=== PATIENT | female | born 1930 | race American Indian/Alaskan Native ===

== ENCOUNTER 2017-02-11 19:23 | Inpatient (IN) | payer MEDICARE, BC ==
[2017-02-11 19:23] VITALS: BMI 32.8
[2017-02-11] MEDS ORDERED: Sodium Chloride 0.9% 1,000 ML IV STA (20:05)
--- NOTE | 2017-02-11 20:42 | ED PDOC ---
HPI: Altered Mental Status Time Seen by Provider: 02/11/17 19:48 Chief Complaint (Nursing): Altered Mental Status Chief Complaint (Provider): Dementia History Per: Patient, Family Current Symptoms Are (Timing): Still Present Additional Complaint(s): Anne Marie Sears is a 86 y/o female, with a past medical history of Diabetes Mellitus and Dementia, presenting to the ER on 02/11/2017 for evaluation of her worsening dementia and confusion. Patient was brought in today by her family, who states she has been progressively showing symptoms such as forgetting things , spacing out during the middle of her conversations with her eyes rolling back. Specifically, she has not been eating as much as she routinely has over the past three weeks. The family today are worried about her health since she is a diabetic, prompting them to seek medical evaluation. The patient has no complaints at this time. However, the HPI is limited due to the patient's state of dementia. Past Medical History Reviewed: Historical Data, Nursing Documentation, Vital Signs Vital Signs: Last Vital Signs Temp 98 F 02/11/17 19:28 Pulse 69 02/11/17 19:28 Resp 16 02/11/17 19:28 BP 96/48 L 02/11/17 19:28 Pulse Ox 98 02/11/17 19:28 - Medical History PMH: Dementia, Diabetes, HTN - Surgical History Surgical History: No Surg Hx - Family History Family History: States: Unknown Family Hx - Social History Current smoker - smoking cessation education provided: No Alcohol: None Drugs: Denies - Home Medications Home Medications: Ambulatory Orders Medication Instructions Recorded Amlodipine/Atorvastatin [Caduet 10 1 tab PO DAILY 02/11/17 mg-10 mg] Aspirin [Aspirin Chewable] 81 mg PO DAILY 02/11/17 Insulin Glargine, Recombina 30 unit SC HS 02/11/17 [Lantus] Lisinopril/Hydrochlorothiazide 1 tab PO DAILY 02/11/17 [Lisinopril-Hydrochlorothiazide 25 mg-20 mg] Repaglinide [Prandin] 2 mg PO ACTID 02/11/17 Sitagliptin Phos/Metformin HCl 1 each PO BID 02/11/17 [Janumet 50-1,000 mg Tablet] Sitagliptin Phos/Metformin HCl 1 tab PO BID 02/12/17 [Janumet 50-1,000 mg Tablet] - Allergies Allergies/Adverse Reactions: Allergies Allergy/AdvReac Type Severity Reaction Status Date / Time No Known Allergies Allergy Verified 02/12/17 00:27 Review of Systems Review Of Systems: ROS cannot be obtained secondary to pt's inabilty to answer questions. Neurological: Positive for: Confusion Physical Exam - Reviewed Nursing Documentation Reviewed: Yes Vital Signs Reviewed: Yes - Physical Exam Appears: Positive for: Non-toxic, No Acute Distress (pt has soiled underpants ) Head Exam: Positive for: ATRAUMATIC, NORMOCEPHALIC Skin: Positive for: Normal Color, Warm, Dry Eye Exam: Positive for: Normal appearance, EOMI, PERRL Neck: Positive for: Normal, Painless ROM, Supple Cardiovascular/Chest: Positive for: Regular Rate, Rhythm. Negative for: Murmur Respiratory: Positive for: Normal Breath Sounds. Negative for: Wheezing, Respiratory Distress Gastrointestinal/Abdominal: Positive for: Normal Exam, Soft. Negative for: Tenderness Extremity: Positive for: Normal ROM, Other (pt has 5/5 strength in all four extremities ). Negative for: Deformity, Swelling Neurologic/Psych: Positive for: Alert, Oriented (x2), Other (pt shows global weakness ). Negative for: Motor/Sensory Deficits - Laboratory Results Result Diagrams: 02/11/17 20:25 02/11/17 20:25 - ECG O2 Sat by Pulse Oximetry: 98 Medical Decision Making Medical Decision Makin:48 Initial Impression- Worsening Dementia. Differential diagnosis includes but not limited to UTI vs. ACS vs. Psych Initial Plan- * EKG * Alcohol Serum * CMP * Lipase * Drug Screen * Troponin * CBC w/ differential * PT * PTT * CXR * Blood Cx * Urine Cx * Re-evaluated 22:24 Pt will be admitted to family practice. Currently waiting for call back from Dr. Louise. Will insert Robin to assess for post obstructive cause for acute renal failure. Likely pt is suffering from pre-renal insufficiency with potential for intrinsic kidney disease. 22:55 Case was consulted with Dr. Louise, who has agreed to dialyze the pt in the morning. Pt will be placed for telemetry for now unless condition deteriorates. Documented by Addison Forrester, acting as a scribe for Gavino Lares MD. All medical record entries made by the Scribe were at my direction and personally dictated by me. I have reviewed the chart and agree that the record accurately reflects my personal performance of the history, physical exam, medical decision making, and the department course for this patient. I have also personally directed, reviewed, and agree with the discharge instructions and disposition. Disposition - Clinical Impression Clinical Impression: Acute renal failure, Hyperkalemia - Disposition Disposition Time: 22:24 Condition: STABLE
[2017-02-11 21:09] LABS: BASO % 0.5 % (0.0-2.0); HEMATOCRIT 36.5 % (34.0-47.0); LYMPH # 0.9 K/uL (1.0-4.3); MEAN CELL VOLUME 86.3 fl (81.0-99.0); MEAN CORPUSCULAR HEMOGLOBIN 27.8 pg (27.0-31.0); MEAN CORPUSCULAR HGB CONC 32.2 g/dL (33.0-37.0); MEAN PLATELET VOLUME 10.3 fl (7.2-11.7); MONO # 0.6 K/uL (0.0-0.8); MONO % 7.7 % (0.0-10.0); NEUT # 5.8 K/uL (1.8-7.0); NEUT % 79.8 % (50.0-75.0); RED CELL DISTRIBUTION WIDTH 15.2 % (11.5-14.5); WHITE BLOOD COUNT 7.3 K/uL (4.8-10.8)
[2017-02-11 21:15] LABS: PARTIAL THROMBOPLASTIN TIME 27.7 Seconds (25.6-37.1)
[2017-02-11 21:22] LABS: ALB/GLOB RATIO 1.3 (1.0-2.1); ALCOHOL SERUM < 10 mg/dl (0-10); ALKALINE PHOSPHATASE 61 U/L (38-126); ALT/SGPT 24 U/L (9-52); AST/SGOT 28 U/L (14-36); BILIRUBIN,TOTAL 0.6 mg/dl (0.2-1.3); BLOOD UREA NITROGEN 69 mg/dl (7-17); CALCIUM 10.6 mg/dL (8.4-10.2); CHLORIDE 110 mmol/L (98-107); GFR AFRICAN-AMERICAN 4; GLUCOSE,RANDOM 138 mg/dL (65-105); LIPASE 716 U/L (23-300); SODIUM 140 mmol/l (132-148); TOTAL PROTEIN 7.4 G/DL (6.3-8.2)
[2017-02-11 21:32] LABS: CARBON DIOXIDE 8 mmol/L (22-30); POTASSIUM 6.7 MMOL/L (3.6-5.0)
[2017-02-11] MEDS ORDERED: Sod Polystyrene Sulf 15 gm/60 ml Oral Susp PO ONE (21:58)
[2017-02-11] MEDS ORDERED: Insulin Regular 100 units/ml IV STA (21:58)
[2017-02-11] MEDS ORDERED: Dextrose 50% SYRINGE Inj (50 ml) IVP ONE (21:58)
[2017-02-11] MEDS ORDERED: Albuterol 0.083% Inhal Sol (2.5 mg/3 mL) UD INH STA (21:58)
[2017-02-11] MEDS ORDERED: Albuterol 0.083% Inhal Sol (2.5 mg/3 mL) UD ONE (22:08)
[2017-02-11] MEDS ORDERED: Dextrose 50% SYRINGE Inj (50 ml) ONE (22:09)
[2017-02-11] MEDS ORDERED: Insulin Regular 100 units/ml ONE (22:09)
[2017-02-11] MEDS ORDERED: Sod Polystyrene Sulf 15 gm/60 ml Oral Susp ONE (22:11)
--- NOTE | 2017-02-11 22:58 | CP.PCM.HP ---
History of Present Illness - History of Present Illness History of Present Illness: CC: Decrease appetite, increased lethargy as per family History as per family at bedside 86F with baseline dementia brought in by ambulance for concernc of increased lethargy/sleepiness. Family reports decrease appetite for 2 weeks, increased sleepiness/lethargy x2 days, and low blood glucose x3 days at times requiring juice, and reports of urinary frequency x2 days. Nausea/vomiting x2 today with episode of incontinence in the ambulance. They deny any evidence of fevers, chills, diarrhea, falls, but one family member did say that she was complaining of "back pain" yesterday. PMD: Dr Barron (last visit 01/01/2017) PMH: Diabetes, Dementia, HTN; no [place]/TIA/CVA PSH: Denies Smoke: Never ALL: NKDA MARISABEL: See Med [facility] ED COURSE VSS: 36.6- 87- 98/57- 20- 100% CBC: 7.3>11.8/36.5<197, MCV- 86.3, Neut- 79.8%, but absolute neutrophils WNL CMP: 140/6.7H- 110/8L- 69/10.1, Gluc- 138H, ALP/AST/ALT- 61/28/24, TBili- 0.6, TProt/Alb- 7.4/4.1 Lipase:716H Troponin: 0.0730 Alcohol: < 10 AB.14/17/101/8.3/98.6/-21.2 Utox: Negative UA/UCx: PENDING BCx: PENDING CXR: no acute pathology ABD US: IMPRESSION: Small hepatic hemangioma; no gallstones or ductal dilatation EKG: SR, HR-74, no ST-T abnormalities, no T-wave abnormality noted Calcium Gluconate Insulin IVF Zofran Kayexalate Nephrology Consult (Dr Louise): Will dialyze in AM Present on Admission - Present on Admission Any Indicators Present on Admission: No Review of Systems - Review of Systems Systems not reviewed;Unavailable: Altered Mental Status Past Patient History - Past Social History Alcohol: None Drugs: Denies - CARDIAC Hx Hypertension: Yes - NEUROLOGICAL Hx Dementia: Yes - ENDOCRINE/METABOLIC Hx Endocrine Disorders: Yes Hx Diabetes Mellitus Type 1: Yes - HEMATOLOGICAL/ONCOLOGICAL Hx Blood Disorders: No - INTEGUMENTARY Hx Dermatological Problems: No - MUSCULOSKELETAL/RHEUMATOLOGICAL Hx Musculoskeletal Disorders: No - GASTROINTESTINAL Hx Gastrointestinal Disorders: No - GENITOURINARY/GYNECOLOGICAL Hx Genitourinary Disorders: No - PSYCHIATRIC Hx Psychophysiologic Disorder: No Hx Substance Use: No - SURGICAL HISTORY Hx Surgeries: No - ANESTHESIA Hx Anesthesia: No Meds Allergies/Adverse Reactions: Allergies Allergy/AdvReac Type Severity Reaction Status Date / Time No Known Allergies Allergy Verified 02/12/17 00:27 Physical Exam - Constitutional Appears: Non-toxic, No Acute Distress - Head Exam Head Exam: ATRAUMATIC, NORMAL INSPECTION - Eye Exam Eye Exam: EOMI, PERRL - Neck Exam Neck exam: Positive for: Full Rom, Normal Inspection. Negative for: Lymphadenopathy - Respiratory Exam Respiratory Exam: Clear to Auscultation Bilateral, NORMAL BREATHING PATTERN. absent: Rales, Wheezes - Cardiovascular Exam Cardiovascular Exam: Diastolic murmur, REGULAR RHYTHM. absent: JVD - GI/Abdominal Exam GI & Abdominal Exam: Hypoactive Bowel Sounds, Soft, Tenderness (epigastrum). absent: Guarding, Rebound - Extremities Exam Extremities exam: Positive for: full ROM, normal capillary refill, pedal pulses present. Negative for: calf tenderness, pedal edema, tenderness - Back Exam Back exam: CVA tenderness (L) - Neurological Exam Neurological exam: Alert (Awakens easily, but is only oriented to name at BASELINE) - Psychiatric Exam Psychiatric exam: Normal Affect - Skin Skin Exam: Dry, Intact, Warm Results - Vital Signs Recent Vital Signs: Last Vital Signs Temp 36.6 C 02/11/17 19:28 Pulse 69 02/11/17 19:28 Resp 16 02/11/17 19:28 BP 96/48 L 02/11/17 19:28 Pulse Ox 98 02/11/17 22:27 - Labs Result Diagrams: 02/11/17 20:25 02/11/17 23:35 Assessment & Plan (1) DIPAK (acute kidney injury) Assessment and Plan: Unclear etiology, but given reports of back pain and urinary frequency suspect nephrolithiasis vs. drug-induced vs. infectious (though less likely with absence of fevers or leukocytosis). BUN/Cr: 6.83 suggestive of intrinsic vs post-renal obstruction. ABG significant for pH of 7.14. - Nephrology Consult (Dr Louise): Will dialyze in AM - HOLD and minimize nephrotoxic drugs - monitor BUN/Cr, Potassium - f/u UA, UCx, rpt BMP - KUB - Urine lytes - EKG in AM - D5W + 2amps bicarb (100mEQ) @ 75cc/hr - d/w Dr Richardson Status: Acute (2) DVT prophylaxis Assessment and Plan: Heparin 5,000U, SC, Q8H Status: Acute (3) Diabetes Assessment and Plan: Chronic with last A1C- 8.1 (01/22/2017). There was a recent change from Humalog to Prandin ACTID. - HOLD renally excreted medications at this time - Accu-checks ACHS - Hypoglycemic Bundle Status: Chronic (4) Hypertension Assessment and Plan: Currently hypotensive, will hold medications. Status: Chronic (5) Dementia Assessment and Plan: Baseline dementia, oriented to person, lives by herself, ambulates without assistance at baseline, family assists with IADLs. Status: Chronic
--- NOTE | 2017-02-11 23:19 | US ---
EXAM: US Abdomen Complete CLINICAL HISTORY: 86 years old, female; Signs and symptoms; Vomiting; Additional info: Vomiting, confused, R/O cholecystitis TECHNIQUE: Real-time ultrasound of the abdomen (complete) with image documentation. EXAM DATE/TIME: 02/11/2017 9:09 PM COMPARISON: There are no prior studies for comparison. FINDINGS: Liver: There is a 1.7 x 1.2 x 2 cm hyperechoic nodule in the right lobe of the liver. There is mild increased echogenicity of the liver.There is hepatopedal flow in the main portal vein. Gallbladder: Gallbladder is only partially distended with no stones, sludge or wall thickening. Common bile duct: Common bile duct measures 3.8 mm in diameter Pancreas: Pancreas is partially obscured by bowel gas. Visualized portion of the pancreas is unremarkable. Kidneys: Kidneys are unremarkable. Spleen: Spleen is unremarkable. Aorta: Visualized portions of the aorta and inferior vena cava are unremarkable. Inferior vena cava: See above. IMPRESSION: Small hepatic hemangioma; no gallstones or ductal dilatation Patient was not tender over the gallbladder
[2017-02-11 23:50] LABS: ABG ALLEN TEST YES; ARTERIAL BLOOD GAS HCO3 8.3 mmol/L (21-28); ARTERIAL BLOOD GAS O2 CONTENT 15.8 ML/dL (15-23); ARTERIAL BLOOD GAS PH 7.14 (7.35-7.45); ARTERIAL BLOOD GAS PO2 101 mm/Hg (80-100); ARTERIAL BLOOD HGB O2 SAT 94.5 % (95.0-98.0); CARBOXYHEMOGLOBIN 0.8 % (0.5-1.5); HHB 1.3 % (0.0-5.0); METHEMOGLOBIN 3.4 % (0.0-3.0)
[2017-02-12] MEDS ORDERED: Glucagon Recombinant 1 mg Inj IM PRN (00:03)
[2017-02-12] MEDS ORDERED: Dextrose 50% SYRINGE Inj (50 ml) IV PRN (00:03)
[2017-02-12 00:44] LABS: ALB/GLOB RATIO 1.2 (1.0-2.1); BILIRUBIN,TOTAL 0.5 mg/dl (0.2-1.3); CALCIUM 10.6 mg/dL (8.4-10.2); POTASSIUM 6.1 MMOL/L (3.6-5.0); TOTAL PROTEIN 7.4 G/DL (6.3-8.2)
[2017-02-12] MEDS: NS IV SCH ×2 (01:06→02:03)
[2017-02-12] MEDS: DEXTROSE IV SCH ×2 (01:06→02:03)
[2017-02-12] MEDS: SODIUM BICARBONATE IV SCH ×2 (01:06→02:03)
[2017-02-12] MEDS ORDERED: Insulin Regular 100 units/ml SC ONE (01:29)
[2017-02-12] MEDS ORDERED: Albuterol 0.083% Inhal Sol (2.5 mg/3 mL) UD INH STA (01:30)
[2017-02-12] MEDS ORDERED: SODIUM BICARBONATE IV SCH (01:40)
[2017-02-12] MEDS ORDERED: NS IV SCH (01:40)
[2017-02-12] MEDS ORDERED: DEXTROSE IV SCH (01:40)
[2017-02-12] MEDS ORDERED: Sodium Chloride 0.9% 1,000 ML IV SCH (01:45)
[2017-02-12 05:27] LABS: CALCIUM 10.8 mg/dL (8.4-10.2)
[2017-02-12 05:45] LABS: POTASSIUM 6.2 MMOL/L (3.6-5.0)
[2017-02-12 06:43] LABS: BASO % 0.2 % (0.0-2.0); HEMATOCRIT 39.4 % (34.0-47.0); LYMPH # 0.6 K/uL (1.0-4.3); LYMPH % 5.1 % (20.0-40.0); MEAN CELL VOLUME 90.1 fl (81.0-99.0); MEAN CORPUSCULAR HEMOGLOBIN 27.6 pg (27.0-31.0); MEAN CORPUSCULAR HGB CONC 30.6 g/dL (33.0-37.0); MEAN PLATELET VOLUME 11.2 fl (7.2-11.7); MONO # 0.6 K/uL (0.0-0.8); MONO % 5.1 % (0.0-10.0); NEUT # 10.3 K/uL (1.8-7.0); NEUT % 89.6 % (50.0-75.0); NRBC % 0.1 % (0.0-0.0); PLATELET COUNT 168 K/uL (130-400); RED CELL DISTRIBUTION WIDTH 16.9 % (11.5-14.5); WHITE BLOOD COUNT 11.5 K/uL (4.8-10.8)
[2017-02-12 06:45] LABS: ALB/GLOB RATIO 1.3 (1.0-2.1); ALKALINE PHOSPHATASE 48 U/L (38-126); ALT/SGPT 12 U/L (9-52); AST/SGOT 32 U/L (14-36); BILIRUBIN,TOTAL 0.6 mg/dl (0.2-1.3); BLOOD UREA NITROGEN 66 mg/dl (7-17); CALCIUM 10.8 mg/dL (8.4-10.2); CHLORIDE 112 mmol/L (98-107); GFR AFRICAN-AMERICAN 4; GLUCOSE,RANDOM 160 mg/dL (65-105); LIPASE 764 U/L (23-300); SODIUM 150 mmol/l (132-148); TOTAL PROTEIN 7.6 G/DL (6.3-8.2)
[2017-02-12 06:50] LABS: CARBON DIOXIDE < 5 mmol/L (22-30); POTASSIUM 6.3 MMOL/L (3.6-5.0)
[2017-02-12] MEDS ORDERED: Insulin Lispro (humaLOG) 100 Units/ml Inj SC SCH (07:30)
[2017-02-12] MEDS ORDERED: Sod Polystyrene Sulf 15 gm/60 ml Oral Susp PO ONE (07:34)
[2017-02-12] MEDS: Insulin Regular 100 units/ml SC SCH ×4 (09:11→22:34)
[2017-02-12 10:01] LABS: NEUTROPHIL 90 % (42-75); TOTAL CELLS COUNTED 100
--- NOTE | 2017-02-12 10:05 | RAD ---
PROCEDURE: CHEST RADIOGRAPH, 1 VIEW HISTORY: worsening dementia, weakness COMPARISON: Comparison is made to the previous study dated 08/16/2013 FINDINGS: LUNGS: No evidence of new infiltrate or consolidation in the lungs. PLEURA: No pneumothorax or pleural fluid seen. CARDIOVASCULAR: Normal. OSSEOUS STRUCTURES: No significant abnormalities. VISUALIZED UPPER ABDOMEN: Normal. OTHER FINDINGS: None. IMPRESSION: No radiographic evidence of acute pulmonary disease.
--- NOTE | 2017-02-12 10:32 | CP.PCM.PN ---
Subjective - Date & Time of Evaluation Date of Evaluation: 02/12/17 Time of Evaluation: 07:15 - Subjective Subjective: Patient seen and examined at bedside, laying in bed, appears confused, follows few commands (squeeze my fingers/push my hands), did not verbally answer questions, via head gestures denies abd pain, chest pain, SOB. IVF running, patient spontaneously moving bilateral upper extremities. Sister is at bedside and reports patients older daughter and son are on their way to the hospital. Objective - Vital Signs/Intake and Output Vital Signs (last 24 hours): Temp Pulse Resp BP Pulse Ox 97.4 F L 70 16 109/58 L 95 02/12/17 09:00 02/12/17 09:00 02/12/17 09:00 02/12/17 09:00 02/12/17 09:00 - Medications Medications: Current Medications Dextrose (Dextrose 50% Inj) 0 ml IV STAT PRN; Protocol PRN Reason: Hyglycemia Protocol Dextrose (Glutose 15) 0 gm PO ONCE PRN; Protocol PRN Reason: Hypoglycemia Protocol Glucagon (Glucagen Diagnostic Kit) 0 mg IM STAT PRN; Protocol PRN Reason: Hypoglycemia Protocol Heparin Sodium (Porcine) (Heparin) 5,000 units SC Q8 FÉLIX PRN Reason: Protocol Last Admin: 02/12/17 09:13 Dose: Not Given Sodium Chloride (Sodium Chloride 0.9%) 1,000 mls @ 100 mls/hr IV .Q10H FÉLIX Stop: 02/13/17 01:40 Last Admin: 02/12/17 02:01 Dose: 100 mls/hr Sodium Bicarbonate 100 meq/ (Dextrose) 1,112.107 mls @ 101.101 mls/hr IV .Q11H FÉLIX Stop: 02/13/17 04:54 Last Admin: 02/12/17 05:15 Dose: 101.101 mls/hr Dextrose/Sodium Chloride (Dextrose 5%/0.45% Ns 1000 Ml) 1,000 mls @ 100 mls/hr IV .Q10H FÉLIX Stop: 02/13/17 10:17 Insulin Human Regular (Humulin R) 0 units SC ACHS FÉLIX PRN Reason: Protocol Last Admin: 02/12/17 09:11 Dose: Not Given - Labs Labs: 02/12/17 05:30 02/12/17 05:30 PT 11.2 Seconds (9.8-13.1) 02/11/17 20:25 INR 1.0 (0.9-1.2) 02/11/17 20:25 APTT 27.7 Seconds (25.6-37.1) 02/11/17 20:25 - Constitutional Appears: Confused - Head Exam Head Exam: ATRAUMATIC, NORMOCEPHALIC - Eye Exam Eye Exam: EOMI, PERRL - ENT Exam ENT Exam: Mucous Membranes Moist - Neck Exam Neck Exam: Full ROM. absent: Lymphadenopathy - Respiratory Exam Respiratory Exam: absent: Rhonchi, Wheezes - Cardiovascular Exam Cardiovascular Exam: REGULAR RHYTHM. absent: Gallop - GI/Abdominal Exam GI & Abdominal Exam: Soft, Diminished Bowel Sounds. absent: Tenderness - Exam Exam: absent: Bladder Distension (quiñones catheter in place) - Extremities Exam Extremities Exam: Full ROM. absent: Calf Tenderness, Pedal Edema - Back Exam Back Exam: absent: CVA tenderness (L), CVA tenderness (R) - Neurological Exam Neurological Exam: Alert, Awake (confused, follows few commands, not responding to questions verbally) - Psychiatric Exam Psychiatric exam: Flat Affect - Skin Skin Exam: Dry, Intact, Normal Color, Warm Assessment and Plan - Assessment and Plan (Free Text) Assessment: 86 yr old F admitted for change in mental status, lethargy, urinary frequency, decreased PO intake and vomiting x 2 episodes, found to have acute on chronic kidney disease, metabolic acidosis, hypotension, hyperkalemia. EKG sinus rhythm with premature supraventricular complexes, otherwise wnl. CXR:no radiographic evidence of acute pulmonary disease. Patient was treated with calcium gluconate , IVF, Nephrology was consulted and HD was scheduled, IR consult was called and HD catheter was placed, patient was transferred to ICU for further management. Patient has PMHx of baseline dementia, CKD stage III-A, NIDDM, HTN and HLD. Plan: 1. Acute on Chronic Kidney Injury -likely secondary to dehydration and infection (UTI) -leukocytosis 11.5 this AM, UA large leukocytes, afebrile -Abd xray: no nephrolithiasis -Abd US: Small hepatic hemangioma, no gallstones or ductal dilatation. - Nephrology Consult appreciated (Dr Louise): HD scheduled for now, IVF D5 1/2 NS and Bicarb at 100 mls/hr, will follow recommendations - HOLD and minimize nephrotoxic drugs - monitor BUN/Cr, Potassium - f/u UCx, BCx, CBC, CMP, procalcitonin 2. Delirium -acute, likely secondary to renal failure -baseline dementia -f/u Ucx, Bcx, procalcitonin 2. Diabetes -uncontrolled, chronic -HbA1c 8.1 (01/22/2017) -HOLD renally excreted medications at this time -Humulin R SC ACHS -Hypoglycemia protocol 3. Hypertension -chronic, patient currently hypotensive, -hold medications for now (home medications: Caudet 10-10= Amlodipine 10mg/ Atorvastatin 10mg PO QD and Lisinopril/HCTZ 20-25 mg PO QD) -monitor BP 4. Dementia -chronic, stable -Baseline dementia, lives by herself, ambulates without assistance at baseline, family assists with ADLs. 5. DVT prophylaxis -Heparin 5,000U, SC, Q8H -SCD's
--- NOTE | 2017-02-12 10:46 | CP.PCM.CON ---
History of Present Illness - History of Present Illness History of Present Illness: This patient who is 86 years old brought to the emergency room because of increasing mental changes and drowsiness and she was fond to have high potassium in the emergency room with a high BUN/creatinine and creatinine for which I was called to see this patient for further evaluation. Patient was given treatment for hyperkalemia as discussed with the ER physician. Her past medical history related to diabetes mellitus apparently also related to history of mental changes as well. Patient has been follow-up in the clinic and to have a serum creatinine has been normal or near-normal about that a few months ago. Medications reviewed and noted including lisinopril and hydrochlorothiazide. Social history I spoke to the son who is at the bedside and also the sister who is at the bedside. Review of Systems - Review of Systems Systems not reviewed;Unavailable: Respiratory Distress - Constitutional Constitutional: Anorexia, Fatigue, Malaise, Weakness - EENT Eyes: As Per HPI Nose/Mouth/Throat: As Per HPI - Cardiovascular Cardiovascular: absent: Chest Pain, Dyspnea, Leg Edema - Gastrointestinal Gastrointestinal: Nausea, Vomiting. absent: Abdominal Pain, Coffee Ground Emesis - Genitourinary Genitourinary: As Per HPI - Musculoskeletal Musculoskeletal: Abnormal Gait, Muscle Weakness - Neurological Neurological: Disequilibrium, Weakness - Hematologic/Lymphatic Hematologic: As Per HPI Past Patient History - Past Medical History & Family History Past Medical History?: Yes - Past Social History Alcohol: None Drugs: Denies - CARDIAC Hx Hypertension: Yes - PULMONARY Hx Respiratory Disorders: No - NEUROLOGICAL Hx Dementia: Yes - HEENT Hx HEENT Problems: No - RENAL Hx Chronic Kidney Disease: No - ENDOCRINE/METABOLIC Hx Endocrine Disorders: Yes Hx Diabetes Mellitus Type 1: Yes - HEMATOLOGICAL/ONCOLOGICAL Hx Blood Disorders: No - INTEGUMENTARY Hx Dermatological Problems: No - MUSCULOSKELETAL/RHEUMATOLOGICAL Hx Musculoskeletal Disorders: No - GASTROINTESTINAL Hx Gastrointestinal Disorders: No - GENITOURINARY/GYNECOLOGICAL Hx Genitourinary Disorders: No - PSYCHIATRIC Hx Psychophysiologic Disorder: No Hx Substance Use: No - SURGICAL HISTORY Hx Surgeries: No - ANESTHESIA Hx Anesthesia: No Meds Allergies/Adverse Reactions: Allergies Allergy/AdvReac Type Severity Reaction Status Date / Time No Known Allergies Allergy Verified 02/12/17 00:27 - Medications Medications: Current Medications Dextrose (Dextrose 50% Inj) 0 ml IV STAT PRN; Protocol PRN Reason: Hyglycemia Protocol Dextrose (Glutose 15) 0 gm PO ONCE PRN; Protocol PRN Reason: Hypoglycemia Protocol Glucagon (Glucagen Diagnostic Kit) 0 mg IM STAT PRN; Protocol PRN Reason: Hypoglycemia Protocol Heparin Sodium (Porcine) (Heparin) 5,000 units SC Q8 FÉLIX PRN Reason: Protocol Last Admin: 02/12/17 09:13 Dose: Not Given Sodium Chloride (Sodium Chloride 0.9%) 1,000 mls @ 100 mls/hr IV .Q10H FÉLIX Stop: 02/13/17 01:40 Last Admin: 02/12/17 02:01 Dose: 100 mls/hr Sodium Bicarbonate 100 meq/ (Dextrose) 1,112.107 mls @ 101.101 mls/hr IV .Q11H FÉLIX Stop: 02/13/17 04:54 Last Admin: 02/12/17 05:15 Dose: 101.101 mls/hr Dextrose/Sodium Chloride (Dextrose 5%/0.45% Ns 1000 Ml) 1,000 mls @ 100 mls/hr IV .Q10H FÉLIX Stop: 02/13/17 10:17 Insulin Human Regular (Humulin R) 0 units SC ACHS FÉLIX PRN Reason: Protocol Last Admin: 02/12/17 09:11 Dose: Not Given Physical Exam - Constitutional Appears: No Acute Distress - ENT Exam ENT Exam: Mucous Membranes Dry - Respiratory Exam Respiratory Exam: NORMAL BREATHING PATTERN. absent: Chest Wall Tenderness, Rales - Cardiovascular Exam Cardiovascular Exam: REGULAR RHYTHM. absent: JVD, Rubs - GI/Abdominal Exam GI & Abdominal Exam: Normal Bowel Sounds - Extremities Exam Extremities exam: Negative for: calf tenderness - Back Exam Back exam: absent: CVA tenderness (L), CVA tenderness (R) - Neurological Exam Neurological exam: Altered Results - Vital Signs Recent Vital Signs: Last Vital Signs Temp 97.4 F L 02/12/17 09:00 Pulse 95 H 02/12/17 09:00 Resp 16 02/12/17 09:00 BP 109/58 L 02/12/17 09:00 Pulse Ox 95 02/12/17 09:00 - Labs Result Diagrams: 02/12/17 05:30 02/12/17 05:30 Labs: Laboratory Results - last 24 hr 02/11/17 02/11/17 02/11/17 23:15 23:35 23:35 WBC RBC Hgb Hct MCV MCH MCHC RDW Plt Count MPV Neut % (Auto) Lymph % (Auto) [place] % (Auto) Eos % (Auto) Baso % (Auto) Neut # Lymph # [place] # Eos # Baso # Neutrophils % (Manual) Lymphocytes % (Manual) Monocytes % (Manual) Platelet Estimate Anisocytosis (manual) pCO2 17 L* pO2 101 H HCO3 8.3 L* ABG pH 7.14 L* ABG Total CO2 6.3 L ABG O2 Saturation 98.6 H ABG O2 Content 15.8 ABG Base Excess -21.2 L ABG Hemoglobin 11.8 ABG Carboxyhemoglobin 0.8 POC ABG HHb (Measured) 1.3 ABG Methemoglobin 3.4 H ABG O2 Capacity 16.0 Pawan Test Yes A-a O2 Difference 27.0 Hgb O2 Saturation 94.5 L FiO2 21.0 Blood Gas Comments Ra Crit Value Called To Dr narda mohan Crit Value Called By 333 Crit Value Read Back Y Blood Gas Notified Time 2350 Sodium 142 Potassium 6.1 H Chloride 109 H Carbon Dioxide 5 L* D Anion Gap 34 H BUN 67 H Creatinine 10.6 H* Est GFR ( Amer) 4 Est GFR (Non-Af Amer) 3 POC Glucose (mg/dL) Random Glucose 230 H Calcium 10.6 H Total Bilirubin 0.5 AST 26 ALT 19 Alkaline Phosphatase 58 Total Creatine Kinase Troponin I Total Protein 7.4 Albumin 4.1 Globulin 3.4 Albumin/Globulin Ratio 1.2 Lipase Urine Opiates Screen Negative Urine Methadone Screen Negative Ur Barbiturates Screen Negative Ur Phencyclidine Scrn Negative Ur Amphetamines Screen Negative U Benzodiazepines Scrn Negative U Oth Cocaine Metabols Negative U Cannabinoids Screen Negative 02/12/17 02/12/17 02/12/17 04:00 04:53 05:14 WBC RBC Hgb Hct MCV MCH MCHC RDW Plt Count MPV Neut % (Auto) Lymph % (Auto) [place] % (Auto) Eos % (Auto) Baso % (Auto) Neut # Lymph # [place] # Eos # Baso # Neutrophils % (Manual) Lymphocytes % (Manual) Monocytes % (Manual) Platelet Estimate Anisocytosis (manual) pCO2 pO2 HCO3 ABG pH ABG Total CO2 ABG O2 Saturation ABG O2 Content ABG Base Excess ABG Hemoglobin ABG Carboxyhemoglobin POC ABG HHb (Measured) ABG Methemoglobin ABG O2 Capacity [place] Test A-a O2 Difference Hgb O2 Saturation FiO2 Blood Gas Comments Crit Value Called To Crit Value Called By Crit Value Read Back Blood Gas Notified Time Sodium 143 Potassium 6.2 H* Chloride 110 H Carbon Dioxide 5 L* Anion Gap 34 H BUN 68 H Creatinine 11.1 H* Est GFR ( Amer) 4 Est GFR (Non-Af Amer) 3 POC Glucose (mg/dL) 174 H Random Glucose 177 H Calcium 10.8 H Total Bilirubin AST ALT Alkaline Phosphatase Total Creatine Kinase 88 Troponin I Total Protein Albumin Globulin Albumin/Globulin Ratio Lipase Urine Opiates Screen Urine Methadone Screen Ur Barbiturates Screen Ur Phencyclidine Scrn Ur Amphetamines Screen U Benzodiazepines Scrn U Oth Cocaine Metabols U Cannabinoids Screen 02/12/17 02/12/17 05:30 05:30 WBC 11.5 H D RBC 4.37 Hgb 12.0 Hct 39.4 MCV 90.1 D MCH 27.6 MCHC 30.6 L RDW 16.9 H Plt Count 168 MPV 11.2 Neut % (Auto) 89.6 H Lymph % (Auto) 5.1 L [place] % (Auto) 5.1 Eos % (Auto) 0.0 Baso % (Auto) 0.2 Neut # 10.3 H Lymph # 0.6 L [place] # 0.6 Eos # 0.0 Baso # 0.0 Neutrophils % (Manual) 90 H Lymphocytes % (Manual) 7 L Monocytes % (Manual) 3 Platelet Estimate Normal Anisocytosis (manual) Slight pCO2 pO2 HCO3 ABG pH ABG Total CO2 ABG O2 Saturation ABG O2 Content ABG Base Excess ABG Hemoglobin ABG Carboxyhemoglobin POC ABG HHb (Measured) ABG Methemoglobin ABG O2 Capacity [place] Test A-a O2 Difference Hgb O2 Saturation FiO2 Blood Gas Comments Crit Value Called To Crit Value Called By Crit Value Read Back Blood Gas Notified Time Sodium 150 H Potassium 6.3 H* Chloride 112 H Carbon Dioxide < 5 L* Anion Gap 39 H BUN 66 H Creatinine 11.1 H* Est GFR ( Amer) 4 Est GFR (Non-Af Amer) 3 POC Glucose (mg/dL) Random Glucose 160 H Calcium 10.8 H Total Bilirubin 0.6 AST 32 ALT 12 Alkaline Phosphatase 48 Total Creatine Kinase Troponin I 0.0730 Total Protein 7.6 Albumin 4.3 Globulin 3.3 Albumin/Globulin Ratio 1.3 Lipase 764 H Urine Opiates Screen Urine Methadone Screen Ur Barbiturates Screen Ur Phencyclidine Scrn Ur Amphetamines Screen U Benzodiazepines Scrn U Oth Cocaine Metabols U Cannabinoids Screen Assessment & Plan - Assessment and Plan (Free Text) Assessment: Patient appears to have acute kidney failure superimposed on chronic kidney disease? Patient has normal kidney function in October 2016 suggesting go for acute renal failure Hyperkalemia with metabolic acidosis Patient was treated for hyperkalemia and emergency room also on the floor including Kayexalate most recent dose Spoke to the son and the sister at the bedside and consent was taken for hemodialysis Spoke to the interventional radiologist to put temporary dialysis catheter Coordination of care was done including the resident and interventional radiologist and the nurse.
--- NOTE | 2017-02-12 10:48 | RAD ---
HISTORY: r/o nephrolithiasis COMPARISON: No prior. FINDINGS: BOWEL: Normal. No obstruction. No free air. BONES: Normal. OTHER FINDINGS: No radiographic evidence of nephrolithiasis. IMPRESSION: No active disease. No radiographic evidence of nephrolithiasis.
[2017-02-12 11:09] LABS: BLOOD UREA NITROGEN 64 mg/dl (7-17); CALCIUM 10.5 mg/dL (8.4-10.2); CHLORIDE 107 mmol/L (98-107); GFR AFRICAN-AMERICAN 4; GLUCOSE,RANDOM 248 mg/dL (65-105); SODIUM 147 mmol/l (132-148)
[2017-02-12] MEDS: Dextrose 5%/0.45% NS 1,000 ML IV SCH (11:11)
[2017-02-12 11:14] LABS: CARBON DIOXIDE < 5 mmol/L (22-30); POTASSIUM 5.9 MMOL/L (3.6-5.0)
[2017-02-12 11:52] LABS: RBC URINE 6 /hpf (0-3); URINE BACTERIA FEW (<OCC); URINE BILIRUBIN NEGATIVE (NEGATIVE); URINE BLOOD LARGE (NEGATIVE); URINE COLOR AMBER (YELLOW); URINE GLUCOSE (UA) 50 mg/dL (Normal); URINE KETONE NEGATIVE (NEGATIVE); URINE LEUKOCYTE ESTERASE LARGE Leu/uL (Negative); URINE PROTEIN >=500 mg/dL (NEGATIVE); URINE UROBILINOGEN 0.2-1.0 mg/dL (0.2-1.0); WBC URINE 17 /hpf (0-5)
[2017-02-12 11:57] LABS: ABG ALLEN TEST YES; ARTERIAL BLOOD GAS HCO3 5.6 mmol/L (21-28); ARTERIAL BLOOD GAS O2 CAPACITY 15.6 mL/dL (16-24); ARTERIAL BLOOD GAS O2 CONTENT 15.6 ML/dL (15-23); ARTERIAL BLOOD GAS PH 7.07 (7.35-7.45); ARTERIAL BLOOD GAS PO2 148 mm/Hg (80-100); ARTERIAL BLOOD HGB O2 SAT 96.9 % (95.0-98.0); CARBOXYHEMOGLOBIN 1.2 % (0.5-1.5); HHB 0.1 % (0.0-5.0); METHEMOGLOBIN 1.8 % (0.0-3.0)
[2017-02-12] MEDS ORDERED: Lidocaine 1% Inj (20ml) ONE (12:30)
--- NOTE | 2017-02-12 13:11 | PCM.SURG1 ---
Surgeon's Initial Post Op Note - Surgeon's Notes Surgeon: Telly Alcantara MD Business Line Controller: None Type of Anesthesia: Local Pre-Operative Diagnosis: Renal failure Operative Findings: Patent right IJV Post-Operative Diagnosis: Renal failure Operation Performed: Non tunneled HD catheter placement Specimen/Specimens Removed: None Estimated Blood Loss: EBL {In ML}: 4 Blood Products Given: N/A Drains Used: No Drains Post-Op Condition: Poor Date of Surgery/Procedure: 02/12/17 Time of Surgery/Procedure: 13:05
[2017-02-12] MEDS ORDERED: HYDROmorphone 0.5 mg/0.5 ml ISec IVP STA (13:38)
--- NOTE | 2017-02-12 13:50 | CARD ---
APPROVED REPORT EKG Measurement Heart [id number] <Conclusion> Sinus rhythm with premature supraventricular complexes Otherwise normal ECG
[2017-02-12] MEDS ORDERED: Sodium Bicarbonate 7.5% (0.9 MEQ/ML) 50ML INJ IV ONE (14:17)
[2017-02-12] MEDS ORDERED: Sodium Chloride 0.9% 250 ML IV ONE (14:24)
--- NOTE | 2017-02-12 14:35 | CP.CCUPN ---
CCU Subjective - Physician Review Events Since Last Encounter (Free Text): 02/12/17 19:48 The Patient was seen and examined at the bedside with the ICU team. Management issues were discussed and formulated. 86 Y/O F with PMHx of HTN, Diabetes and Dementia, was brought to the emergency room last night for increasing mental changes and drowsiness and she was found to be in Acute Kidney Injury with high potassium and severe metabolic acidosis, ICU consulted today for worsening renal function, persistent hyperkalemia and AMS/ Delirium Patient on IV fluids and Bicarb drip Patient underwent Right IJ non tunneled HD catheter placement, and currently started on HD. She is slightly confused, pulling lines and oplaced on soft restrains. Patient comfortable, NAD Saturating 100% on RA AFebrile CCU Objective - Vital Signs / Intake & Output Vital Signs (Last 4 hours): Vital Signs Temp Pulse Resp BP Pulse Ox 02/12/17 14:00 89 29 H 85/70 L 100 02/12/17 13:02 93 H 36 H 104/48 L 100 02/12/17 11:55 96 F L 90 30 H 119/55 L 100 - Physical Exam Physical Exam Limitations: Positive for: Altered Mental Status, Clinical Condition, Uncooperative Head: Positive for: Atraumatic, Normocephalic. Negative for: Tenderness, Contusion, Swelling, Ecchymosis Pupils: Positive for: PERRL. Negative for: Sluggish, Non-Reactive, Pinpoint Extroacular Muscles: Positive for: EOMI. Negative for: Gaze Palsy, Entrapment Conjunctiva: Positive for: Normal. Negative for: Injected, Icteric Mouth: Positive for: Dry Pharnyx: Positive for: Normal Nose (Internal): Positive for: Normal Inspection Neck: Positive for: Normal Range of Motion, Trachea Midline. Negative for: Meningeal Signs, MIDLINE TENDERNESS, Paraspinal Tenderness, JVD, Lymphadenopathy , Bruit, Other Respiratory/Chest: Positive for: Good Air Exchange, Tachypneic. Negative for: Respiratory Distress, Accessory Muscle Use, Wheezes, Decreased Breath Sounds, Rales, Retracting, Rhonchi Cardiovascular: Positive for: Regular Rate and Rhythm, Normal S1, S2, Peripheal Pulses Present. Negative for: Murmurs, Irregular Rhythm, Tachycardic, Bradycardic Abdomen: Negative for: Tenderness, Distention Upper Extremity: Positive for: Normal Inspection, NORMAL PULSES. Negative for: Edema Lower Extremity: Positive for: Normal Inspection, NORMAL PULSES. Negative for: Edema, CALF TENDERNESS Neurological: Positive for: Motor Func Grossly Intact, Normal Sensory Function Psychiatric: Positive for: Anxious, Agitated - Medications Active Medications: Active Medications Generic Name Dose Route Start Last Admin Trade Name Freq PRN Reason Stop Dose Admin Dextrose 0 ml 02/12/17 00:03 Dextrose 50% Inj IV STAT PRN Hyglycemia Protocol Protocol Dextrose 0 gm 02/12/17 00:03 Glutose 15 PO ONCE PRN Hypoglycemia Protocol Protocol Glucagon 0 mg 02/12/17 00:03 Glucagen Diagnostic Kit IM STAT PRN Hypoglycemia Protocol Protocol Heparin Sodium (Porcine) 5,000 units 02/12/17 01:00 02/12/17 09:13 Heparin SC Not Given Q8 FÉLIX Protocol Sodium Bicarbonate 100 meq/ 1,112.107 mls @ 101.101 mls/hr 02/12/17 04:54 05:15 Dextrose IV 02/13/17 04:54 101.101 mls/hr .Q11H FÉLIX Administration Dextrose/Sodium Chloride 1,000 mls @ 100 mls/hr 02/12/17 10:30 02/12/17 11:11 Dextrose 5%/0.45% Ns 1000 Ml IV 02/13/17 10:17 100 mls/hr .Q10H FÉLIX Administration Sodium Chloride 250 mls @ 500 mls/hr 02/12/17 14:24 Sodium Chloride 0.9% IV 02/12/17 14:53 .Q30M ONE Insulin Human Regular 0 units 02/12/17 07:30 02/12/17 09:11 Humulin R SC Not Given ACHS FÉLIX Protocol Sodium Bicarbonate 89.2 meq 02/12/17 14:17 Sodium Bicarbonate 7.5% (0.9 Meq/Ml) 50 Ml IV 02/12/17 14:18 ONCE ONE - Patient Studies Lab Studies: Lab Studies 02/12/17 02/12/17 02/12/17 Range/Units 13:42 11:50 11:45 WBC (4.8-10.8) K/uL RBC (3.80-5.20) Mil/uL Hgb (12.0-16.0) g/dL Hct (34.0-47.0) % MCV (81.0-99.0) fl MCH (27.0-31.0) pg MCHC (33.0-37.0) g/dL RDW (11.5-14.5) % Plt Count (130-400) K/uL MPV (7.2-11.7) fl Neut % (Auto) (50.0-75.0) % Lymph % (Auto) (20.0-40.0) % [place] % (Auto) (0.0-10.0) % Eos % (Auto) (0.0-4.0) % Baso % (Auto) (0.0-2.0) % Neut # (1.8-7.0) K/uL Lymph # (1.0-4.3) K/uL [place] # (0.0-0.8) K/uL Eos # (0.0-0.7) K/uL Baso # (0.0-0.2) K/uL Neutrophils % (Manual) (42-75) % Lymphocytes % (Manual) (20-50) % Monocytes % (Manual) (0-10) % Platelet Estimate (NORMAL) Anisocytosis (manual) pCO2 11 L* (35-45) mm/Hg pO2 148 H (80-100) mm/Hg HCO3 5.6 L* (21-28) mmol/L ABG pH 7.07 L* (7.35-7.45) ABG Total CO2 3.5 L (22-28) mmol/L ABG O2 Saturation 99.9 H (95-98) % ABG O2 Content 15.6 (15-23) ML/dL ABG Base Excess -24.8 L (-2.0-3.0) mmol/L ABG Hemoglobin 11.2 L (11.7-17.4) g/dL ABG Carboxyhemoglobin 1.2 (0.5-1.5) % POC ABG HHb (Measured) 0.1 (0.0-5.0) % ABG Methemoglobin 1.8 (0.0-3.0) % ABG O2 Capacity 15.6 L (16-24) mL/dL Pawan Test Yes A-a O2 Difference 38.0 mm/Hg Hgb O2 Saturation 96.9 (95.0-98.0) % FiO2 28.0 % Blood Gas Comments Crit Value Called To Dr sam calixto Crit Value Called By Ms Crit Value Read Back Y Blood Gas Notified Time 1155 Sodium (132-148) mmol/l Potassium (3.6-5.0) MMOL/L Chloride (98-107) mmol/L Carbon Dioxide (22-30) mmol/L Anion Gap (10-20) BUN (7-17) mg/dl Creatinine (0.7-1.2) mg/dL Est GFR ( Amer) Est GFR (Non-Af Amer) POC Glucose (mg/dL) 334 H 274 H (65-110) mg/dL Random Glucose (65-105) mg/dL Calcium (8.4-10.2) mg/dL Total Bilirubin (0.2-1.3) mg/dl AST (14-36) U/L ALT (9-52) U/L Alkaline Phosphatase (38-126) U/L Total Creatine Kinase (30-135) U/L Troponin I (0.00-0.120) ng/mL Total Protein (6.3-8.2) G/DL Albumin (3.5-5.0) g/dL Globulin (2.2-3.9) gm/dL Albumin/Globulin Ratio (1.0-2.1) Lipase (23-300) U/L Urine Color (YELLOW) Urine Clarity (Clear) Urine pH (5.0-8.0) Ur Specific [place] (1.003-1.030) Urine Protein (NEGATIVE) mg/dL Urine Glucose (UA) (Normal) mg/dL Urine Ketones (NEGATIVE) mg/dL Urine Blood (NEGATIVE) Urine Nitrate (NEGATIVE) Urine Bilirubin (NEGATIVE) Urine Urobilinogen (0.2-1.0) mg/dL Ur Leukocyte Esterase (Negative) [place]/uL Urine RBC (Auto) (0-3) /hpf Urine Microscopic WBC (0-5) /hpf Ur Squamous Epith Cells (0-5) /hpf Amorphous Sediment (<OCC) /ul Urine Bacteria (<OCC) Hyaline Casts (0-2) /hpf Ur Random Sodium meq/L Ur Random Potassium mmol/L Urine Opiates Screen (NEGATIVE) Urine Methadone Screen (NEGATIVE) Ur Barbiturates Screen (NEGATIVE) Ur Phencyclidine Scrn (NEGATIVE) Ur Amphetamines Screen (NEGATIVE) U Benzodiazepines Scrn (NEGATIVE) U Oth Cocaine Metabols (NEGATIVE) U Cannabinoids Screen (NEGATIVE) 02/12/17 02/12/17 02/12/17 Range/Units 11:16 11:15 10:46 WBC (4.8-10.8) K/uL RBC (3.80-5.20) Mil/uL Hgb (12.0-16.0) g/dL Hct (34.0-47.0) % MCV (81.0-99.0) fl MCH (27.0-31.0) pg MCHC (33.0-37.0) g/dL RDW (11.5-14.5) % Plt Count (130-400) K/uL MPV (7.2-11.7) fl Neut % (Auto) (50.0-75.0) % Lymph % (Auto) (20.0-40.0) % [place] % (Auto) (0.0-10.0) % Eos % (Auto) (0.0-4.0) % Baso % (Auto) (0.0-2.0) % Neut # (1.8-7.0) K/uL Lymph # (1.0-4.3) K/uL [place] # (0.0-0.8) K/uL Eos # (0.0-0.7) K/uL Baso # (0.0-0.2) K/uL Neutrophils % (Manual) (42-75) % Lymphocytes % (Manual) (20-50) % Monocytes % (Manual) (0-10) % Platelet Estimate (NORMAL) Anisocytosis (manual) pCO2 (35-45) mm/Hg pO2 (80-100) mm/Hg HCO3 (21-28) mmol/L ABG pH (7.35-7.45) ABG Total CO2 (22-28) mmol/L ABG O2 Saturation (95-98) % ABG O2 Content (15-23) ML/dL ABG Base Excess (-2.0-3.0) mmol/L ABG Hemoglobin (11.7-17.4) g/dL ABG Carboxyhemoglobin (0.5-1.5) % POC ABG HHb (Measured) (0.0-5.0) % ABG Methemoglobin (0.0-3.0) % ABG O2 Capacity (16-24) mL/dL Pawan Test A-a O2 Difference mm/Hg Hgb O2 Saturation (95.0-98.0) % FiO2 % Blood Gas Comments Crit Value Called To Crit Value Called By Crit Value Read Back Blood Gas Notified Time Sodium 147 (132-148) mmol/l Potassium 5.9 H (3.6-5.0) MMOL/L Chloride 107 (98-107) mmol/L Carbon Dioxide < 5 L* (22-30) mmol/L Anion Gap 41 H (10-20) BUN 64 H (7-17) mg/dl Creatinine 11.3 H* (0.7-1.2) mg/dL Est GFR ( Amer) 4 Est GFR (Non-Af Amer) 3 POC Glucose (mg/dL) (65-110) mg/dL Random Glucose 248 H (65-105) mg/dL Calcium 10.5 H (8.4-10.2) mg/dL Total Bilirubin (0.2-1.3) mg/dl AST (14-36) U/L ALT (9-52) U/L Alkaline Phosphatase (38-126) U/L Total Creatine Kinase (30-135) U/L Troponin I (0.00-0.120) ng/mL Total Protein (6.3-8.2) G/DL Albumin (3.5-5.0) g/dL Globulin (2.2-3.9) gm/dL Albumin/Globulin Ratio (1.0-2.1) Lipase (23-300) U/L Urine Color Lulu (YELLOW) Urine Clarity Cloudy (Clear) Urine pH 5.0 (5.0-8.0) Ur Specific [place] 1.019 (1.003-1.030) Urine Protein >=500 (NEGATIVE) mg/dL Urine Glucose (UA) 50 (Normal) mg/dL Urine Ketones Negative (NEGATIVE) mg/dL Urine Blood Large (NEGATIVE) Urine Nitrate Negative (NEGATIVE) Urine Bilirubin Negative (NEGATIVE) Urine Urobilinogen 0.2-1.0 (0.2-1.0) mg/dL Ur Leukocyte Esterase Large (Negative) [place]/uL Urine RBC (Auto) 6 H (0-3) /hpf Urine Microscopic WBC 17 H (0-5) /hpf Ur Squamous Epith Cells < 1 (0-5) /hpf Amorphous Sediment Occ H (<OCC) /ul Urine Bacteria Few H (<OCC) Hyaline Casts 6-10 H (0-2) /hpf Ur Random Sodium 42 meq/L Ur Random Potassium 20.0 mmol/L Urine Opiates Screen (NEGATIVE) Urine Methadone Screen (NEGATIVE) Ur Barbiturates Screen (NEGATIVE) Ur Phencyclidine Scrn (NEGATIVE) Ur Amphetamines Screen (NEGATIVE) U Benzodiazepines Scrn (NEGATIVE) U Oth Cocaine Metabols (NEGATIVE) U Cannabinoids Screen (NEGATIVE) 02/12/17 02/12/17 02/12/17 Range/Units 05:30 05:30 05:14 WBC 11.5 H D (4.8-10.8) K/uL RBC 4.37 (3.80-5.20) Mil/uL Hgb 12.0 (12.0-16.0) g/dL Hct 39.4 (34.0-47.0) % MCV 90.1 D (81.0-99.0) fl MCH 27.6 (27.0-31.0) pg MCHC 30.6 L (33.0-37.0) g/dL RDW 16.9 H (11.5-14.5) % Plt Count 168 (130-400) K/uL MPV 11.2 (7.2-11.7) fl Neut % (Auto) 89.6 H (50.0-75.0) % Lymph % (Auto) 5.1 L (20.0-40.0) % [place] % (Auto) 5.1 (0.0-10.0) % Eos % (Auto) 0.0 (0.0-4.0) % Baso % (Auto) 0.2 (0.0-2.0) % Neut # 10.3 H (1.8-7.0) K/uL Lymph # 0.6 L (1.0-4.3) K/uL [place] # 0.6 (0.0-0.8) K/uL Eos # 0.0 (0.0-0.7) K/uL Baso # 0.0 (0.0-0.2) K/uL Neutrophils % (Manual) 90 H (42-75) % Lymphocytes % (Manual) 7 L (20-50) % Monocytes % (Manual) 3 (0-10) % Platelet Estimate Normal (NORMAL) Anisocytosis (manual) Slight pCO2 (35-45) mm/Hg pO2 (80-100) mm/Hg HCO3 (21-28) mmol/L ABG pH (7.35-7.45) ABG Total CO2 (22-28) mmol/L ABG O2 Saturation (95-98) % ABG O2 Content (15-23) ML/dL ABG Base Excess (-2.0-3.0) mmol/L ABG Hemoglobin (11.7-17.4) g/dL ABG Carboxyhemoglobin (0.5-1.5) % POC ABG HHb (Measured) (0.0-5.0) % ABG Methemoglobin (0.0-3.0) % ABG O2 Capacity (16-24) mL/dL Pawan Test A-a O2 Difference mm/Hg Hgb O2 Saturation (95.0-98.0) % FiO2 % Blood Gas Comments Crit Value Called To Crit Value Called By Crit Value Read Back Blood Gas Notified Time Sodium 150 H (132-148) mmol/l Potassium 6.3 H* (3.6-5.0) MMOL/L Chloride 112 H (98-107) mmol/L Carbon Dioxide < 5 L* (22-30) mmol/L Anion Gap 39 H (10-20) BUN 66 H (7-17) mg/dl Creatinine 11.1 H* (0.7-1.2) mg/dL Est GFR ( Amer) 4 Est GFR (Non-Af Amer) 3 POC Glucose (mg/dL) 174 H (65-110) mg/dL Random Glucose 160 H (65-105) mg/dL Calcium 10.8 H (8.4-10.2) mg/dL Total Bilirubin 0.6 (0.2-1.3) mg/dl AST 32 (14-36) U/L ALT 12 (9-52) U/L Alkaline Phosphatase 48 (38-126) U/L Total Creatine Kinase (30-135) U/L Troponin I 0.0730 (0.00-0.120) ng/mL Total Protein 7.6 (6.3-8.2) G/DL Albumin 4.3 (3.5-5.0) g/dL Globulin 3.3 (2.2-3.9) gm/dL Albumin/Globulin Ratio 1.3 (1.0-2.1) Lipase 764 H (23-300) U/L Urine Color (YELLOW) Urine Clarity (Clear) Urine pH (5.0-8.0) Ur Specific [place] (1.003-1.030) Urine Protein (NEGATIVE) mg/dL Urine Glucose (UA) (Normal) mg/dL Urine Ketones (NEGATIVE) mg/dL Urine Blood (NEGATIVE) Urine Nitrate (NEGATIVE) Urine Bilirubin (NEGATIVE) Urine Urobilinogen (0.2-1.0) mg/dL Ur Leukocyte Esterase (Negative) [place]/uL Urine RBC (Auto) (0-3) /hpf Urine Microscopic WBC (0-5) /hpf Ur Squamous Epith Cells (0-5) /hpf Amorphous Sediment (<OCC) /ul Urine Bacteria (<OCC) Hyaline Casts (0-2) /hpf Ur Random Sodium meq/L Ur Random Potassium mmol/L Urine Opiates Screen (NEGATIVE) Urine Methadone Screen (NEGATIVE) Ur Barbiturates Screen (NEGATIVE) Ur Phencyclidine Scrn (NEGATIVE) Ur Amphetamines Screen (NEGATIVE) U Benzodiazepines Scrn (NEGATIVE) U Oth Cocaine Metabols (NEGATIVE) U Cannabinoids Screen (NEGATIVE) 02/12/17 02/12/17 02/11/17 Range/Units 04:53 04:00 23:35 WBC (4.8-10.8) K/uL RBC (3.80-5.20) Mil/uL Hgb (12.0-16.0) g/dL Hct (34.0-47.0) % MCV (81.0-99.0) fl MCH (27.0-31.0) pg MCHC (33.0-37.0) g/dL RDW (11.5-14.5) % Plt Count (130-400) K/uL MPV (7.2-11.7) fl Neut % (Auto) (50.0-75.0) % Lymph % (Auto) (20.0-40.0) % [place] % (Auto) (0.0-10.0) % Eos % (Auto) (0.0-4.0) % Baso % (Auto) (0.0-2.0) % Neut # (1.8-7.0) K/uL Lymph # (1.0-4.3) K/uL [place] # (0.0-0.8) K/uL Eos # (0.0-0.7) K/uL Baso # (0.0-0.2) K/uL Neutrophils % (Manual) (42-75) % Lymphocytes % (Manual) (20-50) % Monocytes % (Manual) (0-10) % Platelet Estimate (NORMAL) Anisocytosis (manual) pCO2 17 L* (35-45) mm/Hg pO2 101 H (80-100) mm/Hg HCO3 8.3 L* (21-28) mmol/L ABG pH 7.14 L* (7.35-7.45) ABG Total CO2 6.3 L (22-28) mmol/L ABG O2 Saturation 98.6 H (95-98) % ABG O2 Content 15.8 (15-23) ML/dL ABG Base Excess -21.2 L (-2.0-3.0) mmol/L ABG Hemoglobin 11.8 (11.7-17.4) g/dL ABG Carboxyhemoglobin 0.8 (0.5-1.5) % POC ABG HHb (Measured) 1.3 (0.0-5.0) % ABG Methemoglobin 3.4 H (0.0-3.0) % ABG O2 Capacity 16.0 (16-24) mL/dL Pawan Test Yes A-a O2 Difference 27.0 mm/Hg Hgb O2 Saturation 94.5 L (95.0-98.0) % FiO2 21.0 % Blood Gas Comments Ra Crit Value Called To Dr narda mohan Crit Value Called By 333 Crit Value Read Back Y Blood Gas Notified Time 2350 Sodium 143 (132-148) mmol/l Potassium 6.2 H* (3.6-5.0) MMOL/L Chloride 110 H (98-107) mmol/L Carbon Dioxide 5 L* (22-30) mmol/L Anion Gap 34 H (10-20) BUN 68 H (7-17) mg/dl Creatinine 11.1 H* (0.7-1.2) mg/dL Est GFR ( Amer) 4 Est GFR (Non-Af Amer) 3 POC Glucose (mg/dL) (65-110) mg/dL Random Glucose 177 H (65-105) mg/dL Calcium 10.8 H (8.4-10.2) mg/dL Total Bilirubin (0.2-1.3) mg/dl AST (14-36) U/L ALT (9-52) U/L Alkaline Phosphatase (38-126) U/L Total Creatine Kinase 88 (30-135) U/L Troponin I (0.00-0.120) ng/mL Total Protein (6.3-8.2) G/DL Albumin (3.5-5.0) g/dL Globulin (2.2-3.9) gm/dL Albumin/Globulin Ratio (1.0-2.1) Lipase (23-300) U/L Urine Color (YELLOW) Urine Clarity (Clear) Urine pH (5.0-8.0) Ur Specific [place] (1.003-1.030) Urine Protein (NEGATIVE) mg/dL Urine Glucose (UA) (Normal) mg/dL Urine Ketones (NEGATIVE) mg/dL Urine Blood (NEGATIVE) Urine Nitrate (NEGATIVE) Urine Bilirubin (NEGATIVE) Urine Urobilinogen (0.2-1.0) mg/dL Ur Leukocyte Esterase (Negative) [place]/uL Urine RBC (Auto) (0-3) /hpf Urine Microscopic WBC (0-5) /hpf Ur Squamous Epith Cells (0-5) /hpf Amorphous Sediment (<OCC) /ul Urine Bacteria (<OCC) Hyaline Casts (0-2) /hpf Ur Random Sodium meq/L Ur Random Potassium mmol/L Urine Opiates Screen (NEGATIVE) Urine Methadone Screen (NEGATIVE) Ur Barbiturates Screen (NEGATIVE) Ur Phencyclidine Scrn (NEGATIVE) Ur Amphetamines Screen (NEGATIVE) U Benzodiazepines Scrn (NEGATIVE) U Oth Cocaine Metabols (NEGATIVE) U Cannabinoids Screen (NEGATIVE) 02/11/17 02/11/17 Range/Units 23:35 23:15 WBC (4.8-10.8) K/uL RBC (3.80-5.20) Mil/uL Hgb (12.0-16.0) g/dL Hct (34.0-47.0) % MCV (81.0-99.0) fl MCH (27.0-31.0) pg MCHC (33.0-37.0) g/dL RDW (11.5-14.5) % Plt Count (130-400) K/uL MPV (7.2-11.7) fl Neut % (Auto) (50.0-75.0) % Lymph % (Auto) (20.0-40.0) % [place] % (Auto) (0.0-10.0) % Eos % (Auto) (0.0-4.0) % Baso % (Auto) (0.0-2.0) % Neut # (1.8-7.0) K/uL Lymph # (1.0-4.3) K/uL [place] # (0.0-0.8) K/uL Eos # (0.0-0.7) K/uL Baso # (0.0-0.2) K/uL Neutrophils % (Manual) (42-75) % Lymphocytes % (Manual) (20-50) % Monocytes % (Manual) (0-10) % Platelet Estimate (NORMAL) Anisocytosis (manual) pCO2 (35-45) mm/Hg pO2 (80-100) mm/Hg HCO3 (21-28) mmol/L ABG pH (7.35-7.45) ABG Total CO2 (22-28) mmol/L ABG O2 Saturation (95-98) % ABG O2 Content (15-23) ML/dL ABG Base Excess (-2.0-3.0) mmol/L ABG Hemoglobin (11.7-17.4) g/dL ABG Carboxyhemoglobin (0.5-1.5) % POC ABG HHb (Measured) (0.0-5.0) % ABG Methemoglobin (0.0-3.0) % ABG O2 Capacity (16-24) mL/dL Pawan Test A-a O2 Difference mm/Hg Hgb O2 Saturation (95.0-98.0) % FiO2 % Blood Gas Comments Crit Value Called To Crit Value Called By Crit Value Read Back Blood Gas Notified Time Sodium 142 (132-148) mmol/l Potassium 6.1 H (3.6-5.0) MMOL/L Chloride 109 H (98-107) mmol/L Carbon Dioxide 5 L* D (22-30) mmol/L Anion Gap 34 H (10-20) BUN 67 H (7-17) mg/dl Creatinine 10.6 H* (0.7-1.2) mg/dL Est GFR ( Amer) 4 Est GFR (Non-Af Amer) 3 POC Glucose (mg/dL) (65-110) mg/dL Random Glucose 230 H (65-105) mg/dL Calcium 10.6 H (8.4-10.2) mg/dL Total Bilirubin 0.5 (0.2-1.3) mg/dl AST 26 (14-36) U/L ALT 19 (9-52) U/L Alkaline Phosphatase 58 (38-126) U/L Total Creatine Kinase (30-135) U/L Troponin I (0.00-0.120) ng/mL Total Protein 7.4 (6.3-8.2) G/DL Albumin 4.1 (3.5-5.0) g/dL Globulin 3.4 (2.2-3.9) gm/dL Albumin/Globulin Ratio 1.2 (1.0-2.1) Lipase (23-300) U/L Urine Color (YELLOW) Urine Clarity (Clear) Urine pH (5.0-8.0) Ur Specific [place] (1.003-1.030) Urine Protein (NEGATIVE) mg/dL Urine Glucose (UA) (Normal) mg/dL Urine Ketones (NEGATIVE) mg/dL Urine Blood (NEGATIVE) Urine Nitrate (NEGATIVE) Urine Bilirubin (NEGATIVE) Urine Urobilinogen (0.2-1.0) mg/dL Ur Leukocyte Esterase (Negative) [place]avia/uL Urine RBC (Auto) (0-3) /hpf Urine Microscopic WBC (0-5) /hpf Ur Squamous Epith Cells (0-5) /hpf Amorphous Sediment (<OCC) /ul Urine Bacteria (<OCC) Hyaline Casts (0-2) /hpf Ur Random Sodium meq/L Ur Random Potassium mmol/L Urine Opiates Screen Negative (NEGATIVE) Urine Methadone Screen Negative (NEGATIVE) Ur Barbiturates Screen Negative (NEGATIVE) Ur Phencyclidine Scrn Negative (NEGATIVE) Ur Amphetamines Screen Negative (NEGATIVE) U Benzodiazepines Scrn Negative (NEGATIVE) U Oth Cocaine Metabols Negative (NEGATIVE) U Cannabinoids Screen Negative (NEGATIVE) Laboratory Results - last 24 hr 02/11/17 02/11/17 02/11/17 23:15 23:35 23:35 WBC RBC Hgb Hct MCV MCH MCHC RDW Plt Count MPV Neut % (Auto) Lymph % (Auto) [place] % (Auto) Eos % (Auto) Baso % (Auto) Neut # Lymph # [place] # Eos # Baso # Neutrophils % (Manual) Lymphocytes % (Manual) Monocytes % (Manual) Platelet Estimate Anisocytosis (manual) pCO2 17 L* pO2 101 H HCO3 8.3 L* ABG pH 7.14 L* ABG Total CO2 6.3 L ABG O2 Saturation 98.6 H ABG O2 Content 15.8 ABG Base Excess -21.2 L ABG Hemoglobin 11.8 ABG Carboxyhemoglobin 0.8 POC ABG HHb (Measured) 1.3 ABG Methemoglobin 3.4 H ABG O2 Capacity 16.0 Pawan Test Yes A-a O2 Difference 27.0 Hgb O2 Saturation 94.5 L FiO2 21.0 Blood Gas Comments Ra Crit Value Called To Dr narda mohan Crit Value Called By 333 Crit Value Read Back Y Blood Gas Notified Time 2350 Sodium 142 Potassium 6.1 H Chloride 109 H Carbon Dioxide 5 L* D Anion Gap 34 H BUN 67 H Creatinine 10.6 H* Est GFR ( Amer) 4 Est GFR (Non-Af Amer) 3 POC Glucose (mg/dL) Random Glucose 230 H Calcium 10.6 H Total Bilirubin 0.5 AST 26 ALT 19 Alkaline Phosphatase 58 Total Creatine Kinase Troponin I Total Protein 7.4 Albumin 4.1 Globulin 3.4 Albumin/Globulin Ratio 1.2 Lipase Urine Color Urine Clarity Urine pH Ur Specific [place] Urine Protein Urine Glucose (UA) Urine Ketones Urine Blood Urine Nitrate Urine Bilirubin Urine Urobilinogen Ur Leukocyte Esterase Urine RBC (Auto) Urine Microscopic WBC Ur Squamous Epith Cells Amorphous Sediment Urine Bacteria Hyaline Casts Ur Random Sodium Ur Random Potassium Urine Opiates Screen Negative Urine Methadone Screen Negative Ur Barbiturates Screen Negative Ur Phencyclidine Scrn Negative Ur Amphetamines Screen Negative U Benzodiazepines Scrn Negative U Oth Cocaine Metabols Negative U Cannabinoids Screen Negative 02/12/17 02/12/17 02/12/17 04:00 04:53 05:14 WBC RBC Hgb Hct MCV MCH MCHC RDW Plt Count MPV Neut % (Auto) Lymph % (Auto) [place] % (Auto) Eos % (Auto) Baso % (Auto) Neut # Lymph # [place] # Eos # Baso # Neutrophils % (Manual) Lymphocytes % (Manual) Monocytes % (Manual) Platelet Estimate Anisocytosis (manual) pCO2 pO2 HCO3 ABG pH ABG Total CO2 ABG O2 Saturation ABG O2 Content ABG Base Excess ABG Hemoglobin ABG Carboxyhemoglobin POC ABG HHb (Measured) ABG Methemoglobin ABG O2 Capacity [place] Test A-a O2 Difference Hgb O2 Saturation FiO2 Blood Gas Comments Crit Value Called To Crit Value Called By Crit Value Read Back Blood Gas Notified Time Sodium 143 Potassium 6.2 H* Chloride 110 H Carbon Dioxide 5 L* Anion Gap 34 H BUN 68 H Creatinine 11.1 H* Est GFR ( Amer) 4 Est GFR (Non-Af Amer) 3 POC Glucose (mg/dL) 174 H Random Glucose 177 H Calcium 10.8 H Total Bilirubin AST ALT Alkaline Phosphatase Total Creatine Kinase 88 Troponin I Total Protein Albumin Globulin Albumin/Globulin Ratio Lipase Urine Color Urine Clarity Urine pH Ur Specific [place] Urine Protein Urine Glucose (UA) Urine Ketones Urine Blood Urine Nitrate Urine Bilirubin Urine Urobilinogen Ur Leukocyte Esterase Urine RBC (Auto) Urine Microscopic WBC Ur Squamous Epith Cells Amorphous Sediment Urine Bacteria Hyaline Casts Ur Random Sodium Ur Random Potassium Urine Opiates Screen Urine Methadone Screen Ur Barbiturates Screen Ur Phencyclidine Scrn Ur Amphetamines Screen U Benzodiazepines Scrn U Oth Cocaine Metabols U Cannabinoids Screen 02/12/17 02/12/17 02/12/17 05:30 05:30 10:46 WBC 11.5 H D RBC 4.37 Hgb 12.0 Hct 39.4 MCV 90.1 D MCH 27.6 MCHC 30.6 L RDW 16.9 H Plt Count 168 MPV 11.2 Neut % (Auto) 89.6 H Lymph % (Auto) 5.1 L [place] % (Auto) 5.1 Eos % (Auto) 0.0 Baso % (Auto) 0.2 Neut # 10.3 H Lymph # 0.6 L [place] # 0.6 Eos # 0.0 Baso # 0.0 Neutrophils % (Manual) 90 H Lymphocytes % (Manual) 7 L Monocytes % (Manual) 3 Platelet Estimate Normal Anisocytosis (manual) Slight pCO2 pO2 HCO3 ABG pH ABG Total CO2 ABG O2 Saturation ABG O2 Content ABG Base Excess ABG Hemoglobin ABG Carboxyhemoglobin POC ABG HHb (Measured) ABG Methemoglobin ABG O2 Capacity [place] Test A-a O2 Difference Hgb O2 Saturation FiO2 Blood Gas Comments Crit Value Called To Crit Value Called By Crit Value Read Back Blood Gas Notified Time Sodium 150 H 147 Potassium 6.3 H* 5.9 H Chloride 112 H 107 Carbon Dioxide < 5 L* < 5 L* Anion Gap 39 H 41 H BUN 66 H 64 H Creatinine 11.1 H* 11.3 H* Est GFR ( Amer) 4 4 Est GFR (Non-Af Amer) 3 3 POC Glucose (mg/dL) Random Glucose 160 H 248 H Calcium 10.8 H 10.5 H Total Bilirubin 0.6 AST 32 ALT 12 Alkaline Phosphatase 48 Total Creatine Kinase Troponin I 0.0730 Total Protein 7.6 Albumin 4.3 Globulin 3.3 Albumin/Globulin Ratio 1.3 Lipase 764 H Urine Color Urine Clarity Urine pH Ur Specific [place] Urine Protein Urine Glucose (UA) Urine Ketones Urine Blood Urine Nitrate Urine Bilirubin Urine Urobilinogen Ur Leukocyte Esterase Urine RBC (Auto) Urine Microscopic WBC Ur Squamous Epith Cells Amorphous Sediment Urine Bacteria Hyaline Casts Ur Random Sodium Ur Random Potassium Urine Opiates Screen Urine Methadone Screen Ur Barbiturates Screen Ur Phencyclidine Scrn Ur Amphetamines Screen U Benzodiazepines Scrn U Oth Cocaine Metabols U Cannabinoids Screen 02/12/17 02/12/17 02/12/17 11:15 11:16 11:45 WBC RBC Hgb Hct MCV MCH MCHC RDW Plt Count MPV Neut % (Auto) Lymph % (Auto) [place] % (Auto) Eos % (Auto) Baso % (Auto) Neut # Lymph # [place] # Eos # Baso # Neutrophils % (Manual) Lymphocytes % (Manual) Monocytes % (Manual) Platelet Estimate Anisocytosis (manual) pCO2 pO2 HCO3 ABG pH ABG Total CO2 ABG O2 Saturation ABG O2 Content ABG Base Excess ABG Hemoglobin ABG Carboxyhemoglobin POC ABG HHb (Measured) ABG Methemoglobin ABG O2 Capacity [place] Test A-a O2 Difference Hgb O2 Saturation FiO2 Blood Gas Comments Crit Value Called To Crit Value Called By Crit Value Read Back Blood Gas Notified Time Sodium Potassium Chloride Carbon Dioxide Anion Gap BUN Creatinine Est GFR ( Amer) Est GFR (Non-Af Amer) POC Glucose (mg/dL) 274 H Random Glucose Calcium Total Bilirubin AST ALT Alkaline Phosphatase Total Creatine Kinase Troponin I Total Protein Albumin Globulin Albumin/Globulin Ratio Lipase Urine Color [place] Urine Clarity Cloudy Urine pH 5.0 Ur Specific [place] 1.019 Urine Protein >=500 Urine Glucose (UA) 50 Urine Ketones Negative Urine Blood Large Urine Nitrate Negative Urine Bilirubin Negative Urine Urobilinogen 0.2-1.0 Ur Leukocyte Esterase Large Urine RBC (Auto) 6 H Urine Microscopic WBC 17 H Ur Squamous Epith Cells < 1 Amorphous Sediment Occ H Urine Bacteria Few H Hyaline Casts 6-10 H Ur Random Sodium 42 Ur Random Potassium 20.0 Urine Opiates Screen Urine Methadone Screen Ur Barbiturates Screen Ur Phencyclidine Scrn Ur Amphetamines Screen U Benzodiazepines Scrn U Oth Cocaine Metabols U Cannabinoids Screen 02/12/17 02/12/17 11:50 13:42 WBC RBC Hgb Hct MCV MCH MCHC RDW Plt Count MPV Neut % (Auto) Lymph % (Auto) [place] % (Auto) Eos % (Auto) Baso % (Auto) Neut # Lymph # [place] # Eos # Baso # Neutrophils % (Manual) Lymphocytes % (Manual) Monocytes % (Manual) Platelet Estimate Anisocytosis (manual) pCO2 11 L* pO2 148 H HCO3 5.6 L* ABG pH 7.07 L* ABG Total CO2 3.5 L ABG O2 Saturation 99.9 H ABG O2 Content 15.6 ABG Base Excess -24.8 L ABG Hemoglobin 11.2 L ABG Carboxyhemoglobin 1.2 POC ABG HHb (Measured) 0.1 ABG Methemoglobin 1.8 ABG O2 Capacity 15.6 L Pawan Test Yes A-a O2 Difference 38.0 Hgb O2 Saturation 96.9 FiO2 28.0 Blood Gas Comments Crit Value Called To Dr sam calixto Crit Value Called By Ms Crit Value Read Back Y Blood Gas Notified Time 1155 Sodium Potassium Chloride Carbon Dioxide Anion Gap BUN Creatinine Est GFR ( Amer) Est GFR (Non-Af Amer) POC Glucose (mg/dL) 334 H Random Glucose Calcium Total Bilirubin AST ALT Alkaline Phosphatase Total Creatine Kinase Troponin I Total Protein Albumin Globulin Albumin/Globulin Ratio Lipase Urine Color Urine Clarity Urine pH Ur Specific [place] Urine Protein Urine Glucose (UA) Urine Ketones Urine Blood Urine Nitrate Urine Bilirubin Urine Urobilinogen Ur Leukocyte Esterase Urine RBC (Auto) Urine Microscopic WBC Ur Squamous Epith Cells Amorphous Sediment Urine Bacteria Hyaline Casts Ur Random Sodium Ur Random Potassium Urine Opiates Screen Urine Methadone Screen Ur Barbiturates Screen Ur Phencyclidine Scrn Ur Amphetamines Screen U Benzodiazepines Scrn U Oth Cocaine Metabols U Cannabinoids Screen EKG/Cardiology Studies: Cardiology / EKG Studies 02/12/17 09:00 ELECTROCARDIOGRAM DAILY Comment: Mode Of Transportation: PORTABLE Reason For Exam: Hyperkalemia Fingerstick Blood Sugar Results: 176 Review of Systems - Review of Systems Systems not reviewed;Unavailable: Altered Mental Status Critical Care Progress Note - Extremities/Vascular Does the Patient have a Central Venous Catheter?: Yes Does the Patient need a Central Venous Catheter?: Yes Does the Patient have a Robin Catheter?: Yes Does the Patient need a Robin Catheter?: Yes - Nutrition Nutrition: Nutrition Category Date Time Status NPO Diet [DIET] Diets 02/12/17 Breakfast Active Assessment/Plan (1) DIPAK (acute kidney injury) Current Visit: Yes Status: Acute Comment: Emergency HD IV Hydrations Bicarb drip Urine lytes Nephrology Consult appretiated (2) Metabolic acidemia Current Visit: Yes Status: Acute Comment: From renal insuffiency, check serum lactate level D5W with 2amps of Na bicarb @ 75cc/hr (3) Dementia Current Visit: Yes Status: Chronic (4) Diabetes Current Visit: Yes Status: Chronic (5) Hypertension Current Visit: Yes Status: Chronic Comment: hold antihypertensive medications for now. (6) Hyperkalemia Current Visit: Yes Status: Acute (7) DVT prophylaxis Current Visit: Yes Status: Acute Comment: SCD SQ Heparin 5,000U Q8H
[2017-02-12 15:06] LABS: ABG ALLEN TEST YES; ARTERIAL BLOOD GAS HCO3 7.5 mmol/L (21-28); ARTERIAL BLOOD GAS O2 CAPACITY 14.5 mL/dL (16-24); ARTERIAL BLOOD GAS O2 CONTENT 14.5 ML/dL (15-23); ARTERIAL BLOOD GAS PH 7.14 (7.35-7.45); ARTERIAL BLOOD GAS PO2 118 mm/Hg (80-100); ARTERIAL BLOOD HGB O2 SAT 96.9 % (95.0-98.0); CARBOXYHEMOGLOBIN 1.4 % (0.5-1.5); HHB -0.2 % (0.0-5.0); METHEMOGLOBIN 1.9 % (0.0-3.0)
--- NOTE | 2017-02-12 16:22 | RAD ---
PROCEDURE: CHEST RADIOGRAPH, 1 VIEW HISTORY: R/O pulmonary edema COMPARISON: Comparison is made to the previous study dated FINDINGS: LUNGS: Right perihilar and lower lobe small opacities are seen. PLEURA: No pneumothorax or pleural fluid seen. CARDIOVASCULAR: Normal. OSSEOUS STRUCTURES: No significant abnormalities. VISUALIZED UPPER ABDOMEN: Normal. OTHER FINDINGS: Interval insertion of right jugular central line since the previous exam. IMPRESSION: New right perihilar opacities versus pulmonary congestion seen.
[2017-02-12 16:29] LABS: VENOUS BLOOD GAS BASE EXCESS -24.3 mmol/L (0.0-2.0); VENOUS BLOOD GAS PCO2 14 mmHg (40-60); VENOUS BLOOD PH 7.06 (7.32-7.43)
[2017-02-12 16:54] LABS: ALB/GLOB RATIO 1.4 (1.0-2.1); ALKALINE PHOSPHATASE 48 U/L (38-126); ALT/SGPT 18 U/L (9-52); AST/SGOT 36 U/L (14-36); BILIRUBIN,TOTAL 0.4 mg/dl (0.2-1.3); BLOOD UREA NITROGEN 61 mg/dl (7-17); CALCIUM 9.7 mg/dL (8.4-10.2); CHLORIDE 103 mmol/L (98-107); GFR AFRICAN-AMERICAN 4; POTASSIUM 5.1 MMOL/L (3.6-5.0); SODIUM 147 mmol/l (132-148); TOTAL PROTEIN 6.6 G/DL (6.3-8.2)
[2017-02-12 17:11] LABS: CARBON DIOXIDE < 5 mmol/L (22-30); GLUCOSE,RANDOM 431 mg/dL (65-105)
[2017-02-12 19:27] LABS: CALCIUM 8.8 mg/dL (8.4-10.2); POTASSIUM 3.5 MMOL/L (3.6-5.0)
[2017-02-12 20:03] LABS: ABG ALLEN TEST YES; ARTERIAL BLOOD GAS HCO3 19.3 mmol/L (21-28); ARTERIAL BLOOD GAS O2 CAPACITY 13.6 mL/dL (16-24); ARTERIAL BLOOD GAS O2 CONTENT 13.6 ML/dL (15-23); ARTERIAL BLOOD GAS PH 7.44 (7.35-7.45); ARTERIAL BLOOD GAS PO2 93 mm/Hg (80-100); ARTERIAL BLOOD HGB O2 SAT 96.8 % (95.0-98.0); CARBOXYHEMOGLOBIN 1.3 % (0.5-1.5); METHEMOGLOBIN 1.8 % (0.0-3.0)
[2017-02-12 22:14] LABS: VENOUS BLOOD GAS BASE EXCESS -5.8 mmol/L (0.0-2.0); VENOUS BLOOD GAS PCO2 32 mmHg (40-60); VENOUS BLOOD PH 7.37 (7.32-7.43)
[2017-02-12 22:29] LABS: CALCIUM 8.7 mg/dL (8.4-10.2); POTASSIUM 3.9 MMOL/L (3.6-5.0)
[2017-02-13] MEDS: Dextrose 5%/0.45% NS 1,000 ML IV SCH ×3 (00:37→21:00)
[2017-02-13 04:53] LABS: BASO % 0.1 % (0.0-2.0); HEMATOCRIT 28.6 % (34.0-47.0); LYMPH # 1.2 K/uL (1.0-4.3); LYMPH % 12.3 % (20.0-40.0); MEAN CELL VOLUME 83.5 fl (81.0-99.0); MEAN CORPUSCULAR HEMOGLOBIN 27.6 pg (27.0-31.0); MEAN PLATELET VOLUME 9.4 fl (7.2-11.7); MONO # 0.8 K/uL (0.0-0.8); MONO % 8.8 % (0.0-10.0); NEUT # 7.5 K/uL (1.8-7.0); NEUT % 78.8 % (50.0-75.0); RED CELL DISTRIBUTION WIDTH 14.7 % (11.5-14.5); WHITE BLOOD COUNT 9.5 K/uL (4.8-10.8)
[2017-02-13 05:15] LABS: ALB/GLOB RATIO 1.2 (1.0-2.1); BILIRUBIN,TOTAL 0.3 mg/dl (0.2-1.3); POTASSIUM 3.2 MMOL/L (3.6-5.0); TOTAL PROTEIN 5.5 G/DL (6.3-8.2)
[2017-02-13] MEDS: Insulin Regular 100 units/ml SC SCH ×4 (07:47→21:53)
--- NOTE | 2017-02-13 11:00 | CP.PCM.PN ---
Subjective - Date & Time of Evaluation Date of Evaluation: 02/13/17 Time of Evaluation: 10:58 - Subjective Subjective: Patient awake consciousness tolerated very well first hemodialysis Patient not in any acute distress comfortable Vital sign noted to be stable and okay Objective - Vital Signs/Intake and Output Vital Signs (last 24 hours): Temp Pulse Resp BP Pulse Ox 98.4 F 76 12 110/52 L 98 02/13/17 08:00 02/13/17 08:00 02/13/17 08:00 02/13/17 10:11 02/13/17 08:00 Intake and Output: 02/13/17 02/13/17 06:59 18:59 Intake Total 1200 Balance 1200 - Medications Medications: Current Medications Dextrose (Dextrose 50% Inj) 0 ml IV STAT PRN; Protocol PRN Reason: Hyglycemia Protocol Dextrose (Glutose 15) 0 gm PO ONCE PRN; Protocol PRN Reason: Hypoglycemia Protocol Glucagon (Glucagen Diagnostic Kit) 0 mg IM STAT PRN; Protocol PRN Reason: Hypoglycemia Protocol Heparin Sodium (Porcine) (Heparin) 5,000 units SC Q8 FÉLIX PRN Reason: Protocol Last Admin: 02/13/17 08:06 Dose: 5,000 units Insulin Human Regular (Humulin R) 0 units SC ACHS FÉLIX PRN Reason: Protocol Last Admin: 02/13/17 07:47 Dose: 3 u - Labs Labs: 02/13/17 04:30 02/13/17 04:30 PT 11.2 Seconds (9.8-13.1) 02/11/17 20:25 INR 1.0 (0.9-1.2) 02/11/17 20:25 APTT 27.7 Seconds (25.6-37.1) 02/11/17 20:25 - Constitutional Appears: No Acute Distress - ENT Exam ENT Exam: Mucous Membranes Moist - Respiratory Exam Respiratory Exam: NORMAL BREATHING PATTERN. absent: Chest Wall Tenderness - GI/Abdominal Exam GI & Abdominal Exam: Soft, Normal Bowel Sounds - Extremities Exam Extremities Exam: absent: Calf Tenderness - Back Exam Back Exam: absent: CVA tenderness (L), CVA tenderness (R) - Neurological Exam Neurological Exam: Altered Assessment and Plan (1) Hyperkalemia Status: Acute (2) Metabolic acidemia Status: Acute (3) Dementia Status: Chronic (4) Diabetes Status: Chronic (5) Acute renal failure Assessment & Plan: Acute renal failure most likely related to multifactorial patient was severely dehydrated on diuretics and ROBINSON inhibitor. She received the first dialysis yesterday and she did very good and she was about to have dialysis right now No ultrafiltration potassium bath 3 mEq Patient also has severe metabolic acidosis which has been corrected Severe hyperkalemia has been corrected Dementia as noted in the record Diabetic control Status: Acute
--- NOTE | 2017-02-13 13:16 | CP.CCUPN ---
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 CCU Objective - Vital Signs / Intake & Output Vital Signs (Last 4 hours): Vital Signs Temp Pulse Resp BP Pulse Ox 02/13/17 12:00 98.7 F 70 11 L 96/43 L 98 02/13/17 10:11 110/52 L Intake and Output (Last 8hrs): Intake & Output 02/12/17 02/13/17 02/13/17 22:59 06:59 14:59 Intake Total 2400 800 Output Total 10 Balance 2390 800 Intake: IV 2400 800 Output: Urine 10 Urethral (Robin) 10 - Physical Exam Head: Positive for: Atraumatic, Normocephalic. Negative for: Tenderness, Contusion, Swelling, Ecchymosis Pupils: Positive for: PERRL. Negative for: Sluggish, Non-Reactive, Pinpoint Extroacular Muscles: Positive for: EOMI. Negative for: Gaze Palsy, Entrapment Conjunctiva: Positive for: Normal. Negative for: Injected, Icteric Mouth: Positive for: Dry Pharnyx: Positive for: Normal Nose (Internal): Positive for: Normal Inspection Neck: Positive for: Normal Range of Motion, Trachea Midline. Negative for: Meningeal Signs, MIDLINE TENDERNESS, Paraspinal Tenderness, JVD, Lymphadenopathy , Bruit, Other Respiratory/Chest: Positive for: Good Air Exchange, Tachypneic. Negative for: Respiratory Distress, Accessory Muscle Use, Wheezes, Decreased Breath Sounds, Rales, Retracting, Rhonchi Cardiovascular: Positive for: Regular Rate and Rhythm, Normal S1, S2, Peripheal Pulses Present. Negative for: Murmurs, Irregular Rhythm, Tachycardic, Bradycardic Abdomen: Negative for: Tenderness, Distention Upper Extremity: Positive for: Normal Inspection, NORMAL PULSES. Negative for: Edema Lower Extremity: Positive for: Normal Inspection, NORMAL PULSES. Negative for: Edema, CALF TENDERNESS Neurological: Positive for: Motor Func Grossly Intact, Normal Sensory Function Psychiatric: Positive for: Anxious, Agitated - Medications Active Medications: Active Medications Generic Name Dose Route Start Last Admin Trade Name Freq PRN Reason Stop Dose Admin Dextrose 0 ml 02/12/17 00:03 Dextrose 50% Inj IV STAT PRN Hyglycemia Protocol Protocol Dextrose 0 gm 02/12/17 00:03 Glutose 15 PO ONCE PRN Hypoglycemia Protocol Protocol Glucagon 0 mg 02/12/17 00:03 Glucagen Diagnostic Kit IM STAT PRN Hypoglycemia Protocol Protocol Heparin Sodium (Porcine) 5,000 units 02/13/17 21:00 Heparin SC Q12 FÉLIX Protocol Dextrose/Sodium Chloride 1,000 mls @ 100 mls/hr 02/13/17 12:15 Dextrose 5%/0.45% Ns 1000 Ml IV 02/14/17 12:11 .Q10H FÉLIX Insulin Human Regular 0 units 02/12/17 07:30 02/13/17 07:47 Humulin R SC 3 u ACHS FÉLIX Administration Protocol - Patient Studies Lab Studies: Microbiology Studies 02/11/17 23:10 Urine Culture - Final Urine,Robin No Growth (<1,000 CFU/ML) Lab Studies 02/13/17 02/13/17 02/13/17 Range/Units 11:20 07:44 06:21 WBC (4.8-10.8) K/uL RBC (3.80-5.20) Mil/uL Hgb (12.0-16.0) g/dL Hct (34.0-47.0) % MCV (81.0-99.0) fl MCH (27.0-31.0) pg MCHC (33.0-37.0) g/dL RDW (11.5-14.5) % Plt Count (130-400) K/uL MPV (7.2-11.7) fl Neut % (Auto) (50.0-75.0) % Lymph % (Auto) (20.0-40.0) % [place] % (Auto) (0.0-10.0) % Eos % (Auto) (0.0-4.0) % Baso % (Auto) (0.0-2.0) % Neut # (1.8-7.0) K/uL Lymph # (1.0-4.3) K/uL [place] # (0.0-0.8) K/uL Eos # (0.0-0.7) K/uL Baso # (0.0-0.2) K/uL pCO2 (35-45) mm/Hg pO2 (80-100) mm/Hg HCO3 (21-28) mmol/L ABG pH (7.35-7.45) ABG Total CO2 (22-28) mmol/L ABG O2 Saturation (95-98) % ABG O2 Content (15-23) ML/dL ABG Base Excess (-2.0-3.0) mmol/L ABG Hemoglobin (11.7-17.4) g/dL ABG Carboxyhemoglobin (0.5-1.5) % POC ABG HHb (Measured) (0.0-5.0) % ABG Methemoglobin (0.0-3.0) % ABG O2 Capacity (16-24) mL/dL Pawan Test VBG pH (7.32-7.43) VBG pCO2 (40-60) mmHg VBG HCO3 mmol/L VBG Total CO2 (22-28) mmol/L VBG O2 Sat (Calc) (40-65) % VBG Base Excess (0.0-2.0) mmol/L VBG Potassium (3.6-5.2) mmol/L A-a O2 Difference mm/Hg Hgb O2 Saturation (95.0-98.0) % Glucose (65-105) mg/dL Lactate (0.7-2.1) mmol/L FiO2 % Crit Value Called To Crit Value Called By Crit Value Read Back Blood Gas Notified Time Sodium (132-148) mmol/l Potassium (3.6-5.0) MMOL/L Chloride (98-107) mmol/L Carbon Dioxide (22-30) mmol/L Anion Gap (10-20) BUN (7-17) mg/dl Creatinine (0.7-1.2) mg/dL Est GFR ( Amer) Est GFR (Non-Af Amer) POC Glucose (mg/dL) 200 H 243 H 243 H (65-110) mg/dL Random Glucose (65-105) mg/dL Calcium (8.4-10.2) mg/dL Total Bilirubin (0.2-1.3) mg/dl AST (14-36) U/L ALT (9-52) U/L Alkaline Phosphatase (38-126) U/L Troponin I (0.00-0.120) ng/mL Total Protein (6.3-8.2) G/DL Albumin (3.5-5.0) g/dL Globulin (2.2-3.9) gm/dL Albumin/Globulin Ratio (1.0-2.1) Venous Blood Potassium (3.6-5.2) mmol/L 02/13/17 02/13/17 02/12/17 Range/Units 04:30 04:30 22:15 WBC 9.5 (4.8-10.8) K/uL RBC 3.42 L (3.80-5.20) Mil/uL Hgb 9.4 L D (12.0-16.0) g/dL Hct 28.6 L (34.0-47.0) % MCV 83.5 D (81.0-99.0) fl MCH 27.6 (27.0-31.0) pg MCHC 33.0 (33.0-37.0) g/dL RDW 14.7 H (11.5-14.5) % Plt Count 127 L D (130-400) K/uL MPV 9.4 (7.2-11.7) fl Neut % (Auto) 78.8 H (50.0-75.0) % Lymph % (Auto) 12.3 L (20.0-40.0) % [place] % (Auto) 8.8 (0.0-10.0) % Eos % (Auto) 0.0 (0.0-4.0) % Baso % (Auto) 0.1 (0.0-2.0) % Neut # 7.5 H (1.8-7.0) K/uL Lymph # 1.2 (1.0-4.3) K/uL [place] # 0.8 (0.0-0.8) K/uL Eos # 0.0 (0.0-0.7) K/uL Baso # 0.0 (0.0-0.2) K/uL pCO2 (35-45) mm/Hg pO2 (80-100) mm/Hg HCO3 (21-28) mmol/L ABG pH (7.35-7.45) ABG Total CO2 (22-28) mmol/L ABG O2 Saturation (95-98) % ABG O2 Content (15-23) ML/dL ABG Base Excess (-2.0-3.0) mmol/L ABG Hemoglobin (11.7-17.4) g/dL ABG Carboxyhemoglobin (0.5-1.5) % POC ABG HHb (Measured) (0.0-5.0) % ABG Methemoglobin (0.0-3.0) % ABG O2 Capacity (16-24) mL/dL Pawan Test VBG pH (7.32-7.43) VBG pCO2 (40-60) mmHg VBG HCO3 mmol/L VBG Total CO2 (22-28) mmol/L VBG O2 Sat (Calc) (40-65) % VBG Base Excess (0.0-2.0) mmol/L VBG Potassium (3.6-5.2) mmol/L A-a O2 Difference mm/Hg Hgb O2 Saturation (95.0-98.0) % Glucose (65-105) mg/dL Lactate (0.7-2.1) mmol/L FiO2 % Crit Value Called To Crit Value Called By Crit Value Read Back Blood Gas Notified Time Sodium 136 140 (132-148) mmol/l Potassium 3.2 L 3.9 (3.6-5.0) MMOL/L Chloride 97 L 99 (98-107) mmol/L Carbon Dioxide 24 16 L (22-30) mmol/L Anion Gap 18 29 H (10-20) BUN 38 H 34 H (7-17) mg/dl Creatinine 6.4 H 6.2 H (0.7-1.2) mg/dL Est GFR ( Amer) 7 8 Est GFR (Non-Af Amer) 6 6 POC Glucose (mg/dL) (65-110) mg/dL Random Glucose 223 H 240 H (65-105) mg/dL Calcium 8.0 L 8.7 (8.4-10.2) mg/dL Total Bilirubin 0.3 (0.2-1.3) mg/dl AST 30 (14-36) U/L ALT 20 (9-52) U/L Alkaline Phosphatase 44 (38-126) U/L Troponin I (0.00-0.120) ng/mL Total Protein 5.5 L (6.3-8.2) G/DL Albumin 2.9 L D (3.5-5.0) g/dL Globulin 2.5 (2.2-3.9) gm/dL Albumin/Globulin Ratio 1.2 (1.0-2.1) Venous Blood Potassium (3.6-5.2) mmol/L 02/12/17 02/12/17 02/12/17 Range/Units 22:03 20:00 19:55 WBC (4.8-10.8) K/uL RBC (3.80-5.20) Mil/uL Hgb (12.0-16.0) g/dL Hct (34.0-47.0) % MCV (81.0-99.0) fl MCH (27.0-31.0) pg MCHC (33.0-37.0) g/dL RDW (11.5-14.5) % Plt Count (130-400) K/uL MPV (7.2-11.7) fl Neut % (Auto) (50.0-75.0) % Lymph % (Auto) (20.0-40.0) % [place] % (Auto) (0.0-10.0) % Eos % (Auto) (0.0-4.0) % Baso % (Auto) (0.0-2.0) % Neut # (1.8-7.0) K/uL Lymph # (1.0-4.3) K/uL [place] # (0.0-0.8) K/uL Eos # (0.0-0.7) K/uL Baso # (0.0-0.2) K/uL pCO2 23 L (35-45) mm/Hg pO2 24 L 93 (80-100) mm/Hg HCO3 19.3 L (21-28) mmol/L ABG pH 7.44 (7.35-7.45) ABG Total CO2 16.3 L (22-28) mmol/L ABG O2 Saturation 100.0 H (95-98) % ABG O2 Content 13.6 L (15-23) ML/dL ABG Base Excess -7.2 L (-2.0-3.0) mmol/L ABG Hemoglobin 9.9 L (11.7-17.4) g/dL ABG Carboxyhemoglobin 1.3 (0.5-1.5) % POC ABG HHb (Measured) 0.0 (0.0-5.0) % ABG Methemoglobin 1.8 (0.0-3.0) % ABG O2 Capacity 13.6 L (16-24) mL/dL Pawan Test Yes VBG pH 7.37 (7.32-7.43) VBG pCO2 32 L (40-60) mmHg VBG HCO3 18.9 mmol/L VBG Total CO2 19.5 L (22-28) mmol/L VBG O2 Sat (Calc) 54.6 (40-65) % VBG Base Excess -5.8 L (0.0-2.0) mmol/L VBG Potassium 3.8 (3.6-5.2) mmol/L A-a O2 Difference 78.0 mm/Hg Hgb O2 Saturation 96.8 (95.0-98.0) % Glucose 268 H (65-105) mg/dL Lactate 11.6 H* (0.7-2.1) mmol/L FiO2 28.0 28.0 % Crit Value Called To Greta cisneros Crit Value Called By Ms Crit Value Read Back Y Blood Gas Notified Time 221 Sodium 137.0 (132-148) mmol/l Potassium (3.6-5.0) MMOL/L Chloride 103.0 (98-107) mmol/L Carbon Dioxide (22-30) mmol/L Anion Gap (10-20) BUN (7-17) mg/dl Creatinine (0.7-1.2) mg/dL Est GFR ( Amer) Est GFR (Non-Af Amer) POC Glucose (mg/dL) 266 H (65-110) mg/dL Random Glucose (65-105) mg/dL Calcium (8.4-10.2) mg/dL Total Bilirubin (0.2-1.3) mg/dl AST (14-36) U/L ALT (9-52) U/L Alkaline Phosphatase (38-126) U/L Troponin I (0.00-0.120) ng/mL Total Protein (6.3-8.2) G/DL Albumin (3.5-5.0) g/dL Globulin (2.2-3.9) gm/dL Albumin/Globulin Ratio (1.0-2.1) Venous Blood Potassium 3.8 (3.6-5.2) mmol/L 02/12/17 02/12/17 02/12/17 Range/Units 18:44 16:35 16:22 WBC (4.8-10.8) K/uL RBC (3.80-5.20) Mil/uL Hgb (12.0-16.0) g/dL Hct (34.0-47.0) % MCV (81.0-99.0) fl MCH (27.0-31.0) pg MCHC (33.0-37.0) g/dL RDW (11.5-14.5) % Plt Count (130-400) K/uL MPV (7.2-11.7) fl Neut % (Auto) (50.0-75.0) % Lymph % (Auto) (20.0-40.0) % [place] % (Auto) (0.0-10.0) % Eos % (Auto) (0.0-4.0) % Baso % (Auto) (0.0-2.0) % Neut # (1.8-7.0) K/uL Lymph # (1.0-4.3) K/uL [place] # (0.0-0.8) K/uL Eos # (0.0-0.7) K/uL Baso # (0.0-0.2) K/uL pCO2 (35-45) mm/Hg pO2 55 (80-100) mm/Hg HCO3 (21-28) mmol/L ABG pH (7.35-7.45) ABG Total CO2 (22-28) mmol/L ABG O2 Saturation (95-98) % ABG O2 Content (15-23) ML/dL ABG Base Excess (-2.0-3.0) mmol/L ABG Hemoglobin (11.7-17.4) g/dL ABG Carboxyhemoglobin (0.5-1.5) % POC ABG HHb (Measured) (0.0-5.0) % ABG Methemoglobin (0.0-3.0) % ABG O2 Capacity (16-24) mL/dL Pawan Test VBG pH 7.06 L* (7.32-7.43) VBG pCO2 14 L* (40-60) mmHg VBG HCO3 5.3 mmol/L VBG Total CO2 (22-28) mmol/L VBG O2 Sat (Calc) 89.3 H (40-65) % VBG Base Excess -24.3 L (0.0-2.0) mmol/L VBG Potassium (3.6-5.2) mmol/L A-a O2 Difference mm/Hg Hgb O2 Saturation (95.0-98.0) % Glucose (65-105) mg/dL Lactate (0.7-2.1) mmol/L FiO2 % Crit Value Called To Md jermain phillips Crit Value Called By Crit Value Read Back Y Blood Gas Notified Time 1625 Sodium 141 147 (132-148) mmol/l Potassium 3.5 L 5.1 H (3.6-5.0) MMOL/L Chloride 100 103 (98-107) mmol/L Carbon Dioxide 18 L < 5 L* (22-30) mmol/L Anion Gap 27 H 44 H (10-20) BUN 27 H 61 H (7-17) mg/dl Creatinine 4.6 H 11.1 H* (0.7-1.2) mg/dL Est GFR ( Amer) 11 4 Est GFR (Non-Af Amer) 9 3 POC Glucose (mg/dL) (65-110) mg/dL Random Glucose 210 H 431 H* D (65-105) mg/dL Calcium 8.8 9.7 (8.4-10.2) mg/dL Total Bilirubin 0.4 (0.2-1.3) mg/dl AST 36 (14-36) U/L ALT 18 (9-52) U/L Alkaline Phosphatase 48 (38-126) U/L Troponin I 0.0780 (0.00-0.120) ng/mL Total Protein 6.6 (6.3-8.2) G/DL Albumin 3.8 (3.5-5.0) g/dL Globulin 2.8 (2.2-3.9) gm/dL Albumin/Globulin Ratio 1.4 (1.0-2.1) Venous Blood Potassium (3.6-5.2) mmol/L 02/12/17 02/12/17 02/12/17 Range/Units 16:12 14:55 13:42 WBC (4.8-10.8) K/uL RBC (3.80-5.20) Mil/uL Hgb (12.0-16.0) g/dL Hct (34.0-47.0) % MCV (81.0-99.0) fl MCH (27.0-31.0) pg MCHC (33.0-37.0) g/dL RDW (11.5-14.5) % Plt Count (130-400) K/uL MPV (7.2-11.7) fl Neut % (Auto) (50.0-75.0) % Lymph % (Auto) (20.0-40.0) % [place] % (Auto) (0.0-10.0) % Eos % (Auto) (0.0-4.0) % Baso % (Auto) (0.0-2.0) % Neut # (1.8-7.0) K/uL Lymph # (1.0-4.3) K/uL [place] # (0.0-0.8) K/uL Eos # (0.0-0.7) K/uL Baso # (0.0-0.2) K/uL pCO2 13 L* (35-45) mm/Hg pO2 118 H (80-100) mm/Hg HCO3 7.5 L* (21-28) mmol/L ABG pH 7.14 L* (7.35-7.45) ABG Total CO2 4.8 L (22-28) mmol/L ABG O2 Saturation 100.2 H (95-98) % ABG O2 Content 14.5 L (15-23) ML/dL ABG Base Excess -22.4 L (-2.0-3.0) mmol/L ABG Hemoglobin 10.5 L (11.7-17.4) g/dL ABG Carboxyhemoglobin 1.4 (0.5-1.5) % POC ABG HHb (Measured) -0.2 L (0.0-5.0) % ABG Methemoglobin 1.9 (0.0-3.0) % ABG O2 Capacity 14.5 L (16-24) mL/dL Pawan Test Yes VBG pH (7.32-7.43) VBG pCO2 (40-60) mmHg VBG HCO3 mmol/L VBG Total CO2 (22-28) mmol/L VBG O2 Sat (Calc) (40-65) % VBG Base Excess (0.0-2.0) mmol/L VBG Potassium (3.6-5.2) mmol/L A-a O2 Difference 65.0 mm/Hg Hgb O2 Saturation 96.9 (95.0-98.0) % Glucose (65-105) mg/dL Lactate (0.7-2.1) mmol/L FiO2 28.0 % Crit Value Called To Dr jermain phillips Crit Value Called By Ms Crit Value Read Back Y Blood Gas Notified Time 1500 Sodium (132-148) mmol/l Potassium (3.6-5.0) MMOL/L Chloride (98-107) mmol/L Carbon Dioxide (22-30) mmol/L Anion Gap (10-20) BUN (7-17) mg/dl Creatinine (0.7-1.2) mg/dL Est GFR ( Amer) Est GFR (Non-Af Amer) POC Glucose (mg/dL) 462 H* 334 H (65-110) mg/dL Random Glucose (65-105) mg/dL Calcium (8.4-10.2) mg/dL Total Bilirubin (0.2-1.3) mg/dl AST (14-36) U/L ALT (9-52) U/L Alkaline Phosphatase (38-126) U/L Troponin I (0.00-0.120) ng/mL Total Protein (6.3-8.2) G/DL Albumin (3.5-5.0) g/dL Globulin (2.2-3.9) gm/dL Albumin/Globulin Ratio (1.0-2.1) Venous Blood Potassium (3.6-5.2) mmol/L Laboratory Results - last 24 hr 02/12/17 02/12/17 02/12/17 13:42 14:55 16:12 WBC RBC Hgb Hct MCV MCH MCHC RDW Plt Count MPV Neut % (Auto) Lymph % (Auto) [place] % (Auto) Eos % (Auto) Baso % (Auto) Neut # Lymph # [place] # Eos # Baso # pCO2 13 L* pO2 118 H HCO3 7.5 L* ABG pH 7.14 L* ABG Total CO2 4.8 L ABG O2 Saturation 100.2 H ABG O2 Content 14.5 L ABG Base Excess -22.4 L ABG Hemoglobin 10.5 L ABG Carboxyhemoglobin 1.4 POC ABG HHb (Measured) -0.2 L ABG Methemoglobin 1.9 ABG O2 Capacity 14.5 L Pawan Test Yes VBG pH VBG pCO2 VBG HCO3 VBG Total CO2 VBG O2 Sat (Calc) VBG Base Excess VBG Potassium A-a O2 Difference 65.0 Hgb O2 Saturation 96.9 Glucose Lactate FiO2 28.0 Crit Value Called To Dr jermain phillips Crit Value Called By Ms Crit Value Read Back Y Blood Gas Notified Time 1500 Sodium Potassium Chloride Carbon Dioxide Anion Gap BUN Creatinine Est GFR ( Amer) Est GFR (Non-Af Amer) POC Glucose (mg/dL) 334 H 462 H* Random Glucose Calcium Total Bilirubin AST ALT Alkaline Phosphatase Troponin I Total Protein Albumin Globulin Albumin/Globulin Ratio Venous Blood Potassium 02/12/17 02/12/17 02/12/17 16:22 16:35 18:44 WBC RBC Hgb Hct MCV MCH MCHC RDW Plt Count MPV Neut % (Auto) Lymph % (Auto) [place] % (Auto) Eos % (Auto) Baso % (Auto) Neut # Lymph # [place] # Eos # Baso # pCO2 pO2 55 HCO3 ABG pH ABG Total CO2 ABG O2 Saturation ABG O2 Content ABG Base Excess ABG Hemoglobin ABG Carboxyhemoglobin POC ABG HHb (Measured) ABG Methemoglobin ABG O2 Capacity Pawan Test VBG pH 7.06 L* VBG pCO2 14 L* VBG HCO3 5.3 VBG Total CO2 VBG O2 Sat (Calc) 89.3 H VBG Base Excess -24.3 L VBG Potassium A-a O2 Difference Hgb O2 Saturation Glucose Lactate FiO2 Crit Value Called To Md jermain phillips Crit Value Called By Crit Value Read Back Y Blood Gas Notified Time 1625 Sodium 147 141 Potassium 5.1 H 3.5 L Chloride 103 100 Carbon Dioxide < 5 L* 18 L Anion Gap 44 H 27 H BUN 61 H 27 H Creatinine 11.1 H* 4.6 H Est GFR ( Amer) 4 11 Est GFR (Non-Af Amer) 3 9 POC Glucose (mg/dL) Random Glucose 431 H* D 210 H Calcium 9.7 8.8 Total Bilirubin 0.4 AST 36 ALT 18 Alkaline Phosphatase 48 Troponin I 0.0780 Total Protein 6.6 Albumin 3.8 Globulin 2.8 Albumin/Globulin Ratio 1.4 Venous Blood Potassium 02/12/17 02/12/17 02/12/17 19:55 20:00 22:03 WBC RBC Hgb Hct MCV MCH MCHC RDW Plt Count MPV Neut % (Auto) Lymph % (Auto) [place] % (Auto) Eos % (Auto) Baso % (Auto) Neut # Lymph # [place] # Eos # Baso # pCO2 23 L pO2 93 24 L HCO3 19.3 L ABG pH 7.44 ABG Total CO2 16.3 L ABG O2 Saturation 100.0 H ABG O2 Content 13.6 L ABG Base Excess -7.2 L ABG Hemoglobin 9.9 L ABG Carboxyhemoglobin 1.3 POC ABG HHb (Measured) 0.0 ABG Methemoglobin 1.8 ABG O2 Capacity 13.6 L Pawan Test Yes VBG pH 7.37 VBG pCO2 32 L VBG HCO3 18.9 VBG Total CO2 19.5 L VBG O2 Sat (Calc) 54.6 VBG Base Excess -5.8 L VBG Potassium 3.8 A-a O2 Difference 78.0 Hgb O2 Saturation 96.8 Glucose 268 H Lactate 11.6 H* FiO2 28.0 28.0 Crit Value Called To Greta cisneros Crit Value Called By Ms Crit Value Read Back Y Blood Gas Notified Time 221 Sodium 137.0 Potassium Chloride 103.0 Carbon Dioxide Anion Gap BUN Creatinine Est GFR ( Amer) Est GFR (Non-Af Amer) POC Glucose (mg/dL) 266 H Random Glucose Calcium Total Bilirubin AST ALT Alkaline Phosphatase Troponin I Total Protein Albumin Globulin Albumin/Globulin Ratio Venous Blood Potassium 3.8 02/12/17 02/13/17 02/13/17 22:15 04:30 04:30 WBC 9.5 RBC 3.42 L Hgb 9.4 L D Hct 28.6 L MCV 83.5 D MCH 27.6 MCHC 33.0 RDW 14.7 H Plt Count 127 L D MPV 9.4 Neut % (Auto) 78.8 H Lymph % (Auto) 12.3 L [place] % (Auto) 8.8 Eos % (Auto) 0.0 Baso % (Auto) 0.1 Neut # 7.5 H Lymph # 1.2 [place] # 0.8 Eos # 0.0 Baso # 0.0 pCO2 pO2 HCO3 ABG pH ABG Total CO2 ABG O2 Saturation ABG O2 Content ABG Base Excess ABG Hemoglobin ABG Carboxyhemoglobin POC ABG HHb (Measured) ABG Methemoglobin ABG O2 Capacity Pawan Test VBG pH VBG pCO2 VBG HCO3 VBG Total CO2 VBG O2 Sat (Calc) VBG Base Excess VBG Potassium A-a O2 Difference Hgb O2 Saturation Glucose Lactate FiO2 Crit Value Called To Crit Value Called By Crit Value Read Back Blood Gas Notified Time Sodium 140 136 Potassium 3.9 3.2 L Chloride 99 97 L Carbon Dioxide 16 L 24 Anion Gap 29 H 18 BUN 34 H 38 H Creatinine 6.2 H 6.4 H Est GFR ( Amer) 8 7 Est GFR (Non-Af Amer) 6 6 POC Glucose (mg/dL) Random Glucose 240 H 223 H Calcium 8.7 8.0 L Total Bilirubin 0.3 AST 30 ALT 20 Alkaline Phosphatase 44 Troponin I Total Protein 5.5 L Albumin 2.9 L D Globulin 2.5 Albumin/Globulin Ratio 1.2 Venous Blood Potassium 02/13/17 02/13/17 02/13/17 06:21 07:44 11:20 WBC RBC Hgb Hct MCV MCH MCHC RDW Plt Count MPV Neut % (Auto) Lymph % (Auto) [place] % (Auto) Eos % (Auto) Baso % (Auto) Neut # Lymph # [place] # Eos # Baso # pCO2 pO2 HCO3 ABG pH ABG Total CO2 ABG O2 Saturation ABG O2 Content ABG Base Excess ABG Hemoglobin ABG Carboxyhemoglobin POC ABG HHb (Measured) ABG Methemoglobin ABG O2 Capacity Pawan Test VBG pH VBG pCO2 VBG HCO3 VBG Total CO2 VBG O2 Sat (Calc) VBG Base Excess VBG Potassium A-a O2 Difference Hgb O2 Saturation Glucose Lactate FiO2 Crit Value Called To Crit Value Called By Crit Value Read Back Blood Gas Notified Time Sodium Potassium Chloride Carbon Dioxide Anion Gap BUN Creatinine Est GFR ( Amer) Est GFR (Non-Af Amer) POC Glucose (mg/dL) 243 H 243 H 200 H Random Glucose Calcium Total Bilirubin AST ALT Alkaline Phosphatase Troponin I Total Protein Albumin Globulin Albumin/Globulin Ratio Venous Blood Potassium Fingerstick Blood Sugar Results: 243 Review of Systems - Review of Systems All systems: reviewed and no additional remarkable complaints except - Neurological Neurological: As Per HPI. absent: Disequilibrium, Dizziness, Numbness, Focal Weakness, Headaches Critical Care Progress Note - Extremities/Vascular Does the Patient have a Central Venous Catheter?: Yes (HD catheter) Insertion Site: Internal Jugular Vein Does the Patient need a Central Venous Catheter?: Yes Does the Patient have a Robin Catheter?: Yes Does the Patient need a Robin Catheter?: No (Acute renal failure) - Prophylaxis GI Prophylaxis GI: Not Indicated - Prophylaxis DVT Prophylaxis DVT: Heparin SQ - Nutrition Nutrition: Nutrition Category Date Time Status NPO Diet [DIET] Diets 02/12/17 Breakfast Active Assessment/Plan - Assessment and Plan (Free Text) Assessment: Acute Renal failure with progression from CKD AMS 2 metabolic Encephalopathy Dehydration Chronic Disease Anemia Plan: - Repeat HD today scheduled as per Nephro. - Could stop alkalinized IV fluids since serum bicarb up to 24 today. Continue hydration with NSS. Hold Lasix, doubt effectiveness and may cause hypotension. - Hold on supplementing Potassium, check repeat lytes post-HD today for any need for replacement. - Maintain normoglycemia, check HGBa1c. Careful titration of oral hypoglycemics, consider Endocrinology assistance. - Limited pancreatic views on US were normal, given lipase elevation.
--- NOTE | 2017-02-13 14:12 | VASCULAR ---
PROCEDURE: Date of procedure: 02/12/2017 Procedure: Placement of a non tunneled hemodialysis catheter, CPT 04817 Medications: 6cc 1 percent lidocaine Radiation: 1.95 MGy Fluoro time: 19 seconds Images saved: 2 HISTORY: Renal failure TECHNIQUE: Following informed consent, the patient's right neck was prepped and draped in the usual sterile fashion. Ultrasound showed a patent and compressible right internal jugular vein. After the skin was anesthetized with 1% lidocaine, the internal jugular vein was accessed under direct ultrasound guidance with micropuncture technique and a guidewire was advanced under fluoroscopic guidance into the SVC. The venotomy was then dilated to accommodate a non tunneled 15 hemodialysis catheter. An image documenting ultrasound guidance for vascular access was permanently saved. The catheter was tested and has adequate blood return for hemodialysis. The catheter was flushed and loaded with heparin per specified amounts. The catheter was secured to patient's skin. A dressing was applied. Post procedure chest x-ray showed a hemodialysis catheter at the caval atrial junction. IMPRESSION: Placement of a non tunneled 15 centimeter hemodialysis catheter via the right internal jugular vein. The tip of the catheter was confirmed with a postoperative chest x-ray and is at the cavoatrial junction. The catheter is functional ready for use.
[2017-02-13 14:19] LABS: CREATININE, RANDOM URINE 24.9 mg/dL
--- NOTE | 2017-02-13 14:31 | CP.PCM.PN ---
Subjective - Date & Time of Evaluation Date of Evaluation: 02/13/17 Time of Evaluation: 07:45 - Subjective Subjective: Patient seen and examined at bedside. Awake, is more alert today, verbally responded to a few questions, following commands, oriented to self only. Quiñones catheter less than 20mL esperanza colored urine in bag. Patient denies chest pain, when prompted responds " I am not hungry", cooperative with exam, stated "I'm cold". Drank a sip of apple juice and a spoonful of apple sauce when given to her by nurse. Objective - Vital Signs/Intake and Output Vital Signs (last 24 hours): Temp Pulse Resp BP Pulse Ox 98.7 F 70 11 L 96/43 L 98 02/13/17 12:00 02/13/17 12:00 02/13/17 12:00 02/13/17 12:00 02/13/17 12:00 Intake and Output: 02/13/17 02/13/17 06:59 18:59 Intake Total 1200 Balance 1200 - Medications Medications: Current Medications Dextrose (Dextrose 50% Inj) 0 ml IV STAT PRN; Protocol PRN Reason: Hyglycemia Protocol Dextrose (Glutose 15) 0 gm PO ONCE PRN; Protocol PRN Reason: Hypoglycemia Protocol Glucagon (Glucagen Diagnostic Kit) 0 mg IM STAT PRN; Protocol PRN Reason: Hypoglycemia Protocol Heparin Sodium (Porcine) (Heparin) 5,000 units SC Q12 FÉLIX PRN Reason: Protocol Dextrose/Sodium Chloride (Dextrose 5%/0.45% Ns 1000 Ml) 1,000 mls @ 100 mls/hr IV .Q10H FÉLIX Stop: 02/14/17 12:11 Insulin Human Regular (Humulin R) 0 units SC ACHS FÉLIX PRN Reason: Protocol Last Admin: 02/13/17 07:47 Dose: 3 u - Labs Labs: 02/13/17 04:30 02/13/17 04:30 PT 11.2 Seconds (9.8-13.1) 02/11/17 20:25 INR 1.0 (0.9-1.2) 02/11/17 20:25 APTT 27.7 Seconds (25.6-37.1) 02/11/17 20:25 - Constitutional Appears: Well, No Acute Distress - Head Exam Head Exam: ATRAUMATIC, NORMOCEPHALIC - Eye Exam Eye Exam: EOMI, PERRL - ENT Exam ENT Exam: Mucous Membranes Moist - Neck Exam Neck Exam: Full ROM. absent: Lymphadenopathy - Respiratory Exam Respiratory Exam: Clear to Ausculation Bilateral, NORMAL BREATHING PATTERN - Cardiovascular Exam Cardiovascular Exam: REGULAR RHYTHM, +S1, +S2 - GI/Abdominal Exam GI & Abdominal Exam: Soft, Normal Bowel Sounds. absent: Distended, Tenderness - Exam Additional comments: quiñones in place, less than 20cc esperanza colored urine bag - Extremities Exam Extremities Exam: absent: Calf Tenderness, Pedal Edema - Back Exam Back Exam: absent: CVA tenderness (L), CVA tenderness (R) - Neurological Exam Neurological Exam: Alert, Awake (oriented to self only) - Psychiatric Exam Psychiatric exam: Flat Affect - Skin Skin Exam: Dry, Intact, Warm Assessment and Plan - Assessment and Plan (Free Text) Assessment: 86 yr old F admitted for change in mental status, lethargy, urinary frequency, decreased PO intake and vomiting x 2 episodes, found to have acute on chronic kidney disease, metabolic acidosis, hypotension, hyperkalemia. EKG sinus rhythm with premature supraventricular complexes, otherwise wnl. CXR:no radiographic evidence of acute pulmonary disease. Patient was transferred to ICU for further management. Patient was treated with calcium gluconate, IVF, Nephrology was consulted, IR consult was called and HD catheter was placed, 1 session HD yesterday. Patient has PMHx of baseline dementia, CKD stage III-A, NIDDM, HTN and HLD. Today hyperkalemia resolved, patient ARF improved, scheduled for 2nd HD session today, mentation mildly improved with orientation only to self. Plan: 1. Acute on Chronic Kidney Injury -improving -likely secondary to dehydration and infection (UTI) -leukocytosis resoved, UA large leukocytes, afebrile -Abd xray: no nephrolithiasis -Abd US: Small hepatic hemangioma, no gallstones or ductal dilatation. - Nephrology Consult appreciated (Dr Louise): 2nd session HD scheduled for today , will follow recommendations - HOLD and minimize nephrotoxic drugs - monitor BUN/Cr, Potassium -BCx no growth x 24hrs - f/u UCx, BCx, CBC, CMP, procalcitonin 2. Delirium -acute, likely secondary to renal failure -baseline dementia -f/u Ucx, Bcx, procalcitonin -PT eval, speech and swallow eval, 3. Anemia -likely secondary to poor PO intake and chronic disease (CKD) -H/H today 9.4/28.6 -type and screen -f/u H/H 4. Diabetes -uncontrolled, chronic -HbA1c 8.1 (01/22/2017) -HOLD renally excreted medications at this time -Humulin R SC ACHS -Hypoglycemia protocol 5. Hypertension -chronic, patient currently hypotensive, -hold medications for now (home medications: Caudet 10-10= Amlodipine 10mg/ Atorvastatin 10mg PO QD and Lisinopril/HCTZ 20-25 mg PO QD) -monitor BP 6. Dementia -chronic, stable -Baseline dementia, lives by herself, ambulates without assistance at baseline, family assists with ADLs. 7. DVT prophylaxis -Heparin 5,000U, SC, Q12H -SCD's
--- NOTE | 2017-02-13 15:52 | CARD ---
APPROVED REPORT EKG Measurement Heart [id number] <Conclusion> Sinus rhythm with premature atrial complexes Nonspecific T wave abnormality Prolonged QT Abnormal ECG
[2017-02-13 17:31] LABS: CALCIUM 7.7 mg/dL (8.4-10.2)
[2017-02-13] MEDS: Potassium CL 10mEq/100ml 100 ML IVPB SCH ×3 (18:07→21:32)
[2017-02-14 04:55] LABS: HEMATOCRIT 30.6 % (34.0-47.0); MEAN CELL VOLUME 83.9 fl (81.0-99.0); MEAN CORPUSCULAR HEMOGLOBIN 27.7 pg (27.0-31.0); RED CELL DISTRIBUTION WIDTH 14.8 % (11.5-14.5)
[2017-02-14 05:08] LABS: CALCIUM 7.6 mg/dL (8.4-10.2); POTASSIUM 3.2 MMOL/L (3.6-5.0)
[2017-02-14] MEDS: Insulin Regular 100 units/ml SC SCH ×4 (06:34→21:49)
--- NOTE | 2017-02-14 06:39 | CP.PCM.PN ---
Subjective - Date & Time of Evaluation Date of Evaluation: 02/14/17 Time of Evaluation: 10:20 - Subjective Subjective: Patient seen and examined at bedside, awake, alert, in no acute distress, cooperative with physical exam. Verbally answers questions and follows few commands. When prompted reports " I am not hungry", denies chest pain or body pain". Oriented to self, place and son Paulino at bedside. Objective - Vital Signs/Intake and Output Vital Signs (last 24 hours): Temp Pulse Resp BP Pulse Ox 98.6 F 66 13 118/46 L 99 02/14/17 04:00 02/14/17 06:00 02/14/17 06:00 02/14/17 06:00 02/14/17 06:00 Intake and Output: 02/13/17 02/14/17 18:59 06:59 Intake Total 1670 1100 Output Total 225 300 Balance 1445 800 - Medications Medications: Current Medications Dextrose (Dextrose 50% Inj) 0 ml IV STAT PRN; Protocol PRN Reason: Hyglycemia Protocol Dextrose (Glutose 15) 0 gm PO ONCE PRN; Protocol PRN Reason: Hypoglycemia Protocol Glucagon (Glucagen Diagnostic Kit) 0 mg IM STAT PRN; Protocol PRN Reason: Hypoglycemia Protocol Heparin Sodium (Porcine) (Heparin) 5,000 units SC Q12 FÉLIX PRN Reason: Protocol Last Admin: 02/13/17 21:29 Dose: 5,000 units Dextrose/Sodium Chloride (Dextrose 5%/0.45% Ns 1000 Ml) 1,000 mls @ 100 mls/hr IV .Q10H FÉLIX Stop: 02/14/17 12:11 Last Admin: 02/13/17 21:00 Dose: 100 mls/hr Insulin Human Regular (Humulin R) 0 units SC ACHS FÉLIX PRN Reason: Protocol Last Admin: 02/14/17 06:34 Dose: 2 units - Labs Labs: 02/14/17 04:30 02/14/17 04:30 PT 11.2 Seconds (9.8-13.1) 02/11/17 20:25 INR 1.0 (0.9-1.2) 02/11/17 20:25 APTT 27.7 Seconds (25.6-37.1) 02/11/17 20:25 - Constitutional Appears: No Acute Distress - Head Exam Head Exam: ATRAUMATIC, NORMOCEPHALIC - Eye Exam Eye Exam: EOMI, PERRL - ENT Exam ENT Exam: Mucous Membranes Dry - Neck Exam Neck Exam: Full ROM. absent: Lymphadenopathy - Respiratory Exam Respiratory Exam: Clear to Ausculation Bilateral, NORMAL BREATHING PATTERN - Cardiovascular Exam Cardiovascular Exam: REGULAR RHYTHM, +S1, +S2 - GI/Abdominal Exam GI & Abdominal Exam: Soft, Hypoactive Bowel Sounds. absent: Distended, Tenderness - Extremities Exam Extremities Exam: Full ROM. absent: Calf Tenderness, Pedal Edema - Back Exam Back Exam: absent: CVA tenderness (L), CVA tenderness (R) - Neurological Exam Neurological Exam: Alert, Awake - Psychiatric Exam Psychiatric exam: Flat Affect, Normal Mood - Skin Skin Exam: Dry, Intact, Warm Assessment and Plan - Assessment and Plan (Free Text) Assessment: 86 yr old F admitted for change in mental status, lethargy, urinary frequency, decreased PO intake and vomiting x 2 episodes, found to have acute on chronic kidney disease, metabolic acidosis, hypotension, hyperkalemia. EKG sinus rhythm with premature supraventricular complexes, otherwise wnl. CXR:no radiographic evidence of acute pulmonary disease. Was in ICU for further management. Nephrology is on board. Patient had 1 session HD on 02/13 with significant improvement in labs and urine output of 225 mL s/p HD yesterday. Patient has PMHx of baseline dementia, CKD stage III-A, NIDDM, HTN and HLD. Hyperkalemia resolved, patient ARF improved with urine output of 300mL overnight, per nephrology recommendation, will hold off on further HD for now and monitor renal function. Mentation improved with orientation to self, place and son at bedside, decreased PO intake persists. Plan: 1. Acute on Chronic Kidney Injury -improving, BUN/Cr today 18/4.4, urine output 300mL overnight -likely secondary to dehydration and infection (UTI) -leukocytosis resoved, UA large leukocytes, afebrile -Abd xray: no nephrolithiasis -Abd US: Small hepatic hemangioma, no gallstones or ductal dilatation. - Nephrology Consult appreciated (Dr Louise): renal function improving, hold HD for today, will monitor renal function, will follow recommendations - HOLD and minimize nephrotoxic drugs - monitor BUN/Cr, Potassium -UCx no growth Bcx no growth x 48hrs, procalcitonin 0.49 -Continue IV fluids NS at 100mls/hr, KCl 10MEQ in 50mL SW (d/c after 3 bags) -will consider removing quiñones catheter -transfer to [facility], f/u BMP 2. Delirium -improving, likely secondary to renal failure -baseline dementia -UCx no growth Bcx no growth x 48hrs, procalcitonin 0.49 -PT eval 3. Anemia -likely secondary to poor PO intake and chronic disease (CKD) -H/H today 10.130.6 -type and screen -f/u H/H 4. Thrombocytopenia -plts today 92, were 197 on admission -monitor plts -f/u stool for occult blood 4. Diabetes -uncontrolled, chronic -HbA1c 8.1 (01/22/2017) -HOLD renally excreted medications at this time -Humulin R SC ACHS -Hypoglycemia protocol -Diet: Dysphagia modified 5. Hypertension -chronic, patient remains hypotensive -hold medications for now (home medications: Caudet 10-10= Amlodipine 10mg/ Atorvastatin 10mg PO QD and Lisinopril/HCTZ 20-25 mg PO QD) -monitor BP 6. Dementia -chronic, stable -Baseline dementia, lives by herself, ambulates without assistance at baseline, family assists with ADLs. 7. DVT prophylaxis -Heparin 5,000U, SC, Q12H -SCD's
[2017-02-14] MEDS: Sodium Chloride 0.9% 1,000 ML IV SCH ×2 (09:00→19:00)
--- NOTE | 2017-02-14 09:58 | CP.CCUPN ---
CCU Subjective - Physician Review Subjective (Free Text): Awake and alert, no distress, denies any weakness, SOB, +anorexic, did not eat breakfast due to "no appetite," produced 300ml urine overnight and so far U/O 200ml last 2 hours on NSS at 100ml/hr. CCU Objective - Vital Signs / Intake & Output Vital Signs (Last 4 hours): Vital Signs Temp Pulse Resp BP Pulse Ox 02/14/17 08:00 97.9 F 69 17 108/65 97 02/14/17 06:00 66 13 118/46 L 99 Intake and Output (Last 8hrs): Intake & Output 02/13/17 02/14/17 02/14/17 22:59 06:59 14:59 Intake Total 1970 800 Output Total 225 300 Balance 1745 500 Intake: IV 1700 800 Intake, Piggyback 150 Oral 120 Output: Urine 225 300 Urethral (Robin) 225 300 - Physical Exam Head: Positive for: Atraumatic, Normocephalic. Negative for: Tenderness, Contusion, Swelling, Ecchymosis Pupils: Positive for: PERRL. Negative for: Sluggish, Non-Reactive, Pinpoint Extroacular Muscles: Positive for: EOMI. Negative for: Gaze Palsy, Entrapment Conjunctiva: Positive for: Normal. Negative for: Injected, Icteric Mouth: Positive for: Dry Pharnyx: Positive for: Normal Nose (Internal): Positive for: Normal Inspection Neck: Positive for: Normal Range of Motion, Trachea Midline. Negative for: Meningeal Signs, MIDLINE TENDERNESS, Paraspinal Tenderness, JVD, Lymphadenopathy , Bruit, Other Respiratory/Chest: Positive for: Good Air Exchange, Tachypneic. Negative for: Respiratory Distress, Accessory Muscle Use, Wheezes, Decreased Breath Sounds, Rales, Retracting, Rhonchi Cardiovascular: Positive for: Regular Rate and Rhythm, Normal S1, S2, Peripheal Pulses Present. Negative for: Murmurs, Irregular Rhythm, Tachycardic, Bradycardic Abdomen: Negative for: Tenderness, Distention Upper Extremity: Positive for: Normal Inspection, NORMAL PULSES. Negative for: Edema Lower Extremity: Positive for: Normal Inspection, NORMAL PULSES. Negative for: Edema, CALF TENDERNESS Neurological: Positive for: Motor Func Grossly Intact, Normal Sensory Function Psychiatric: Positive for: Anxious, Agitated - Medications Active Medications: Active Medications Generic Name Dose Route Start Last Admin Trade Name Freq PRN Reason Stop Dose Admin Dextrose 0 ml 02/12/17 00:03 Dextrose 50% Inj IV STAT PRN Hyglycemia Protocol Protocol Dextrose 0 gm 02/12/17 00:03 Glutose 15 PO ONCE PRN Hypoglycemia Protocol Protocol Glucagon 0 mg 02/12/17 00:03 Glucagen Diagnostic Kit IM STAT PRN Hypoglycemia Protocol Protocol Heparin Sodium (Porcine) 5,000 units 02/13/17 21:00 02/14/17 08:56 Heparin SC 5,000 units Q12 FÉLIX Administration Protocol Dextrose/Sodium Chloride 1,000 mls @ 100 mls/hr 02/13/17 12:15 02/13/17 21:00 Dextrose 5%/0.45% Ns 1000 Ml IV 02/14/17 12:11 100 mls/hr .Q10H FÉLIX Administration Sodium Chloride 1,000 mls @ 100 mls/hr 02/14/17 09:00 Sodium Chloride 0.9% IV 02/15/17 08:55 .Q10H FÉLIX Potassium Chloride 50 mls @ 50 mls/hr 02/14/17 10:00 Potassium Cl 10meq/50ml Sterile Water IVPB 02/14/17 12:59 Q1 FÉLIX Insulin Human Regular 0 units 02/12/17 07:30 02/14/17 06:34 Humulin R SC 2 units ACHS FÉLIX Administration Protocol - Patient Studies Lab Studies: Microbiology Studies 02/12/17 16:22 MRSA Culture (Admit) - Final Naris MRSA NOT DETECTED 02/11/17 23:10 Urine Culture - Final Urine,Robin No Growth (<1,000 CFU/ML) Lab Studies 02/14/17 02/14/17 02/14/17 Range/Units 05:51 04:30 04:30 WBC 7.0 (4.8-10.8) K/uL RBC 3.65 L (3.80-5.20) Mil/uL Hgb 10.1 L (12.0-16.0) g/dL Hct 30.6 L (34.0-47.0) % MCV 83.9 (81.0-99.0) fl MCH 27.7 (27.0-31.0) pg MCHC 33.0 (33.0-37.0) g/dL RDW 14.8 H (11.5-14.5) % Plt Count 92 L D (130-400) K/uL Sodium 132 (132-148) mmol/l Potassium 3.2 L (3.6-5.0) MMOL/L Chloride 99 (98-107) mmol/L Carbon Dioxide 27 (22-30) mmol/L Anion Gap 9 L (10-20) BUN 18 H (7-17) mg/dl Creatinine 4.4 H (0.7-1.2) mg/dL Est GFR ( Amer) 12 Est GFR (Non-Af Amer) 10 POC Glucose (mg/dL) 195 H (65-110) mg/dL Random Glucose 168 H (65-105) mg/dL Calcium 7.6 L (8.4-10.2) mg/dL Procalcitonin (0.19-0.49) NG/ML Ur Random Creatinine mg/dL U Random Total Protein (0.0-12.0) mg/dL Hep B Core IgM Ab (NEGATIVE) 02/13/17 02/13/17 02/13/17 Range/Units 21:42 17:09 17:09 WBC (4.8-10.8) K/uL RBC (3.80-5.20) Mil/uL Hgb (12.0-16.0) g/dL Hct (34.0-47.0) % MCV (81.0-99.0) fl MCH (27.0-31.0) pg MCHC (33.0-37.0) g/dL RDW (11.5-14.5) % Plt Count (130-400) K/uL Sodium 134 (132-148) mmol/l Potassium 3.0 L (3.6-5.0) MMOL/L Chloride 98 (98-107) mmol/L Carbon Dioxide 30 (22-30) mmol/L Anion Gap 9 L (10-20) BUN 14 (7-17) mg/dl Creatinine 2.7 H (0.7-1.2) mg/dL Est GFR ( Amer) 20 Est GFR (Non-Af Amer) 17 POC Glucose (mg/dL) 199 H (65-110) mg/dL Random Glucose 99 (65-105) mg/dL Calcium 7.7 L (8.4-10.2) mg/dL Procalcitonin (0.19-0.49) NG/ML Ur Random Creatinine mg/dL U Random Total Protein (0.0-12.0) mg/dL Hep B Core IgM Ab Negative (NEGATIVE) 02/13/17 02/13/17 02/13/17 Range/Units 16:21 13:00 11:20 WBC (4.8-10.8) K/uL RBC (3.80-5.20) Mil/uL Hgb (12.0-16.0) g/dL Hct (34.0-47.0) % MCV (81.0-99.0) fl MCH (27.0-31.0) pg MCHC (33.0-37.0) g/dL RDW (11.5-14.5) % Plt Count (130-400) K/uL Sodium (132-148) mmol/l Potassium (3.6-5.0) MMOL/L Chloride (98-107) mmol/L Carbon Dioxide (22-30) mmol/L Anion Gap (10-20) BUN (7-17) mg/dl Creatinine (0.7-1.2) mg/dL Est GFR ( Amer) Est GFR (Non-Af Amer) POC Glucose (mg/dL) 140 H 200 H (65-110) mg/dL Random Glucose (65-105) mg/dL Calcium (8.4-10.2) mg/dL Procalcitonin (0.19-0.49) NG/ML Ur Random Creatinine 24.9 mg/dL U Random Total Protein 87.0 H (0.0-12.0) mg/dL Hep B Core IgM Ab (NEGATIVE) 02/13/17 Range/Units 05:00 WBC (4.8-10.8) K/uL RBC (3.80-5.20) Mil/uL Hgb (12.0-16.0) g/dL Hct (34.0-47.0) % MCV (81.0-99.0) fl MCH (27.0-31.0) pg MCHC (33.0-37.0) g/dL RDW (11.5-14.5) % Plt Count (130-400) K/uL Sodium (132-148) mmol/l Potassium (3.6-5.0) MMOL/L Chloride (98-107) mmol/L Carbon Dioxide (22-30) mmol/L Anion Gap (10-20) BUN (7-17) mg/dl Creatinine (0.7-1.2) mg/dL Est GFR ( Amer) Est GFR (Non-Af Amer) POC Glucose (mg/dL) (65-110) mg/dL Random Glucose (65-105) mg/dL Calcium (8.4-10.2) mg/dL Procalcitonin 0.49 (0.19-0.49) NG/ML Ur Random Creatinine mg/dL U Random Total Protein (0.0-12.0) mg/dL Hep B Core IgM Ab (NEGATIVE) Laboratory Results - last 24 hr 02/13/17 02/13/17 02/13/17 05:00 11:20 13:00 WBC RBC Hgb Hct MCV MCH MCHC RDW Plt Count Sodium Potassium Chloride Carbon Dioxide Anion Gap BUN Creatinine Est GFR ( Amer) Est GFR (Non-Af Amer) POC Glucose (mg/dL) 200 H Random Glucose Calcium Procalcitonin 0.49 Ur Random Creatinine 24.9 U Random Total Protein 87.0 H Hep B Core IgM Ab 02/13/17 02/13/17 02/13/17 16:21 17:09 17:09 WBC RBC Hgb Hct MCV MCH MCHC RDW Plt Count Sodium 134 Potassium 3.0 L Chloride 98 Carbon Dioxide 30 Anion Gap 9 L BUN 14 Creatinine 2.7 H Est GFR ( Amer) 20 Est GFR (Non-Af Amer) 17 POC Glucose (mg/dL) 140 H Random Glucose 99 Calcium 7.7 L Procalcitonin Ur Random Creatinine U Random Total Protein Hep B Core IgM Ab Negative 02/13/17 02/14/17 02/14/17 21:42 04:30 04:30 WBC 7.0 RBC 3.65 L Hgb 10.1 L Hct 30.6 L MCV 83.9 MCH 27.7 MCHC 33.0 RDW 14.8 H Plt Count 92 L D Sodium 132 Potassium 3.2 L Chloride 99 Carbon Dioxide 27 Anion Gap 9 L BUN 18 H Creatinine 4.4 H Est GFR ( Amer) 12 Est GFR (Non-Af Amer) 10 POC Glucose (mg/dL) 199 H Random Glucose 168 H Calcium 7.6 L Procalcitonin Ur Random Creatinine U Random Total Protein Hep B Core IgM Ab 02/14/17 05:51 WBC RBC Hgb Hct MCV MCH MCHC RDW Plt Count Sodium Potassium Chloride Carbon Dioxide Anion Gap BUN Creatinine Est GFR ( Amer) Est GFR (Non-Af Amer) POC Glucose (mg/dL) 195 H Random Glucose Calcium Procalcitonin Ur Random Creatinine U Random Total Protein Hep B Core IgM Ab Fingerstick Blood Sugar Results: 195 Review of Systems - Review of Systems All systems: reviewed and no additional remarkable complaints except - Genitourinary Genitourinary: absent: Urinary Frequency, Bladder Distension - Neurological Neurological: absent: Dizziness, Numbness, Focal Weakness, Headaches Critical Care Progress Note - Nutrition Nutrition: Nutrition Category Date Time Status Dysphagia/Modified Consistency Diet [DIET] Diets 02/13/17 Dinner Active Assessment/Plan - Assessment and Plan (Free Text) Assessment: Acute Renal failure, AMS 2 Metabolic Encephalopathy Dehydration Chronic Disease Anemia Hyperlipasemia Plan: - Repeat HD as per Nephro, but hyperkalemia has resolved and she is now hypokalemic, and producing urine, and metab acidosis has resolved. - Hold Lasix, no clinical evidence of fluid overload. - Maintain normoglycemia, check HGBa1c. Careful titration of oral hypoglycemics, consider Endocrinology assistance. - Limited pancreatic views on US study show normal pancreas, but Lipase elevations noted and may be due to non-pancreatic or other GI pathology issues, ?? due to recent Sitagliptin use?? - Stable for stepdown bed.
--- NOTE | 2017-02-14 10:36 | CP.PCM.PN ---
Subjective - Date & Time of Evaluation Date of Evaluation: 02/14/17 Time of Evaluation: 10:34 - Subjective Subjective: Patient continued to improve He feels much better Urine output improving as noted in the intake and output Physical exam Chest no rales Heart no rubs Abdomen soft Extremity no edema Lab reviewed and showed improving kidney function serum creatinine coming down Patient completed second hemodialysis yesterday And the plan to discontinue hemodialysis and to remove dialysis catheter tomorrow if the creatinine continue to come down Objective - Vital Signs/Intake and Output Vital Signs (last 24 hours): Temp Pulse Resp BP Pulse Ox 97.9 F 69 17 108/65 97 02/14/17 08:00 02/14/17 08:00 02/14/17 08:00 02/14/17 08:00 02/14/17 08:00 Intake and Output: 02/14/17 02/14/17 06:59 18:59 Intake Total 1100 Output Total 300 Balance 800 - Medications Medications: Current Medications Dextrose (Dextrose 50% Inj) 0 ml IV STAT PRN; Protocol PRN Reason: Hyglycemia Protocol Dextrose (Glutose 15) 0 gm PO ONCE PRN; Protocol PRN Reason: Hypoglycemia Protocol Glucagon (Glucagen Diagnostic Kit) 0 mg IM STAT PRN; Protocol PRN Reason: Hypoglycemia Protocol Heparin Sodium (Porcine) (Heparin) 5,000 units SC Q12 FÉLIX PRN Reason: Protocol Last Admin: 02/14/17 08:56 Dose: 5,000 units Dextrose/Sodium Chloride (Dextrose 5%/0.45% Ns 1000 Ml) 1,000 mls @ 100 mls/hr IV .Q10H FÉLIX Stop: 02/14/17 12:11 Last Admin: 02/13/17 21:00 Dose: 100 mls/hr Sodium Chloride (Sodium Chloride 0.9%) 1,000 mls @ 100 mls/hr IV .Q10H FÉLIX Stop: 02/15/17 08:55 Potassium Chloride (Potassium Cl 10meq/50ml Sterile Water) 50 mls @ 50 mls/hr IVPB Q1 FÉLIX Stop: 02/14/17 12:59 Insulin Human Regular (Humulin R) 0 units SC ACHS FÉLIX PRN Reason: Protocol Last Admin: 02/14/17 06:34 Dose: 2 units - Labs Labs: 02/14/17 04:30 02/14/17 04:30 PT 11.2 Seconds (9.8-13.1) 02/11/17 20:25 INR 1.0 (0.9-1.2) 02/11/17 20:25 APTT 27.7 Seconds (25.6-37.1) 02/11/17 20:25 Assessment and Plan (1) Hyperkalemia Status: Acute (2) Metabolic acidemia Status: Acute (3) Dementia Status: Chronic (4) Diabetes Status: Chronic (5) Acute renal failure Status: Acute
--- NOTE | 2017-02-14 11:50 | PQF GENQUE ---
Dr. Tellez, Production [employer] documented the following information with no mention of this diagnosis in your documentation. Please indicate in your next progress note and /or discharge summary your agreement with financial services education consultant or provide clarification that this diagnosis is not a current condition. Diagnosis: AMS 2 metabolic Encephalopathy Documented by: Dr. Barrera Location: Critical Care Progress Note: 02/13/2017 02/13/2017:Attending progress note dxs. include: 2. Delirium -acute, likely secondary to renal failure -baseline dementia -f/u Ucx, Bcx, procalcitonin - PT eval, speech and swallow eval, This form is a permanent part of the medical record Clarification of your documentation is requested to better reflect the severity of illness and intensity of treatment of your patient. Indicators present [] Specify: [] [] Specify: [] [] Specify: [] [] Specify: [] Location in the medical record that reflects the above clinical findings: [] Treatment Provided: [] PHYSICIAN'S RESPONSE Based on your medical judgment of the clinical indicators outlined above please clarify the following: [] Practitioner response [] If unable to determine, please check the box, sign and date. Present On Admission (POA) Indicator: [] Present at the time of admission [] Not present at the time of admission [] Clinically Undetermined In responding to this query, please exercise your independent professional judgment. The fact that a question is asked does not imply that any particular answer is desired or expected. Thank you for your clarification on this documentation. If you have any questions please call. * Thank you, Nancy Miller RN BSN ext. #[phone] MTDD
[2017-02-14] MEDS: Potassium CL 10 MEQ/50 ML 50 ML IVPB SCH ×3 (14:55→16:30)
[2017-02-14] MEDS ORDERED: Potassium Chloride 20 mEq/15 ml LIQ UD PO ONE (15:30)
[2017-02-15] MEDS: Sodium Chloride 0.9% 1,000 ML IV SCH (05:00)
[2017-02-15 05:26] LABS: HEMATOCRIT 29.8 % (34.0-47.0); MEAN CELL VOLUME 84.3 fl (81.0-99.0); MEAN CORPUSCULAR HEMOGLOBIN 27.6 pg (27.0-31.0); MEAN CORPUSCULAR HGB CONC 32.8 g/dL (33.0-37.0); RED CELL DISTRIBUTION WIDTH 14.9 % (11.5-14.5); WHITE BLOOD COUNT 6.3 K/uL (4.8-10.8)
[2017-02-15 05:32] LABS: CALCIUM 7.2 mg/dL (8.4-10.2); POTASSIUM 2.8 MMOL/L (3.6-5.0)
[2017-02-15 06:05] LABS: CARCINOEMBRYONIC ANTIGEN 4.8 ng/mL (0-3.0)
[2017-02-15] MEDS: Insulin Regular 100 units/ml SC SCH ×4 (06:53→22:09)
[2017-02-15] MEDS ORDERED: Potassium Chloride 10 mEq ER Tab PO ONE (07:45)
[2017-02-15 07:46] LABS: IRON 39 ug/dL (37-170)
[2017-02-15] MEDS: Potassium Chl 20 mEq in NS 1,000 ML IV SCH ×3 (08:53→22:29)
--- NOTE | 2017-02-15 09:12 | CP.PCM.PN ---
Subjective - Date & Time of Evaluation Date of Evaluation: 02/15/17 Time of Evaluation: 09:09 - Subjective Subjective: Patient and bed she is not in any distress appeared to be comfortable Vital sign noted to be okay No urine output recorded completely Objective - Vital Signs/Intake and Output Vital Signs (last 24 hours): Temp Pulse Resp BP Pulse Ox 98.0 F 66 8 L 129/54 L 100 02/15/17 07:37 02/15/17 07:37 02/15/17 07:37 02/15/17 07:37 02/15/17 07:37 Intake and Output: 02/15/17 02/15/17 06:59 18:59 Intake Total 1200 Output Total 1000 Balance 200 - Medications Medications: Current Medications Dextrose (Dextrose 50% Inj) 0 ml IV STAT PRN; Protocol PRN Reason: Hyglycemia Protocol Dextrose (Glutose 15) 0 gm PO ONCE PRN; Protocol PRN Reason: Hypoglycemia Protocol Glucagon (Glucagen Diagnostic Kit) 0 mg IM STAT PRN; Protocol PRN Reason: Hypoglycemia Protocol Heparin Sodium (Porcine) (Heparin) 5,000 units SC Q12 [facility] PRN Reason: Protocol Last Admin: 02/15/17 08:14 Dose: 5,000 units Potassium Chloride/Sodium Chloride (Potassium Chl 20 Meq In Ns) 1,000 mls @ 100 mls/hr IV .Q10H [facility] Last Admin: 02/15/17 08:53 Dose: 100 mls/hr Insulin Human Regular (Humulin R) 0 units SC ACHS [facility] PRN Reason: Protocol Last Admin: 02/15/17 06:53 Dose: 2 units - Labs Labs: 02/15/17 05:00 02/15/17 05:00 PT 11.2 Seconds (9.8-13.1) 02/11/17 20:25 INR 1.0 (0.9-1.2) 02/11/17 20:25 APTT 27.7 Seconds (25.6-37.1) 02/11/17 20:25 - Constitutional Appears: No Acute Distress - ENT Exam ENT Exam: Mucous Membranes Moist - Respiratory Exam Respiratory Exam: NORMAL BREATHING PATTERN. absent: Chest Wall Tenderness - Cardiovascular Exam Cardiovascular Exam: REGULAR RHYTHM. absent: Rubs - GI/Abdominal Exam GI & Abdominal Exam: Normal Bowel Sounds - Extremities Exam Extremities Exam: absent: Calf Tenderness - Back Exam Back Exam: absent: CVA tenderness (L), CVA tenderness (R) - Neurological Exam Neurological Exam: Alert Assessment and Plan (1) Hyperkalemia Status: Acute (2) Metabolic acidemia Status: Acute (3) Dementia Status: Chronic (4) Diabetes Status: Chronic (5) Acute renal failure Assessment & Plan: Acute kidney failure as we mentioned previously to multifactorial including dehydration among other things as I discussed with him my consultation. However serum creatinine going up today 5.3 and the patient is hypokalemic Patient need potassium supplement stat And possibly to continue to monitor kidney function until tomorrow she may need dialysis tomorrow. Serum PTH and phosphorus and urine spot for eosinophils ordered Status: Acute
[2017-02-15 09:14] LABS: PHOSPHOROUS 1.5 mg/dl (2.5-4.5); URIC ACID 3.4 mg/Dl (2.2-7.5)
--- NOTE | 2017-02-15 10:45 | CP.PCM.PN ---
Subjective - Date & Time of Evaluation Date of Evaluation: 02/15/17 Time of Evaluation: 08:45 - Subjective Subjective: Patient seen and examined at beside, laying in bed in no acute distress, is oriented only to self today. Verbally responds to questions " I am doing well, I am not hungry", denies pain. Patient is cooperative with physical exam. Patient refuses to eat. Quiñones in place, patient had urine output of 1L overnight. Objective - Vital Signs/Intake and Output Vital Signs (last 24 hours): Temp Pulse Resp BP Pulse Ox 98 F 64 15 141/75 99 02/15/17 08:00 02/15/17 10:00 02/15/17 10:00 02/15/17 10:00 02/15/17 10:00 Intake and Output: 02/15/17 02/15/17 06:59 18:59 Intake Total 1200 760 Output Total 1000 Balance 200 760 - Medications Medications: Current Medications Dextrose (Dextrose 50% Inj) 0 ml IV STAT PRN; Protocol PRN Reason: Hyglycemia Protocol Dextrose (Glutose 15) 0 gm PO ONCE PRN; Protocol PRN Reason: Hypoglycemia Protocol Glucagon (Glucagen Diagnostic Kit) 0 mg IM STAT PRN; Protocol PRN Reason: Hypoglycemia Protocol Heparin Sodium (Porcine) (Heparin) 5,000 units SC Q12 [facility] PRN Reason: Protocol Last Admin: 02/15/17 08:14 Dose: 5,000 units Potassium Chloride/Sodium Chloride (Potassium Chl 20 Meq In Ns) 1,000 mls @ 100 mls/hr IV .Q10H [facility] Last Admin: 02/15/17 08:53 Dose: 100 mls/hr Insulin Human Regular (Humulin R) 0 units SC ACHS [facility] PRN Reason: Protocol Last Admin: 02/15/17 06:53 Dose: 2 units - Labs Labs: 02/15/17 05:00 02/15/17 05:00 PT 11.2 Seconds (9.8-13.1) 02/11/17 20:25 INR 1.0 (0.9-1.2) 02/11/17 20:25 APTT 27.7 Seconds (25.6-37.1) 02/11/17 20:25 - Constitutional Appears: Well, No Acute Distress - Head Exam Head Exam: ATRAUMATIC, NORMOCEPHALIC - Eye Exam Eye Exam: EOMI, PERRL - ENT Exam ENT Exam: Mucous Membranes Moist - Neck Exam Neck Exam: Full ROM. absent: Lymphadenopathy - Respiratory Exam Respiratory Exam: Clear to Ausculation Bilateral, NORMAL BREATHING PATTERN - Cardiovascular Exam Cardiovascular Exam: REGULAR RHYTHM, +S1, +S2 - GI/Abdominal Exam GI & Abdominal Exam: Soft, Normal Bowel Sounds. absent: Distended, Tenderness - Extremities Exam Extremities Exam: Full ROM. absent: Pedal Edema - Back Exam Back Exam: absent: CVA tenderness (L), CVA tenderness (R) - Neurological Exam Neurological Exam: Alert, Awake, CN II-XII Intact. absent: Oriented x3 - Psychiatric Exam Psychiatric exam: Flat Affect, Normal Mood - Skin Skin Exam: Dry, Intact, Normal Color, Warm Assessment and Plan - Assessment and Plan (Free Text) Assessment: 86 yr old F admitted for change in mental status, lethargy, urinary frequency, decreased PO intake and vomiting x 2 episodes, found to have acute on chronic kidney disease, metabolic acidosis, hypotension, hyperkalemia. EKG sinus rhythm with premature supraventricular complexes, otherwise wnl. CXR:no radiographic evidence of acute pulmonary disease. Was in ICU for further management. Today transferred to med surg as patient is stable and urine output is normalizing. Nephrology is on board. Patient had 1 session HD on 02/13 with significant improvement in labs and urine output of 1L overnight last night. Patient has PMHx of baseline dementia, CKD stage III-A, NIDDM, HTN and HLD. Patient received Potassium supplementation for hypokalemia, patient ARF improved , per nephrology recommendation will monitor renal function and possibly do HD tomorrow. Mentation not at baseline yet as patient is oriented only to self. Decreased PO intake persists as patient refuses to eat. Plan: 1. Acute on Chronic Kidney Injury -stable, BUN/Cr today 23/5.1, urine output 1L overnight -likely secondary to dehydration and infection (UTI) -leukocytosis resoved, UA large leukocytes, afebrile -Abd xray: no nephrolithiasis -Abd US: Small hepatic hemangioma, no gallstones or ductal dilatation. - Nephrology Consult appreciated (Dr Louise): will monitor renal function and possibly do HD tomorrow - HOLD and minimize nephrotoxic drugs - monitor BUN/Cr, Potassium -UCx no growth Bcx no growth x 72hrs, procalcitonin 0.49 -will consider removing quiñones catheter -transfer to med surg, f/u BMP 2. Altered Mental Status secondary to Metabolic Encephalopathy -stable, mentation not at baseline, likely secondary to renal failure due to dehydration and infection -baseline dementia -UCx no growth Bcx no growth x 72hrs, procalcitonin 0.49 -PT eval 3. Anemia -likely secondary to poor PO intake and chronic disease (CKD) -H/H today 9.8/29.8 -f/u H/H 4. Thrombocytopenia -plts today 94, were 197 on admission -f/u HIT labs, discontinued Heparin -monitor plts -f/u stool for occult blood 5. Oropharyngeal/Esophageal Candidiasis -start Nystatin 5mL PO QID, Fluconazole 400mg IV 6. Diabetes -uncontrolled, chronic -HbA1c 8.1 (01/22/2017) -HOLD renally excreted medications at this time -Humulin R SC ACHS -Hypoglycemia protocol -Diet: Dysphagia modified, Suplena supplements 8oz (2 per day) 7. Hypertension -chronic, uncontrolled -resume Amlodipine 10mg PO QD -hold medications for now (Lisinopril/HCTZ 20-25 mg PO QD) -monitor BP, 8. Dementia -chronic, stable -Baseline dementia, lives by herself, ambulates without assistance at baseline, family assists with ADLs. 9. DVT prophylaxis -discontinued Heparin d/t thrombocytopenia -SCD's for now
[2017-02-15] MEDS ORDERED: Fluconazole IV 100mg/50 ml NS 50 ML IVPB SCH (11:00)
--- NOTE | 2017-02-15 11:25 | CP.CCUPN ---
CCU Subjective - Physician Review Subjective (Free Text): Awake and alert, no distress, denies any weakness, SOB, +anorexic, did not eat breakfast due to "no appetite," produced 1000ml urine overnight and on NSS at 100ml/hr. K added to IVFs. After daughter's arrival to the bedside, patient encouraged top eat and was able to tolerate taking PO KCL as well. DNR/DNI re- confirmed with family members. Urine output overnight 1000ml !! CCU Objective - Vital Signs / Intake & Output Vital Signs (Last 4 hours): Vital Signs Temp Pulse Resp BP Pulse Ox 02/15/17 10:00 64 15 141/75 99 02/15/17 08:00 98 F 66 14 129/54 L 100 02/15/17 07:37 98.0 F 66 8 L 129/54 L 100 Intake and Output (Last 8hrs): Intake & Output 02/14/17 02/15/17 02/15/17 22:59 06:59 14:59 Intake Total 400 800 760 Output Total 1000 Balance 400 -200 760 Intake: IV 400 800 400 Oral 360 Output: Urine 1000 Urethral (Robin) 1000 - Physical Exam Head: Positive for: Atraumatic, Normocephalic. Negative for: Tenderness, Contusion, Swelling, Ecchymosis Pupils: Positive for: PERRL. Negative for: Sluggish, Non-Reactive, Pinpoint Extroacular Muscles: Positive for: EOMI. Negative for: Gaze Palsy, Entrapment Conjunctiva: Positive for: Normal. Negative for: Injected, Icteric Mouth: Positive for: Dry Pharnyx: Positive for: Normal Nose (Internal): Positive for: Normal Inspection Neck: Positive for: Normal Range of Motion, Trachea Midline. Negative for: Meningeal Signs, MIDLINE TENDERNESS, Paraspinal Tenderness, JVD, Lymphadenopathy , Bruit, Other Respiratory/Chest: Positive for: Good Air Exchange, Tachypneic. Negative for: Respiratory Distress, Accessory Muscle Use, Wheezes, Decreased Breath Sounds, Rales, Retracting, Rhonchi Cardiovascular: Positive for: Regular Rate and Rhythm, Normal S1, S2, Peripheal Pulses Present. Negative for: Murmurs, Irregular Rhythm, Tachycardic, Bradycardic Abdomen: Negative for: Tenderness, Distention Upper Extremity: Positive for: Normal Inspection, NORMAL PULSES. Negative for: Edema Lower Extremity: Positive for: Normal Inspection, NORMAL PULSES. Negative for: Edema, CALF TENDERNESS Neurological: Positive for: Motor Func Grossly Intact, Normal Sensory Function Psychiatric: Positive for: Anxious, Agitated - Medications Active Medications: Active Medications Generic Name Dose Route Start Last Admin Trade Name Freq PRN Reason Stop Dose Admin Dextrose 0 ml 02/12/17 00:03 Dextrose 50% Inj IV STAT PRN Hyglycemia Protocol Protocol Dextrose 0 gm 02/12/17 00:03 Glutose 15 PO ONCE PRN Hypoglycemia Protocol Protocol Glucagon 0 mg 02/12/17 00:03 Glucagen Diagnostic Kit IM STAT PRN Hypoglycemia Protocol Protocol Potassium Chloride/Sodium Chloride 1,000 mls @ 100 mls/hr 02/15/17 07:45 08:53 Potassium Chl 20 Meq In Ns IV 100 mls/hr .Q10H [facility] Administration Fluconazole 200 mls @ 100 mls/hr 02/15/17 11:00 Diflucan Iv 400mg/200ml Ns IVPB DAILY [facility] Insulin Human Regular 0 units 02/12/17 07:30 02/15/17 11:01 Humulin R SC 2 units ACHS [facility]ÉLIX Administration Protocol Nystatin 5 ml 02/15/17 13:00 Nystatin Oral Susp PO QID FÉLIX - Patient Studies Lab Studies: Lab Studies 02/15/17 02/15/17 02/15/17 Range/Units 10:37 07:00 05:34 WBC (4.8-10.8) K/uL RBC (3.80-5.20) Mil/uL Hgb (12.0-16.0) g/dL Hct (34.0-47.0) % MCV (81.0-99.0) fl MCH (27.0-31.0) pg MCHC (33.0-37.0) g/dL RDW (11.5-14.5) % Plt Count (130-400) K/uL Sodium (132-148) mmol/l Potassium (3.6-5.0) MMOL/L Chloride (98-107) mmol/L Carbon Dioxide (22-30) mmol/L Anion Gap (10-20) BUN (7-17) mg/dl Creatinine (0.7-1.2) mg/dL Est GFR ( Amer) Est GFR (Non-Af Amer) POC Glucose (mg/dL) 156 H 160 H (65-110) mg/dL Random Glucose (65-105) mg/dL Lactic Acid (0.7-2.1) MMOL/L Uric Acid (2.2-7.5) mg/Dl Calcium (8.4-10.2) mg/dL Phosphorus (2.5-4.5) mg/dl Iron 39 (37-170) ug/dL TIBC 180 L (250-450) ug/dL % Saturation 22 (20-55) % Ferritin ng/mL Lipase (23-300) U/L Carcinoembryonic Ag (0-3.0) ng/mL Vitamin B12 (239-931) pg/mL 02/15/17 02/15/17 02/15/17 Range/Units 05:00 05:00 05:00 WBC 6.3 (4.8-10.8) K/uL RBC 3.53 L (3.80-5.20) Mil/uL Hgb 9.8 L (12.0-16.0) g/dL Hct 29.8 L (34.0-47.0) % MCV 84.3 (81.0-99.0) fl MCH 27.6 (27.0-31.0) pg MCHC 32.8 L (33.0-37.0) g/dL RDW 14.9 H (11.5-14.5) % Plt Count 94 L (130-400) K/uL Sodium 136 (132-148) mmol/l Potassium 2.8 L (3.6-5.0) MMOL/L Chloride 104 (98-107) mmol/L Carbon Dioxide 28 (22-30) mmol/L Anion Gap 7 L (10-20) BUN 21 H (7-17) mg/dl Creatinine 5.3 H (0.7-1.2) mg/dL Est GFR ( Amer) 9 Est GFR (Non-Af Amer) 8 POC Glucose (mg/dL) (65-110) mg/dL Random Glucose 128 H (65-105) mg/dL Lactic Acid 1.1 (0.7-2.1) MMOL/L Uric Acid 3.4 (2.2-7.5) mg/Dl Calcium 7.2 L (8.4-10.2) mg/dL Phosphorus 1.5 L (2.5-4.5) mg/dl Iron (37-170) ug/dL TIBC (250-450) ug/dL % Saturation (20-55) % Ferritin 168.0 ng/mL Lipase 875 H (23-300) U/L Carcinoembryonic Ag 4.8 H (0-3.0) ng/mL Vitamin B12 240 (239-931) pg/mL 02/14/17 02/14/17 Range/Units 21:28 15:38 WBC (4.8-10.8) K/uL RBC (3.80-5.20) Mil/uL Hgb (12.0-16.0) g/dL Hct (34.0-47.0) % MCV (81.0-99.0) fl MCH (27.0-31.0) pg MCHC (33.0-37.0) g/dL RDW (11.5-14.5) % Plt Count (130-400) K/uL Sodium (132-148) mmol/l Potassium (3.6-5.0) MMOL/L Chloride (98-107) mmol/L Carbon Dioxide (22-30) mmol/L Anion Gap (10-20) BUN (7-17) mg/dl Creatinine (0.7-1.2) mg/dL Est GFR ( Amer) Est GFR (Non-Af Amer) POC Glucose (mg/dL) 139 H 136 H (65-110) mg/dL Random Glucose (65-105) mg/dL Lactic Acid (0.7-2.1) MMOL/L Uric Acid (2.2-7.5) mg/Dl Calcium (8.4-10.2) mg/dL Phosphorus (2.5-4.5) mg/dl Iron (37-170) ug/dL TIBC (250-450) ug/dL % Saturation (20-55) % Ferritin ng/mL Lipase (23-300) U/L Carcinoembryonic Ag (0-3.0) ng/mL Vitamin B12 (239-931) pg/mL Laboratory Results - last 24 hr 02/14/17 02/14/17 02/15/17 15:38 21:28 05:00 WBC 6.3 RBC 3.53 L Hgb 9.8 L Hct 29.8 L MCV 84.3 MCH 27.6 MCHC 32.8 L RDW 14.9 H Plt Count 94 L Sodium Potassium Chloride Carbon Dioxide Anion Gap BUN Creatinine Est GFR ( Amer) Est GFR (Non-Af Amer) POC Glucose (mg/dL) 136 H 139 H Random Glucose Lactic Acid Uric Acid Calcium Phosphorus Iron TIBC % Saturation Ferritin Lipase Carcinoembryonic Ag Vitamin B12 02/15/17 02/15/17 02/15/17 05:00 05:00 05:34 WBC RBC Hgb Hct MCV MCH MCHC RDW Plt Count Sodium 136 Potassium 2.8 L Chloride 104 Carbon Dioxide 28 Anion Gap 7 L BUN 21 H Creatinine 5.3 H Est GFR ( Amer) 9 Est GFR (Non-Af Amer) 8 POC Glucose (mg/dL) 160 H Random Glucose 128 H Lactic Acid 1.1 Uric Acid 3.4 Calcium 7.2 L Phosphorus 1.5 L Iron TIBC % Saturation Ferritin 168.0 Lipase 875 H Carcinoembryonic Ag 4.8 H Vitamin B12 240 02/15/17 02/15/17 07:00 10:37 WBC RBC Hgb Hct MCV MCH MCHC RDW Plt Count Sodium Potassium Chloride Carbon Dioxide Anion Gap BUN Creatinine Est GFR ( Amer) Est GFR (Non-Af Amer) POC Glucose (mg/dL) 156 H Random Glucose Lactic Acid Uric Acid Calcium Phosphorus Iron 39 TIBC 180 L % Saturation 22 Ferritin Lipase Carcinoembryonic Ag Vitamin B12 Fingerstick Blood Sugar Results: 156 Review of Systems - Review of Systems All systems: reviewed and no additional remarkable complaints except - EENT Eyes: absent: Change in Vision - Cardiovascular Cardiovascular: absent: Chest Pain - Respiratory Respiratory: absent: Dyspnea - Gastrointestinal Gastrointestinal: absent: Abdominal Pain - Neurological Neurological: absent: Dizziness Critical Care Progress Note - Nutrition Nutrition: Nutrition Category Date Time Status Dysphagia/Modified Consistency Diet [DIET] Diets 02/13/17 Dinner Active Assessment/Plan - Assessment and Plan (Free Text) Assessment: Acute Renal failure, AMS 2 Metabolic Encephalopathy Dehydration Chronic Disease Anemia Hyperlipasemia Plan: Repeat HD as per Nephro, but hyperkalemia has resolved and she is now hypokalemic, and producing urine, and metab acidosis has resolved. - Hold Lasix, no clinical evidence of fluid overload. - Maintain normoglycemia, check HGBa1c. Careful titration of oral hypoglycemics, consider Endocrinology assistance. - Limited pancreatic views on US study show normal pancreas, but Lipase elevations noted and may be due to non-pancreatic or other GI pathology issues, ?? due to recent Sitagliptin use?? - Stable for regular bed.
[2017-02-15 12:36] LABS: CALCIUM 7.5 mg/dL (8.4-10.2)
[2017-02-15 12:38] LABS: POTASSIUM 3.4 MMOL/L (3.6-5.0)
[2017-02-15] MEDS ORDERED: POLYETHYLENE GLYCOL 3350 17 GM/Dose PACKET PO ONE (12:46)
[2017-02-15] MEDS: Nystatin 100,000 Units/ml Oral Susp 5 ml UD PO SCH ×3 (14:49→22:01)
[2017-02-15] MEDS: Fluconazole IV 400mg/200ml NS 200 ML IVPB SCH (15:15)
[2017-02-15 17:49] LABS: FOLATE 4.9 ng/mL
[2017-02-16] MEDS: Potassium Chl 20 mEq in NS 1,000 ML IV SCH ×4 (04:44→23:47)
[2017-02-16 05:55] LABS: HEMATOCRIT 32.1 % (34.0-47.0); MEAN CELL VOLUME 84.9 fl (81.0-99.0); MEAN CORPUSCULAR HEMOGLOBIN 27.3 pg (27.0-31.0); MEAN CORPUSCULAR HGB CONC 32.1 g/dL (33.0-37.0); WHITE BLOOD COUNT 6.6 K/uL (4.8-10.8)
[2017-02-16 06:05] LABS: BILIRUBIN,TOTAL 0.5 mg/dl (0.2-1.3); CALCIUM 7.4 mg/dL (8.4-10.2); POTASSIUM 3.3 MMOL/L (3.6-5.0); TOTAL PROTEIN 5.8 G/DL (6.3-8.2)
[2017-02-16] MEDS: Insulin Regular 100 units/ml SC SCH ×4 (06:42→22:04)
[2017-02-16] MEDS: Nystatin 100,000 Units/ml Oral Susp 5 ml UD PO SCH ×4 (08:32→22:06)
--- NOTE | 2017-02-16 10:15 | CP.PCM.PN ---
Subjective - Date & Time of Evaluation Date of Evaluation: 02/16/17 Time of Evaluation: 08:45 - Subjective Subjective: Patient seen and examined at bedside, in no acute distress, with son and daughter at bedside. No acute events overnight. Denies chest pain, SOB, weakness or dizziness. Urine output 300mL this AM. Mentation not at baseline, but has improved as patient today is AA and O x 3. Decreased PO intake persists as patient refuses to eat, is DNR/DNI. Objective - Vital Signs/Intake and Output Vital Signs (last 24 hours): Temp Pulse Resp BP Pulse Ox 98.4 F 73 22 160/75 H 95 02/16/17 08:18 02/16/17 08:18 02/16/17 08:18 02/16/17 08:18 02/16/17 08:18 - Medications Medications: Current Medications Amlodipine Besylate (Norvasc) 10 mg PO DAILY [facility] Last Admin: 02/16/17 08:32 Dose: 10 mg Dextrose (Dextrose 50% Inj) 0 ml IV STAT PRN; Protocol PRN Reason: Hyglycemia Protocol Dextrose (Glutose 15) 0 gm PO ONCE PRN; Protocol PRN Reason: Hypoglycemia Protocol Glucagon (Glucagen Diagnostic Kit) 0 mg IM STAT PRN; Protocol PRN Reason: Hypoglycemia Protocol Potassium Chloride/Sodium Chloride (Potassium Chl 20 Meq In Ns) 1,000 mls @ 100 mls/hr IV .Q10H [facility] Last Admin: 02/16/17 04:44 Dose: Not Given Fluconazole (Diflucan Iv 400mg/200ml Ns) 200 mls @ 100 mls/hr IVPB DAILY [facility] Last Admin: 02/15/17 15:15 Dose: 100 mls/hr Insulin Human Regular (Humulin R) 0 units SC ACHS FÉLIX PRN Reason: Protocol Last Admin: 02/16/17 06:42 Dose: Not Given Nystatin (Nystatin Oral Susp) 5 ml PO QID [facility] Last Admin: 02/16/17 08:32 Dose: 5 ml Potassium Chloride (K-Dur 20 Meq Er Tab) 20 meq PO ONCE ONE Stop: 02/16/17 10:14 - Labs Labs: 02/16/17 04:45 02/16/17 04:45 PT 11.2 Seconds (9.8-13.1) 02/11/17 20:25 INR 1.0 (0.9-1.2) 02/11/17 20:25 APTT 27.7 Seconds (25.6-37.1) 02/11/17 20:25 - Constitutional Appears: Well, No Acute Distress - Head Exam Head Exam: ATRAUMATIC, NORMOCEPHALIC - Eye Exam Eye Exam: EOMI, PERRL - ENT Exam ENT Exam: Mucous Membranes Moist - Neck Exam Neck Exam: Full ROM. absent: Lymphadenopathy - Respiratory Exam Respiratory Exam: Clear to Ausculation Bilateral, NORMAL BREATHING PATTERN - Cardiovascular Exam Cardiovascular Exam: REGULAR RHYTHM, +S1, +S2 - GI/Abdominal Exam GI & Abdominal Exam: Soft, Normal Bowel Sounds. absent: Tenderness - Extremities Exam Extremities Exam: Full ROM. absent: Pedal Edema - Back Exam Back Exam: absent: CVA tenderness (L), CVA tenderness (R) - Neurological Exam Neurological Exam: Alert, Awake, CN II-XII Intact - Psychiatric Exam Psychiatric exam: Normal Affect, Normal Mood - Skin Skin Exam: Dry, Intact, Normal Color, Warm Assessment and Plan - Assessment and Plan (Free Text) Assessment: 86 yr old F admitted for change in mental status, lethargy, urinary frequency, decreased PO intake and vomiting x 2 episodes, found to have acute on chronic kidney disease, metabolic acidosis, hypotension, hyperkalemia. EKG sinus rhythm with premature supraventricular complexes, otherwise wnl. CXR: no radiographic evidence of acute pulmonary disease. Patient is stable and urine output is normalizing. Nephrology is on board. Patient had 1 session HD on 02/13 with significant improvement in labs and urine output of 1L overnight last night. Patient has PMHx of baseline dementia, CKD stage III-A, NIDDM, HTN and HLD. Patient received Potassium supplementation for hypokalemia, patient ARF improved , per nephrology recommendation will monitor renal function and possibly do HD today. Mentation not at baseline, but has improved as patient today is AA and O x 3. Decreased PO intake persists as patient refuses to eat. Patients son and daughter at bedside, pt is DNR/DNI. Plan: 1. Acute on Chronic Kidney Injury -stable, BUN/Cr today 23/5.0, urine output 300L this AM -likely secondary to dehydration and infection (UTI) -leukocytosis resoved, UA large leukocytes, afebrile -Abd xray: no nephrolithiasis -Abd US: Small hepatic hemangioma, no gallstones or ductal dilatation. - Nephrology Consult appreciated (Dr Louise): will monitor renal function and possibly do HD today - HOLD and minimize nephrotoxic drugs -hypokalemia of 3.3 : gave K-dur 20 mEq tab once, Potassium Chl 20 mEq in NS - monitor BUN/Cr, Potassium -UCx no growth Bcx no growth x 72hrs, procalcitonin 0.49 -f/u BMP 2. Altered Mental Status secondary to Metabolic Encephalopathy -stable, mentation not at baseline, likely secondary to renal failure due to dehydration and infection -baseline dementia -UCx no growth Bcx no growth x 72hrs, procalcitonin 0.49 -PT eval : Recommend SubAcute Rehab upon discharge 3. Anemia -likely secondary to poor PO intake and chronic disease (CKD) -H/H today 10.3/32.1 -f/u H/H 4. Thrombocytopenia -plts today 103, were 197 on admission -f/u HIT labs, discontinued Heparin -monitor plts -f/u stool for occult blood 5. Oropharyngeal/Esophageal Candidiasis -start Nystatin 5mL PO QID, Fluconazole 400mg IV 6. Diabetes -uncontrolled, chronic -HbA1c 8.1 (01/22/2017) -HOLD renally excreted medications at this time -Humulin R SC ACHS -Hypoglycemia protocol -Diet: Dysphagia modified, Suplena supplements 8oz (2 per day) 7. Hypertension -chronic, uncontrolled -resume Amlodipine 10mg PO QD -hold medications for now (Lisinopril/HCTZ 20-25 mg PO QD) -monitor BP 8. Dementia -chronic, stable -Baseline dementia, lives by herself, ambulates without assistance at baseline, family assists with ADLs. 9. DVT prophylaxis -discontinued Heparin d/t thrombocytopenia -SCD's for now
[2017-02-16] MEDS: Fluconazole IV 400mg/200ml NS 200 ML IVPB SCH (10:29)
[2017-02-16] MEDS ORDERED: Potassium Chloride 20 mEq ER Tab PO ONE (10:50)
--- NOTE | 2017-02-16 15:26 | CP.PCM.PN ---
Subjective - Date & Time of Evaluation Date of Evaluation: 02/16/17 Time of Evaluation: 03:00 - Subjective Subjective: Appears comfortable in bed Objective - Vital Signs/Intake and Output Vital Signs (last 24 hours): Temp Pulse Resp BP Pulse Ox 98.4 F 73 22 160/75 H 95 02/16/17 08:18 02/16/17 08:18 02/16/17 08:18 02/16/17 08:18 02/16/17 08:18 - Medications Medications: Current Medications Amlodipine Besylate (Norvasc) 10 mg PO DAILY [facility] Last Admin: 02/16/17 08:32 Dose: 10 mg Dextrose (Dextrose 50% Inj) 0 ml IV STAT PRN; Protocol PRN Reason: Hyglycemia Protocol Dextrose (Glutose 15) 0 gm PO ONCE PRN; Protocol PRN Reason: Hypoglycemia Protocol Glucagon (Glucagen Diagnostic Kit) 0 mg IM STAT PRN; Protocol PRN Reason: Hypoglycemia Protocol Potassium Chloride/Sodium Chloride (Potassium Chl 20 Meq In Ns) 1,000 mls @ 100 mls/hr IV .Q10H [facility] Last Admin: 02/16/17 13:46 Dose: Not Given Fluconazole (Diflucan Iv 400mg/200ml Ns) 200 mls @ 100 mls/hr IVPB DAILY [facility] Last Admin: 02/16/17 10:29 Dose: 100 mls/hr Insulin Human Regular (Humulin R) 0 units SC ACHS [facility] PRN Reason: Protocol Last Admin: 02/16/17 12:29 Dose: 3 units Nystatin (Nystatin Oral Susp) 5 ml PO QID [facility] Last Admin: 02/16/17 12:29 Dose: 5 ml - Labs Labs: 02/16/17 04:45 02/16/17 04:45 PT 11.2 Seconds (9.8-13.1) 02/11/17 20:25 INR 1.0 (0.9-1.2) 02/11/17 20:25 APTT 27.7 Seconds (25.6-37.1) 02/11/17 20:25 - Respiratory Exam Additional comments: Lungs clear - Cardiovascular Exam Cardiovascular Exam: REGULAR RHYTHM - Extremities Exam Additional comments: No edema Assessment and Plan - Assessment and Plan (Free Text) Assessment: DIPAK No further increase in creat. since yesterday Uo 1L today since am Dehydration AMS Plan: Will hold dialysis today since Pt s UO is improving K+ supplemented Labs in am
[2017-02-17 06:12] LABS: HEMATOCRIT 31.2 % (34.0-47.0); MEAN CELL VOLUME 84.6 fl (81.0-99.0); MEAN CORPUSCULAR HEMOGLOBIN 27.6 pg (27.0-31.0); MEAN CORPUSCULAR HGB CONC 32.7 g/dL (33.0-37.0); RED CELL DISTRIBUTION WIDTH 14.7 % (11.5-14.5); WHITE BLOOD COUNT 7.2 K/uL (4.8-10.8)
[2017-02-17 06:20] LABS: CALCIUM 7.3 mg/dL (8.4-10.2); PHOSPHOROUS 1.5 mg/dl (2.5-4.5)
[2017-02-17] MEDS ORDERED: Potassium Chloride 20 mEq ER Tab PO ONE (07:19)
[2017-02-17] MEDS: Insulin Regular 100 units/ml SC SCH ×4 (08:33→21:53)
[2017-02-17] MEDS: Fluconazole IV 400mg/200ml NS 200 ML IVPB SCH (08:33)
[2017-02-17] MEDS: Nystatin 100,000 Units/ml Oral Susp 5 ml UD PO SCH ×4 (08:34→21:58)
--- NOTE | 2017-02-17 08:45 | CP.PCM.PN ---
Subjective - Date & Time of Evaluation Date of Evaluation: 02/17/17 Time of Evaluation: 08:45 - Subjective Subjective: Patient seen and examined at bedside, in no acute distress. No acute events overnight. Denies acute complaints of chest pain, SOB,abdominal pain, nausea/ vomiting, weakness or dizziness.Patient currently only oriented to person. Notes continued decreased PO intake, patient this morning states will try to eat breakfast. Patient ate food that daughter brought in for her yesterday. Objective - Vital Signs/Intake and Output Vital Signs (last 24 hours): Temp Pulse Resp BP Pulse Ox 98.5 F 61 18 157/71 H 97 02/17/17 08:21 02/17/17 08:34 02/17/17 08:21 02/17/17 08:34 02/17/17 08:21 Intake and Output: 02/17/17 02/17/17 06:59 18:59 Intake Total 1650 Output Total 1400 Balance 250 - Medications Medications: Current Medications Amlodipine Besylate (Norvasc) 10 mg PO DAILY [facility] Last Admin: 02/17/17 08:34 Dose: 10 mg Dextrose (Dextrose 50% Inj) 0 ml IV STAT PRN; Protocol PRN Reason: Hyglycemia Protocol Dextrose (Glutose 15) 0 gm PO ONCE PRN; Protocol PRN Reason: Hypoglycemia Protocol Glucagon (Glucagen Diagnostic Kit) 0 mg IM STAT PRN; Protocol PRN Reason: Hypoglycemia Protocol Potassium Chloride/Sodium Chloride (Potassium Chl 20 Meq In Ns) 1,000 mls @ 100 mls/hr IV .Q10H [facility] Last Admin: 02/16/17 23:47 Dose: 100 mls/hr Fluconazole (Diflucan Iv 400mg/200ml Ns) 200 mls @ 100 mls/hr IVPB DAILY [facility] Last Admin: 02/17/17 08:33 Dose: 100 mls/hr Insulin Human Regular (Humulin R) 0 units SC ACHS [facility] PRN Reason: Protocol Last Admin: 02/17/17 08:33 Dose: Not Given Nystatin (Nystatin Oral Susp) 5 ml PO QID [facility] Last Admin: 02/17/17 08:34 Dose: 5 ml - Labs Labs: 02/17/17 05:50 02/17/17 04:00 PT 11.2 Seconds (9.8-13.1) 02/11/17 20:25 INR 1.0 (0.9-1.2) 02/11/17 20:25 APTT 27.7 Seconds (25.6-37.1) 02/11/17 20:25 - Constitutional Appears: No Acute Distress - Head Exam Head Exam: ATRAUMATIC - Eye Exam Eye Exam: Normal appearance - ENT Exam ENT Exam: Mucous Membranes Dry - Neck Exam Neck Exam: Full ROM - Respiratory Exam Respiratory Exam: Clear to Ausculation Bilateral, NORMAL BREATHING PATTERN - Cardiovascular Exam Cardiovascular Exam: REGULAR RHYTHM, +S1, +S2 - GI/Abdominal Exam GI & Abdominal Exam: Soft, Normal Bowel Sounds - Extremities Exam Extremities Exam: Normal Inspection. absent: Full ROM, Pedal Edema - Back Exam Back Exam: NORMAL INSPECTION. absent: CVA tenderness (L), CVA tenderness (R) - Neurological Exam Neurological Exam: Altered - Psychiatric Exam Psychiatric exam: Normal Affect, Normal Mood - Skin Skin Exam: Dry, Normal Color, Warm Assessment and Plan - Assessment and Plan (Free Text) Assessment: 86 yr old F admitted for change in mental status, lethargy, urinary frequency, decreased PO intake and vomiting x 2 episodes, found to have acute on chronic kidney disease, metabolic acidosis, hypotension, hyperkalemia. 1. Acute on Chronic Kidney Injury -stable, BUN/Cr today 17/3.9 (improved) -likely secondary to dehydration and infection (UTI) -leukocytosis resoved, UA large leukocytes, afebrile -Abd xray: no nephrolithiasis -Abd US: Small hepatic hemangioma, no gallstones or ductal dilatation. - Nephrology Consult appreciated (Dr Louise): will monitor renal function and possibly do HD today - HOLD and minimize nephrotoxic drugs -hypokalemia of 3.3 : gave K-dur 20 mEq tab once, Potassium Chl 20 mEq in NS - monitor BUN/Cr, Potassium -UCx no growth Bcx no growth x 72hrs, procalcitonin 0.49 -magnesium 1.0, will discuss with nephrology for supplementation, repeat order pending. -patient not for HD today as Bun/Cr is improving. 2. Altered Mental Status secondary to Metabolic Encephalopathy -stable, mentation not at baseline, likely secondary to renal failure due to dehydration and infection -baseline dementia -UCx no growth Bcx no growth x 72hrs, procalcitonin 0.49 -PT eval : Recommend SubAcute Rehab upon discharge 3. Anemia -likely secondary to poor PO intake and chronic disease (CKD) -H/H today 10.3/32.1 -f/u H/H 4. Thrombocytopenia -plts today 103, were 197 on admission -f/u HIT labs, discontinued Heparin -monitor plts -f/u stool for occult blood 5. Oropharyngeal/Esophageal Candidiasis -start Nystatin 5mL PO QID, Fluconazole 400mg IV 6. Diabetes -uncontrolled, chronic -HbA1c 8.1 (01/22/2017) -HOLD renally excreted medications at this time -Humulin R SC ACHS -Hypoglycemia protocol -Diet: Dysphagia modified, Suplena supplements 8oz (2 per day) 7. Hypertension -chronic, uncontrolled -resume Amlodipine 10mg PO QD -hold medications for now (Lisinopril/HCTZ 20-25 mg PO QD) -monitor BP 8. Dementia -chronic, stable -Baseline dementia, lives by herself, ambulates without assistance at baseline, family assists with ADLs. 9. DVT prophylaxis -discontinued Heparin d/t thrombocytopenia -SCD's for now
[2017-02-17 10:04] LABS: TOTAL PROTEIN, SERUM 5.3 g/dL (6.1-8.1)
[2017-02-17] MEDS: Potassium Chl 20 mEq in NS 1,000 ML IV SCH ×2 (10:45→15:49)
--- NOTE | 2017-02-17 15:45 | CP.PCM.PN ---
Subjective - Date & Time of Evaluation Date of Evaluation: 02/17/17 Time of Evaluation: 03:30 - Subjective Subjective: Alert Appears weak Not eating Objective - Vital Signs/Intake and Output Vital Signs (last 24 hours): Temp Pulse Resp BP Pulse Ox 98.5 F 61 18 157/71 H 97 02/17/17 08:21 02/17/17 08:34 02/17/17 08:21 02/17/17 08:34 02/17/17 08:21 Intake and Output: 02/17/17 02/17/17 06:59 18:59 Intake Total 1650 Output Total 1400 Balance 250 - Medications Medications: Current Medications Amlodipine Besylate (Norvasc) 10 mg PO DAILY [facility] Last Admin: 02/17/17 08:34 Dose: 10 mg Dextrose (Dextrose 50% Inj) 0 ml IV STAT PRN; Protocol PRN Reason: Hyglycemia Protocol Dextrose (Glutose 15) 0 gm PO ONCE PRN; Protocol PRN Reason: Hypoglycemia Protocol Glucagon (Glucagen Diagnostic Kit) 0 mg IM STAT PRN; Protocol PRN Reason: Hypoglycemia Protocol Fluconazole (Diflucan Iv 400mg/200ml Ns) 200 mls @ 100 mls/hr IVPB DAILY [facility] Last Admin: 02/17/17 08:33 Dose: 100 mls/hr Potassium Chloride/Sodium Chloride (Potassium Chl 20 Meq In Ns) 1,000 mls @ 100 mls/hr IV .Q10H [facility] Insulin Human Regular (Humulin R) 0 units SC ACHS [facility] PRN Reason: Protocol Last Admin: 02/17/17 12:16 Dose: 2 units Magnesium Oxide (Mag-Ox) 400 mg PO ONCE ONE Stop: 02/17/17 16:01 Nystatin (Nystatin Oral Susp) 5 ml PO QID [facility] Last Admin: 02/17/17 12:16 Dose: 5 ml Ondansetron HCl (Zofran Inj) 4 mg IVP Q6 PRN PRN Reason: Nausea/Vomiting - Labs Labs: 02/17/17 05:50 02/17/17 04:00 PT 11.2 Seconds (9.8-13.1) 02/11/17 20:25 INR 1.0 (0.9-1.2) 02/11/17 20:25 APTT 27.7 Seconds (25.6-37.1) 02/11/17 20:25 - Respiratory Exam Additional comments: Lungs clear - Cardiovascular Exam Cardiovascular Exam: REGULAR RHYTHM - GI/Abdominal Exam GI & Abdominal Exam: Soft Additional comments: No tenderness - Extremities Exam Additional comments: No edema Assessment and Plan - Assessment and Plan (Free Text) Assessment: DIPAK is improving Hypokalemia, Hypomagnesemia Hypophosphatemia Plan: Creat, is improving Continue to supplement & monitor K+ & Mg++
[2017-02-17] MEDS ORDERED: Magnesium Oxide 400 mg Tab UD PO ONE (16:00)
[2017-02-17] MEDS: Magnesium Oxide 400 mg Tab UD PO SCH (16:36)
[2017-02-18] MEDS: Potassium Chl 20 mEq in NS 1,000 ML IV SCH ×3 (01:03→23:38)
[2017-02-18] MEDS: Insulin Regular 100 units/ml SC SCH ×4 (07:44→23:22)
[2017-02-18 08:12] LABS: CALCIUM 6.6 mg/dL (8.4-10.2); POTASSIUM 2.6 MMOL/L (3.6-5.0)
[2017-02-18] MEDS: Fluconazole IV 400mg/200ml NS 200 ML IVPB SCH (09:08)
[2017-02-18] MEDS: Magnesium Oxide 400 mg Tab UD PO SCH ×2 (09:08→16:36)
[2017-02-18] MEDS: Nystatin 100,000 Units/ml Oral Susp 5 ml UD PO SCH ×4 (09:09→23:21)
[2017-02-18] MEDS ORDERED: Potassium Chloride 20 mEq ER Tab PO ONE (10:24)
--- NOTE | 2017-02-18 11:05 | CP.PCM.PN ---
Subjective - Date & Time of Evaluation Date of Evaluation: 02/18/17 Time of Evaluation: 07:55 - Subjective Subjective: Patient seen and examined at bedside, awake and alert, oriented to person and place, no acute events overnight. Denies chest pain, SOB, weakness or dizziness. Has no concerns or complaints at this time. Objective - Vital Signs/Intake and Output Vital Signs (last 24 hours): Temp Pulse Resp BP Pulse Ox 98.3 F 68 18 153/75 H 97 02/18/17 07:34 02/18/17 09:08 02/18/17 07:34 02/18/17 09:08 02/18/17 07:34 - Medications Medications: Current Medications Amlodipine Besylate (Norvasc) 10 mg PO DAILY [facility] Last Admin: 02/18/17 09:08 Dose: 10 mg Dextrose (Dextrose 50% Inj) 0 ml IV STAT PRN; Protocol PRN Reason: Hyglycemia Protocol Dextrose (Glutose 15) 0 gm PO ONCE PRN; Protocol PRN Reason: Hypoglycemia Protocol Glucagon (Glucagen Diagnostic Kit) 0 mg IM STAT PRN; Protocol PRN Reason: Hypoglycemia Protocol Fluconazole (Diflucan Iv 400mg/200ml Ns) 200 mls @ 100 mls/hr IVPB DAILY [facility] Last Admin: 02/18/17 09:08 Dose: 100 mls/hr Potassium Chloride/Sodium Chloride (Potassium Chl 20 Meq In Ns) 1,000 mls @ 100 mls/hr IV .Q10H [facility] Last Admin: 02/18/17 01:03 Dose: 100 mls/hr Insulin Human Regular (Humulin R) 0 units SC ACHS [facility] PRN Reason: Protocol Last Admin: 02/18/17 07:44 Dose: Not Given Magnesium Oxide (Mag-Ox) 400 mg PO BID [facility] Stop: 02/19/17 06:00 Last Admin: 02/18/17 09:08 Dose: 400 mg Nystatin (Nystatin Oral Susp) 5 ml PO QID [facility] Last Admin: 02/18/17 09:09 Dose: 5 ml Ondansetron HCl (Zofran Inj) 4 mg IVP Q6 PRN PRN Reason: Nausea/Vomiting - Labs Labs: 02/17/17 05:50 02/18/17 06:49 PT 11.2 Seconds (9.8-13.1) 02/11/17 20:25 INR 1.0 (0.9-1.2) 02/11/17 20:25 APTT 27.7 Seconds (25.6-37.1) 02/11/17 20:25 - Constitutional Appears: Well, Non-toxic, No Acute Distress - Head Exam Head Exam: ATRAUMATIC, NORMOCEPHALIC - Eye Exam Eye Exam: EOMI, PERRL - ENT Exam ENT Exam: Mucous Membranes Moist - Neck Exam Neck Exam: Full ROM. absent: Lymphadenopathy - Respiratory Exam Respiratory Exam: Clear to Ausculation Bilateral, NORMAL BREATHING PATTERN - GI/Abdominal Exam GI & Abdominal Exam: Soft, Normal Bowel Sounds. absent: Tenderness - Extremities Exam Extremities Exam: Full ROM. absent: Calf Tenderness, Tenderness - Back Exam Back Exam: absent: CVA tenderness (L), CVA tenderness (R) - Neurological Exam Neurological Exam: Alert, Awake, CN II-XII Intact - Psychiatric Exam Psychiatric exam: Normal Affect, Normal Mood - Skin Skin Exam: Dry, Intact, Warm Assessment and Plan - Assessment and Plan (Free Text) Assessment: 86 yr old F admitted for change in mental status, lethargy, urinary frequency, decreased PO intake and vomiting x 2 episodes, found to have acute on chronic kidney disease, metabolic acidosis, hypotension, hyperkalemia. Patients renal function is improving. 1. Acute on Chronic Kidney Injury -stable, BUN/Cr today 13/2.7, improving, no HD for now -likely secondary to dehydration and infection (UTI) -leukocytosis resoved, UA large leukocytes, afebrile -Abd xray: no nephrolithiasis -Abd US: Small hepatic hemangioma, no gallstones or ductal dilatation. -Nephrology Consult appreciated (Dr Louise): will follow recommendations -HOLD and minimize nephrotoxic drugs -hypokalemia of 2.6 : K-dur 20 mEq tab QD, KCl 10 mEq in 100mL NS x 2 doses - monitor BUN/Cr, Potassium -UCx no growth Bcx no growth x 5days, procalcitonin 0.49 -magnesium 0.9, Mag 400mg PO BID 2. Altered Mental Status secondary to Metabolic Encephalopathy -stable, mentation improved, likely secondary to renal failure due to dehydration and infection -baseline dementia -UCx no growth Bcx no growth x 5 days, procalcitonin 0.49 -PT eval : Recommend SubAcute Rehab upon discharge 3. Anemia -stable, chronic, H/H 10.2/31.2 (02/17) -likely secondary to poor PO intake and chronic disease (CKD) -dietitian consult placed, calorie count ordered 4. Thrombocytopenia -improving, plts 113 on 02/17; were 197 on admission -stool for occult blood negative -f/u HIT labs, discontinued Heparin -monitor plts 5. Oropharyngeal/Esophageal Candidiasis -continue Nystatin 5mL PO QID, Fluconazole 400mg IV (on day 4) 6. Diabetes -uncontrolled, chronic -HbA1c 8.1 (01/22/2017) -HOLD renally excreted medications at this time -Humulin R SC ACHS -Hypoglycemia protocol -Diet: Dysphagia modified, Suplena supplements 8oz (2 per day) 7. Hypertension -chronic, uncontrolled -continue Amlodipine 10mg PO QD -hold medications for now (Lisinopril/HCTZ 20-25 mg PO QD) -monitor BP 8. Dementia -chronic, stable -Baseline dementia, lives by herself, ambulates without assistance at baseline, family assists with ADLs. 9. DVT prophylaxis -discontinued Heparin d/t thrombocytopenia -SCD's for now
--- NOTE | 2017-02-18 11:09 | CP.PCM.PN ---
Subjective - Date & Time of Evaluation Date of Evaluation: 02/18/17 Time of Evaluation: 11:07 - Subjective Subjective: Patient appears to be improving she is feeling much better No new events reported Objective - Vital Signs/Intake and Output Vital Signs (last 24 hours): Temp Pulse Resp BP Pulse Ox 98.3 F 68 18 153/75 H 97 02/18/17 07:34 02/18/17 09:08 02/18/17 07:34 02/18/17 09:08 02/18/17 07:34 - Medications Medications: Current Medications Amlodipine Besylate (Norvasc) 10 mg PO DAILY [facility] Last Admin: 02/18/17 09:08 Dose: 10 mg Dextrose (Dextrose 50% Inj) 0 ml IV STAT PRN; Protocol PRN Reason: Hyglycemia Protocol Dextrose (Glutose 15) 0 gm PO ONCE PRN; Protocol PRN Reason: Hypoglycemia Protocol Glucagon (Glucagen Diagnostic Kit) 0 mg IM STAT PRN; Protocol PRN Reason: Hypoglycemia Protocol Fluconazole (Diflucan Iv 400mg/200ml Ns) 200 mls @ 100 mls/hr IVPB DAILY [facility] Last Admin: 02/18/17 09:08 Dose: 100 mls/hr Potassium Chloride/Sodium Chloride (Potassium Chl 20 Meq In Ns) 1,000 mls @ 100 mls/hr IV .Q10H [facility] Last Admin: 02/18/17 01:03 Dose: 100 mls/hr Insulin Human Regular (Humulin R) 0 units SC ACHS [facility] PRN Reason: Protocol Last Admin: 02/18/17 07:44 Dose: Not Given Magnesium Oxide (Mag-Ox) 400 mg PO BID [facility] Stop: 02/19/17 06:00 Last Admin: 02/18/17 09:08 Dose: 400 mg Nystatin (Nystatin Oral Susp) 5 ml PO QID [facility] Last Admin: 02/18/17 09:09 Dose: 5 ml Ondansetron HCl (Zofran Inj) 4 mg IVP Q6 PRN PRN Reason: Nausea/Vomiting - Labs Labs: 02/17/17 05:50 02/18/17 06:49 PT 11.2 Seconds (9.8-13.1) 02/11/17 20:25 INR 1.0 (0.9-1.2) 02/11/17 20:25 APTT 27.7 Seconds (25.6-37.1) 02/11/17 20:25 - Constitutional Appears: No Acute Distress - ENT Exam ENT Exam: Mucous Membranes Moist - Respiratory Exam Respiratory Exam: NORMAL BREATHING PATTERN. absent: Chest Wall Tenderness - Cardiovascular Exam Cardiovascular Exam: REGULAR RHYTHM. absent: Rubs - GI/Abdominal Exam GI & Abdominal Exam: Normal Bowel Sounds - Extremities Exam Extremities Exam: absent: Calf Tenderness - Back Exam Back Exam: absent: CVA tenderness (L), CVA tenderness (R) - Neurological Exam Neurological Exam: Alert Assessment and Plan (1) Hyperkalemia Status: Acute (2) Metabolic acidemia Status: Acute (3) Dementia Status: Chronic (4) Diabetes Status: Chronic (5) Acute renal failure Assessment & Plan: Patient is recovering from acute renal failure serum creatinine coming down slowly without dialysis Hypokalemia patient to be given potassium chloride supplement. Continue monitoring Status: Acute
[2017-02-18] MEDS: Potassium CL 10mEq/100ml 100 ML IVPB SCH ×2 (16:35→20:48)
[2017-02-18 23:20] LABS: HEPARIN-IND PLATELET AB Negative (Negative); RESULT Negative (Negative)
[2017-02-19] MEDS: Potassium Chl 20 mEq in NS 1,000 ML IV SCH (07:25)
[2017-02-19 07:39] VITALS: BP 151/76; PULSE 75; RESP 18; TEMP 98.1; O2SAT 99
--- NOTE | 2017-02-19 08:14 | CP.PCM.PN ---
Subjective - Date & Time of Evaluation Date of Evaluation: 02/19/17 Time of Evaluation: 08:00 - Subjective Subjective: Patient seen and examined at bedside, in no acute distress, AA and oriented x3. No acute events overnight. Reports feeling well. Denies chest pain, SOB, weakness or dizziness. No concerns or complaints at this time. Objective - Vital Signs/Intake and Output Vital Signs (last 24 hours): Temp Pulse Resp BP Pulse Ox 98.1 F 75 18 151/76 H 99 02/19/17 07:38 02/19/17 07:38 02/19/17 07:38 02/19/17 07:38 02/19/17 07:38 Intake and Output: 02/19/17 02/19/17 06:59 18:59 Intake Total 1400 Balance 1400 - Medications Medications: Current Medications Amlodipine Besylate (Norvasc) 10 mg PO DAILY [facility] Last Admin: 02/18/17 09:08 Dose: 10 mg Dextrose (Dextrose 50% Inj) 0 ml IV STAT PRN; Protocol PRN Reason: Hyglycemia Protocol Dextrose (Glutose 15) 0 gm PO ONCE PRN; Protocol PRN Reason: Hypoglycemia Protocol Glucagon (Glucagen Diagnostic Kit) 0 mg IM STAT PRN; Protocol PRN Reason: Hypoglycemia Protocol Fluconazole (Diflucan Iv 400mg/200ml Ns) 200 mls @ 100 mls/hr IVPB DAILY [facility] Last Admin: 02/18/17 09:08 Dose: 100 mls/hr Potassium Chloride/Sodium Chloride (Potassium Chl 20 Meq In Ns) 1,000 mls @ 100 mls/hr IV .Q10H [facility] Last Admin: 02/19/17 07:25 Dose: Not Given Insulin Human Regular (Humulin R) 0 units SC ACHS [facility] PRN Reason: Protocol Last Admin: 02/18/17 23:22 Dose: Not Given Nystatin (Nystatin Oral Susp) 5 ml PO QID [facility] Last Admin: 02/18/17 23:21 Dose: 5 ml Ondansetron HCl (Zofran Inj) 4 mg IVP Q6 PRN PRN Reason: Nausea/Vomiting Potassium Chloride (K-Dur 20 Meq Er Tab) 20 meq PO DAILY [facility] - Labs Labs: 02/17/17 05:50 02/18/17 06:49 PT 11.2 Seconds (9.8-13.1) 02/11/17 20:25 INR 1.0 (0.9-1.2) 02/11/17 20:25 APTT 27.7 Seconds (25.6-37.1) 02/11/17 20:25 - Constitutional Appears: Well, No Acute Distress - Head Exam Head Exam: ATRAUMATIC, NORMOCEPHALIC - Eye Exam Eye Exam: EOMI, PERRL - ENT Exam ENT Exam: Mucous Membranes Moist, Normal Oropharynx - Neck Exam Neck Exam: Full ROM. absent: Lymphadenopathy - Respiratory Exam Respiratory Exam: Clear to Ausculation Bilateral, NORMAL BREATHING PATTERN - Cardiovascular Exam Cardiovascular Exam: REGULAR RHYTHM, +S1, +S2 - GI/Abdominal Exam GI & Abdominal Exam: Soft, Normal Bowel Sounds. absent: Distended, Tenderness - Extremities Exam Extremities Exam: Full ROM. absent: Calf Tenderness, Pedal Edema - Back Exam Back Exam: absent: CVA tenderness (L), CVA tenderness (R) - Neurological Exam Neurological Exam: Alert, Awake, CN II-XII Intact, Oriented x3 - Psychiatric Exam Psychiatric exam: Normal Affect, Normal Mood - Skin Skin Exam: Dry, Intact, Warm Assessment and Plan - Assessment and Plan (Free Text) Assessment: 86 yr old F admitted for change in mental status, lethargy, urinary frequency, decreased PO intake and vomiting x 2 episodes, found to have acute on chronic kidney disease, metabolic acidosis, hypotension, hyperkalemia. PMHx of baseline dementia, CKD stage III-A, NIDDM, HTN and HLD. Patients renal function continues to improve, no need for further HD , right IJV catheter may be removed. Patient remains stable, with anorexia, calorie count is being assessed , hypokalemia of 3.2. 1. Acute on Chronic Kidney Injury -stable, BUN/Cr today 9/2.0, improving, no HD for now -likely secondary to dehydration and infection (UTI) -leukocytosis resoved, UA large leukocytes, afebrile -Abd xray: no nephrolithiasis -Abd US: Small hepatic hemangioma, no gallstones or ductal dilatation. -Nephrology Consult appreciated (Dr Louise): will follow recommendations -HOLD and minimize nephrotoxic drugs -hypokalemia of 3.2 : K-dur 20 mEq tab QD - monitor BUN/Cr, Potassium -UCx no growth Bcx no growth x 5days, procalcitonin 0.49 -f/u magnesium 2. Altered Mental Status secondary to Metabolic Encephalopathy -stable, mentation improved, likely secondary to renal failure due to dehydration and infection -baseline dementia -UCx no growth Bcx no growth x 5 days, procalcitonin 0.49 -PT eval : Recommend SubAcute Rehab upon discharge 3. Anemia -stable, chronic, H/H 10.2/31.2 (02/17) -likely secondary to poor PO intake and chronic disease (CKD) -dietitian consult placed, calorie count ordered, f/u results 4. Thrombocytopenia -improving, plts 113 on 02/17; were 197 on admission -stool for occult blood negative -f/u HIT labs, discontinued Heparin -monitor plts 5. Oropharyngeal/Esophageal Candidiasis -continue Nystatin 5mL PO QID, Fluconazole 400mg IV (on day 01/06) 6. Diabetes -uncontrolled, chronic -HbA1c 8.1 (01/22/2017) -HOLD renally excreted medications at this time -Humulin R SC ACHS -Hypoglycemia protocol -Diet: Dysphagia modified, Suplena supplements 8oz (2 per day) 7. Hypertension -chronic, uncontrolled -continue Amlodipine 10mg PO QD -hold medications for now (Lisinopril/HCTZ 20-25 mg PO QD) -monitor BP 8. Dementia -chronic, stable -Baseline dementia, lives by herself, ambulates without assistance at baseline, family assists with ADLs. 9. DVT prophylaxis -discontinued Heparin d/t thrombocytopenia -SCD's for now
[2017-02-19 08:19] LABS: POTASSIUM 3.2 MMOL/L (3.6-5.0)
[2017-02-19] MEDS: Nystatin 100,000 Units/ml Oral Susp 5 ml UD PO SCH (08:22)
[2017-02-19] MEDS: Insulin Regular 100 units/ml SC SCH ×2 (08:23→11:30)
[2017-02-19] MEDS: Fluconazole IV 400mg/200ml NS 200 ML IVPB SCH (08:33)
[2017-02-19] MEDS ORDERED: Potassium Chloride 20 mEq ER Tab PO SCH (09:00)
--- NOTE | 2017-02-19 13:23 | CP.PCM.PN ---
Subjective - Date & Time of Evaluation Date of Evaluation: 02/19/17 Time of Evaluation: 13:21 - Subjective Subjective: Patient and bed Appeared to be comfortable No nausea no vomiting Physical exam Chest no rales Heart no rubs Abdomen soft Extremity no edema Impression and plan Acute renal failure patient is recovering kidney function continued to improve. Patient is remove the dialysis catheter I spoke to the nurse to call the resident. For arrangement. Objective - Vital Signs/Intake and Output Vital Signs (last 24 hours): Temp Pulse Resp BP Pulse Ox 98.1 F 75 18 151/76 H 99 02/19/17 07:38 02/19/17 08:23 02/19/17 07:38 02/19/17 08:23 02/19/17 07:38 Intake and Output: 02/19/17 02/19/17 06:59 18:59 Intake Total 1400 Balance 1400 - Medications Medications: Current Medications Amlodipine Besylate (Norvasc) 10 mg PO DAILY [facility] Last Admin: 02/19/17 08:23 Dose: 10 mg Dextrose (Dextrose 50% Inj) 0 ml IV STAT PRN; Protocol PRN Reason: Hyglycemia Protocol Dextrose (Glutose 15) 0 gm PO ONCE PRN; Protocol PRN Reason: Hypoglycemia Protocol Glucagon (Glucagen Diagnostic Kit) 0 mg IM STAT PRN; Protocol PRN Reason: Hypoglycemia Protocol Fluconazole (Diflucan Iv 400mg/200ml Ns) 200 mls @ 100 mls/hr IVPB DAILY [facility] Last Admin: 02/19/17 08:33 Dose: 100 mls/hr Potassium Chloride/Sodium Chloride (Potassium Chl 20 Meq In Ns) 1,000 mls @ 100 mls/hr IV .Q10H [facility] Last Admin: 02/19/17 07:25 Dose: Not Given Insulin Human Regular (Humulin R) 0 units SC ACHS [facility] PRN Reason: Protocol Last Admin: 02/19/17 11:30 Dose: 3 units Nystatin (Nystatin Oral Susp) 5 ml PO QID [facility] Last Admin: 02/19/17 08:22 Dose: 5 ml Ondansetron HCl (Zofran Inj) 4 mg IVP Q6 PRN PRN Reason: Nausea/Vomiting Potassium Chloride (K-Dur 20 Meq Er Tab) 20 meq PO DAILY [facility] Last Admin: 02/19/17 08:22 Dose: 20 meq - Labs Labs: 02/17/17 05:50 02/19/17 06:55 PT 11.2 Seconds (9.8-13.1) 02/11/17 20:25 INR 1.0 (0.9-1.2) 02/11/17 20:25 APTT 27.7 Seconds (25.6-37.1) 02/11/17 20:25 Assessment and Plan (1) Hyperkalemia Status: Acute (2) Metabolic acidemia Status: Acute (3) Dementia Status: Chronic (4) Diabetes Status: Chronic (5) Acute renal failure Status: Acute
[2017-02-19 17:09] LABS: UFH SRA RESULT Negative (Negative)
== END 2017-02-19 16:00 | DRG 682 ==
LOC: H.ER 19:23 → H.ERHOLD 22:21 → H.TEL 23:57 → H.ICU/CCU 02-12 11:56 → H.MEDSURG1 02-15 11:16
PROVIDERS: ADMIT Family Medicine Geriatric Medicine; ATTEND Family Medicine Geriatric Medicine
PROC: 05HM33Z Insertion of Infusion Device into Right Internal Jugular Vein, Percutaneous Approach (ICD-10-PCS; principal; 2017-02-12)
PROC: B543ZZA Ultrasonography of Right Jugular Veins, Guidance (ICD-10-PCS; 2017-02-12)
PROC: 5A1D60Z (ICD-10-PCS; 2017-02-12)
DX: N17.9 Acute kidney failure, unspecified (principal); G93.41 Metabolic encephalopathy; E87.2 Acidosis; D69.6 Thrombocytopenia, unspecified; B37.81 Candidal esophagitis; E10.22 Type 1 diabetes mellitus with diabetic chronic kidney disease; I95.9 Hypotension, unspecified; F03.90 Unspecified dementia, unspecified severity, without behavioral disturbance, psychotic disturbance, mood disturbance, and anxiety; N39.0 Urinary tract infection, site not specified; E87.5 Hyperkalemia; E86.0 Dehydration; E87.6 Hypokalemia; I12.9 Hypertensive chronic kidney disease with stage 1 through stage 4 chronic kidney disease, or unspecified chronic kidney disease; N18.3 Chronic kidney disease, stage 3 (moderate); D63.8 Anemia in other chronic diseases classified elsewhere; E83.42 Hypomagnesemia; E83.39 Other disorders of phosphorus metabolism; E78.5 Hyperlipidemia, unspecified; Z66 Do not resuscitate; Z99.2 Dependence on renal dialysis; Z79.4 Long term (current) use of insulin

== ENCOUNTER 2017-02-19 14:55 | Inpatient (IN) | payer OTHER, BC ==
[2017-02-19 16:22] VITALS: BMI 28.6
[2017-02-19] MEDS ORDERED: Dextrose 50% SYRINGE Inj (50 ml) IV PRN (16:25)
[2017-02-19] MEDS ORDERED: Glucagon Recombinant 1 mg Inj IM PRN (16:25)
[2017-02-19] MEDS: Insulin Regular 100 units/ml SC SCH ×2 (16:36→21:46)
[2017-02-20 06:54] LABS: HEMATOCRIT 32.7 % (34.0-47.0); MEAN CELL VOLUME 84.2 fl (81.0-99.0); MEAN CORPUSCULAR HEMOGLOBIN 27.3 pg (27.0-31.0); MEAN CORPUSCULAR HGB CONC 32.4 g/dL (33.0-37.0); RED CELL DISTRIBUTION WIDTH 15.5 % (11.5-14.5); WHITE BLOOD COUNT 7.6 K/uL (4.8-10.8)
[2017-02-20 07:07] LABS: CALCIUM 7.9 mg/dL (8.4-10.2); MAGNESIUM 1.1 MG/DL (1.6-2.3); POTASSIUM 2.8 MMOL/L (3.6-5.0)
[2017-02-20] MEDS: Insulin Regular 100 units/ml SC SCH ×3 (07:39→17:04)
--- NOTE | 2017-02-20 08:41 | CP.PCM.HP ---
History of Present Illness - History of Present Illness History of Present Illness: 86 yr old F admitted to TCU for rehabilitation. Patient was transferred from [facility] where she was admitted for altered mental status secondary to metabolic encephalopathy due to acute on chronic kidney injury. Patient's kidneys recovered after 2 session of temporary hemodialysis. Her mentations has improved, she has PMHx of baseline dementia, CKD stage III-A, NIDDM, HTN and HLD. Patient is stable, calorie count is being recorded as patient has hx of poor PO intake. PMD: Dr Barron (last visit 01/01/2017) PMHx: CKD stage III-A, NIDDM, HTN and HLD, baseline dementia PSHx: Denies SocialHx: denies Etoh/smoking/drugs, lives alone, sister lives above her, son visits her in AM and PM to give medications and ensure pt eats Meds: Amlodipine 10mg PO QD, ASA 81mg PO QD, Janumet 50-1000mg 1 tab with meals PO BID, Lantus 30 units SC in PM, Humalog Kwikpen 6 units SC before meals, Lisinopril-HCTZ 20-25mg 1 tab PO QD, Caduet (Amlodipine/Atorvastatin) 10-10 mg 1 tab PO QD, Allergies: NKDA Present on Admission - Present on Admission Any Indicators Present on Admission: No History of DVT/PE: No History of Uncontrolled Diabetes: Yes Urinary Catheter: No Decubitus Ulcer Present: No Review of Systems - Review of Systems All systems: reviewed and no additional remarkable complaints except (for what is mentioned in HPI) Past Patient History - Past Medical History & Family History Past Medical History?: Yes - Past Social History Smoking Status: Never Smoked - CARDIAC Hx Hypertension: Yes - PULMONARY Hx Respiratory Disorders: No - NEUROLOGICAL Hx Dementia: Yes - HEENT Hx HEENT Problems: No - RENAL Date of Last Dialysis Treatment: 02/13/17 Hx Renal Failure: Yes - ENDOCRINE/METABOLIC Hx Diabetes Mellitus Type 1: Yes - HEMATOLOGICAL/ONCOLOGICAL Hx Blood Disorders: Yes Hx Anemia: Yes - INTEGUMENTARY Hx Dermatological Problems: No - MUSCULOSKELETAL/RHEUMATOLOGICAL Hx Musculoskeletal Disorders: No Hx Falls: No - GASTROINTESTINAL Hx Gastrointestinal Disorders: No - GENITOURINARY/GYNECOLOGICAL Hx Genitourinary Disorders: No - PSYCHIATRIC Hx Psychophysiologic Disorder: No Hx Substance Use: No - SURGICAL HISTORY Hx Surgeries: No - ANESTHESIA Hx Anesthesia: No Hx Anesthesia Reactions: No Hx Malignant Hyperthermia: No Has any member of the family had a problem w/ anesthesia?: No Meds Allergies/Adverse Reactions: Allergies Allergy/AdvReac Type Severity Reaction Status Date / Time No Known Allergies Allergy Verified 02/12/17 00:27 Physical Exam - Constitutional Appears: Well, No Acute Distress - Head Exam Head Exam: ATRAUMATIC, NORMOCEPHALIC - Eye Exam Eye Exam: EOMI, PERRL - ENT Exam ENT Exam: Mucous Membranes Moist - Neck Exam Neck exam: Positive for: Full Rom. Negative for: Lymphadenopathy - Respiratory Exam Respiratory Exam: Clear to Auscultation Bilateral, NORMAL BREATHING PATTERN - Cardiovascular Exam Cardiovascular Exam: REGULAR RHYTHM, +S1, +S2 - GI/Abdominal Exam GI & Abdominal Exam: Normal Bowel Sounds, Soft. absent: Distended, Tenderness - Extremities Exam Extremities exam: Positive for: full ROM. Negative for: calf tenderness, pedal edema - Back Exam Back exam: absent: CVA tenderness (L), CVA tenderness (R) - Neurological Exam Neurological exam: Alert, CN II-XII Intact (oriented to self and place) - Psychiatric Exam Psychiatric exam: Normal Affect, Normal Mood - Skin Skin Exam: Dry, Intact, Warm Results - Vital Signs Recent Vital Signs: Last Vital Signs Temp 98.2 F 02/19/17 21:53 Pulse 81 02/20/17 08:19 Resp 20 02/19/17 21:53 BP 135/60 02/20/17 08:19 Pulse Ox 99 02/19/17 21:53 - Labs Result Diagrams: 02/20/17 06:41 02/20/17 06:41 Labs: Laboratory Results - last 24 hr 02/19/17 02/20/17 02/20/17 20:45 06:41 06:41 WBC 7.6 RBC 3.89 Hgb 10.6 L Hct 32.7 L MCV 84.2 MCH 27.3 MCHC 32.4 L RDW 15.5 H Plt Count 204 Sodium 145 Potassium 2.8 L Chloride 110 H Carbon Dioxide 24 Anion Gap 14 BUN 9 Creatinine 1.8 H Est GFR ( Amer) 32 Est GFR (Non-Af Amer) 27 POC Glucose (mg/dL) 281 H Random Glucose 109 H Calcium 7.9 L Magnesium 1.1 L 02/20/17 07:14 WBC RBC Hgb Hct MCV MCH MCHC RDW Plt Count Sodium Potassium Chloride Carbon Dioxide Anion Gap BUN Creatinine Est GFR ( Amer) Est GFR (Non-Af Amer) POC Glucose (mg/dL) 142 H Random Glucose Calcium Magnesium Assessment & Plan - Assessment and Plan (Free Text) Assessment: 86 yr old F admitted to TCU for rehabilitation. Patient was transferred from [facility] where she was admitted for altered mental status secondary to metabolic encephalopathy due to acute on chronic kidney injury. Patient's kidneys recovered after 2 session of temporary hemodialysis. Her mentations has improved, she has PMHx of baseline dementia, CKD stage III-A, NIDDM, HTN and HLD. Patient is stable, calorie count is being recorded as patient has hx of poor PO intake. 1. Chronic Kidney Injury stage III-B GFR 30-44 -stable, BUN/Cr today 9/1.8, GFR 32 -Nephrology Consult appreciated (Dr Louise): will follow recommendations -HOLD and minimize nephrotoxic drugs -hypokalemia of 2.8 : K-dur 20 mEq tab PO BID -hypomagnesemia of 1.1: Magnesium 400mg PO BID - monitor BUN/Cr, Potassium, magnesium 2. Anemia -stable, chronic, H/H 10.6/32.7 (02/20) -likely secondary to poor PO intake and chronic disease (CKD) -dietitian consult placed, calorie count ordered, f/u results 3. Thrombocytopenia -resolved, s/p d/c Heparin, plts 204 today -stool for occult blood negative -heparin induced Ab negative -monitor plts 4. Diabetes -uncontrolled, chronic -HbA1c 8.1 (01/22/2017) -HOLD renally excreted medications at this time -Humulin R SC ACHS -Hypoglycemia protocol -Diet: Dysphagia modified, Suplena supplements 8oz (2 per day) 5. Hypertension -chronic, uncontrolled -continue Amlodipine 10mg PO QD -hold medications for now (Lisinopril/HCTZ 20-25 mg PO QD) -monitor BP 6. Dementia -chronic, stable -Baseline dementia, lives by herself, ambulates without assistance at baseline, family assists with ADLs. 7. DVT prophylaxis -discontinued Heparin d/t thrombocytopenia -SCD's for now, will consider resuming - Date & Time Date: 02/20/17 Time: 08:00
[2017-02-20] MEDS ORDERED: Potassium Chloride 20 mEq ER Tab PO SCH ×2 (09:00→17:00)
[2017-02-20] MEDS: Potassium Chloride 20 mEq ER Tab PO SCH ×2 (10:02→17:18)
[2017-02-20] MEDS: Magnesium Oxide 400 mg Tab UD PO SCH ×2 (10:02→17:04)
--- NOTE | 2017-02-20 11:13 | CP.PCM.PN ---
Subjective - Date & Time of Evaluation Date of Evaluation: 02/20/17 Time of Evaluation: 11:11 - Subjective Subjective: transferred from floor recovering from ARF given twice HD dialysis catheter is out stable continue monitering as per primary team Objective - Vital Signs/Intake and Output Vital Signs (last 24 hours): Temp Pulse Resp BP Pulse Ox 97.5 F L 81 20 147/67 99 02/20/17 08:36 02/20/17 08:36 02/20/17 08:36 02/20/17 08:36 02/20/17 08:36 - Medications Medications: Current Medications Amlodipine Besylate (Norvasc) 10 mg PO DAILY [facility] Last Admin: 02/20/17 08:19 Dose: 10 mg Dextrose (Dextrose 50% Inj) 0 ml IV STAT PRN; Protocol PRN Reason: Hyglycemia Protocol Dextrose (Glutose 15) 0 gm PO ONCE PRN; Protocol PRN Reason: Hypoglycemia Protocol Glucagon (Glucagen Diagnostic Kit) 0 mg IM STAT PRN; Protocol PRN Reason: Hypoglycemia Protocol Insulin Human Regular (Humulin R) 0 units SC ACHS [facility] PRN Reason: Protocol Last Admin: 02/20/17 07:39 Dose: Not Given Magnesium Oxide (Mag-Ox) 400 mg PO BID [facility] Mirtazapine (Remeron) 30 mg PO HS [facility] Last Admin: 02/19/17 21:46 Dose: 30 mg Ondansetron HCl (Zofran Inj) 4 mg IVP Q6 PRN PRN Reason: Nausea/Vomiting Potassium Chloride (K-Dur 20 Meq Er Tab) 20 meq PO BID [facility] - Labs Labs: 02/20/17 06:41 02/20/17 06:41
[2017-02-21] MEDS: Insulin Regular 100 units/ml SC SCH ×5 (00:03→21:12)
[2017-02-21 08:06] LABS: CALCIUM 8.1 mg/dL (8.4-10.2); POTASSIUM 3.2 MMOL/L (3.6-5.0)
[2017-02-21] MEDS: Potassium Chloride 20 mEq ER Tab PO SCH ×2 (09:00→16:52)
[2017-02-21] MEDS: Magnesium Oxide 400 mg Tab UD PO SCH ×2 (09:01→16:52)
--- NOTE | 2017-02-21 17:43 | CP.PCM.CON ---
History of Present Illness - History of Present Illness History of Present Illness: 86 y/o female with PMHx of altered mental status, metabolic encephalopathy, DM, HTN, HLD, CKD stage III, baseline dementia presents with elongated painful toenails. Patient is currently on Amlodipine, Janumet, Lantus, Humalog, Lisinoprul and Caduet. Patient denies any F/N/V/C/SOB. Patient has no known drug allergies. Review of Systems - Review of Systems Review of Systems: All systems reviewed and found to be negative outside of HPI Past Patient History - Past Medical History & Family History Past Medical History?: Yes - Past Social History Smoking Status: Never Smoked - CARDIAC Hx Hypertension: Yes - PULMONARY Hx Respiratory Disorders: No - NEUROLOGICAL Hx Dementia: Yes - HEENT Hx HEENT Problems: No - RENAL Date of Last Dialysis Treatment: 02/13/17 Hx Renal Failure: Yes - ENDOCRINE/METABOLIC Hx Diabetes Mellitus Type 1: Yes - HEMATOLOGICAL/ONCOLOGICAL Hx Blood Disorders: Yes Hx Anemia: Yes - INTEGUMENTARY Hx Dermatological Problems: No - MUSCULOSKELETAL/RHEUMATOLOGICAL Hx Musculoskeletal Disorders: No Hx Falls: No - GASTROINTESTINAL Hx Gastrointestinal Disorders: No - GENITOURINARY/GYNECOLOGICAL Hx Genitourinary Disorders: No - PSYCHIATRIC Hx Psychophysiologic Disorder: No Hx Substance Use: No - SURGICAL HISTORY Hx Surgeries: No - ANESTHESIA Hx Anesthesia: No Hx Anesthesia Reactions: No Hx Malignant Hyperthermia: No Has any member of the family had a problem w/ anesthesia?: No Meds Allergies/Adverse Reactions: Allergies Allergy/AdvReac Type Severity Reaction Status Date / Time No Known Allergies Allergy Verified 02/12/17 00:27 - Medications Medications: Current Medications Amlodipine Besylate (Norvasc) 10 mg PO DAILY [facility] Last Admin: 02/21/17 09:00 Dose: 10 mg Dextrose (Dextrose 50% Inj) 0 ml IV STAT PRN; Protocol PRN Reason: Hyglycemia Protocol Dextrose (Glutose 15) 0 gm PO ONCE PRN; Protocol PRN Reason: Hypoglycemia Protocol Glucagon (Glucagen Diagnostic Kit) 0 mg IM STAT PRN; Protocol PRN Reason: Hypoglycemia Protocol Insulin Human Regular (Humulin R) 0 units SC ACHS [facility] PRN Reason: Protocol Last Admin: 02/21/17 17:01 Dose: 5 units Magnesium Oxide (Mag-Ox) 400 mg PO BID [facility] Last Admin: 06/22/17 16:52 Dose: 400 mg Mirtazapine (Remeron) 30 mg PO HS [facility] Last Admin: 02/21/17 00:05 Dose: 30 mg Ondansetron HCl (Zofran Inj) 4 mg IVP Q6 PRN PRN Reason: Nausea/Vomiting Potassium Chloride (K-Dur 20 Meq Er Tab) 20 meq PO BID [facility] Last Admin: 02/21/17 16:52 Dose: 20 meq Physical Exam - Constitutional Appears: Well, Non-toxic, No Acute Distress - Extremities Exam Additional comments: Vasc: DP/PT 2/4 B/L. Temp gradient WNL. CFT < 3 sec x 10. No varicosities present Derm: Elongated dystrophic toenails x 10. Xerosis on anterior shins B/L. Neuro: Protective sensation grossly intact B/L Ortho: Muscle strength 5/5 in all directions. - Neurological Exam Neurological exam: Alert, Oriented x3 - Psychiatric Exam Psychiatric exam: Normal Affect, Normal Mood Results - Vital Signs Recent Vital Signs: Last Vital Signs Temp 97.7 F 02/21/17 08:10 Pulse 67 02/21/17 14:30 Resp 20 02/21/17 08:10 BP 152/68 H 02/21/17 14:30 Pulse Ox 98 02/21/17 14:30 - Labs Result Diagrams: 02/20/17 06:41 02/21/17 07:19 Labs: Laboratory Results - last 24 hr 02/20/17 02/21/17 02/21/17 20:45 06:53 07:19 Sodium 143 Potassium 3.2 L Chloride 111 H Carbon Dioxide 25 Anion Gap 10 BUN 9 Creatinine 1.6 H Est GFR ( Amer) 37 Est GFR (Non-Af Amer) 31 POC Glucose (mg/dL) 370 H 138 H Random Glucose 124 H Calcium 8.1 L 02/21/17 02/21/17 10:44 16:55 Sodium Potassium Chloride Carbon Dioxide Anion Gap BUN Creatinine Est GFR ( Amer) Est GFR (Non-Af Amer) POC Glucose (mg/dL) 350 H 379 H Random Glucose Calcium Assessment & Plan - Assessment and Plan (Free Text) Assessment: 86 y/o diabetic female seen at bedside for debridement of toenails x 10 Plan: Pt seen and evaluated resting comfortably in chair Discussed plan with attending Dr. Mohan Chart reviewed Aseptic debridement of elongated toenails x 10 using sterile nippers Pt tolerated procedure well and there were no complications Pt is stable from podiatry standpoint Podiatry to sign off on care, please consult in the future as necessary
--- NOTE | 2017-02-21 19:43 | CP.PCM.PCO ---
Physician Communication Note - Physician Communication Note Physician Communication Note: Please see above
[2017-02-22] MEDS: Insulin Regular 100 units/ml SC SCH ×4 (07:30→21:43)
[2017-02-22 08:05] LABS: CALCIUM 9.3 mg/dL (8.4-10.2); MAGNESIUM 1.4 MG/DL (1.6-2.3); PHOSPHOROUS 2.2 mg/dl (2.5-4.5); POTASSIUM 3.6 MMOL/L (3.6-5.0)
[2017-02-22] MEDS: Magnesium Oxide 400 mg Tab UD PO SCH ×2 (09:00→16:30)
[2017-02-22] MEDS: Potassium Chloride 20 mEq ER Tab PO SCH ×2 (09:00→16:30)
[2017-02-22 09:19] VITALS: RESP 20
[2017-02-23] MEDS: Insulin Regular 100 units/ml SC SCH ×4 (06:46→21:35)
[2017-02-23] MEDS: Magnesium Oxide 400 mg Tab UD PO SCH ×2 (09:02→17:11)
[2017-02-23] MEDS: Potassium Chloride 20 mEq ER Tab PO SCH ×2 (09:02→17:11)
--- NOTE | 2017-02-23 16:05 | CP.PCM.PN ---
Subjective - Date & Time of Evaluation Date of Evaluation: 02/23/17 Time of Evaluation: 09:00 - Subjective Subjective: Patient seen and examined at bedside, siting in a chair in no acute distress, oriented to person, place and son at bedside. Denies SOB, chest pain, weakness or dizziness. Tolerating PT but has fatigue requiring seated breaks during PT sessions. Nutrition assessed for PO intake, patient consumes 25-49% of required amount. Patient remains with poor PO intake. Objective - Vital Signs/Intake and Output Vital Signs (last 24 hours): Temp Pulse Resp BP Pulse Ox 97.7 F 75 20 147/61 99 02/23/17 08:19 02/23/17 09:02 02/23/17 08:19 02/23/17 09:02 02/23/17 08:19 - Medications Medications: Current Medications Amlodipine Besylate (Norvasc) 10 mg PO DAILY [facility] Last Admin: 02/23/17 09:02 Dose: 10 mg Dextrose (Dextrose 50% Inj) 0 ml IV STAT PRN; Protocol PRN Reason: Hyglycemia Protocol Dextrose (Glutose 15) 0 gm PO ONCE PRN; Protocol PRN Reason: Hypoglycemia Protocol Glucagon (Glucagen Diagnostic Kit) 0 mg IM STAT PRN; Protocol PRN Reason: Hypoglycemia Protocol Insulin Human Regular (Humulin R) 0 units SC ACHS [facility] PRN Reason: Protocol Last Admin: 02/23/17 12:02 Dose: 2 units Magnesium Oxide (Mag-Ox) 400 mg PO BID [facility] Last Admin: 02/23/17 09:02 Dose: 400 mg Mirtazapine (Remeron) 30 mg PO HS [facility] Last Admin: 02/22/17 21:05 Dose: 30 mg Ondansetron HCl (Zofran Inj) 4 mg IVP Q6 PRN PRN Reason: Nausea/Vomiting Potassium Chloride (K-Dur 20 Meq Er Tab) 20 meq PO BID [facility] Last Admin: 02/23/17 09:02 Dose: 20 meq - Labs Labs: 02/20/17 06:41 02/22/17 06:51 - Constitutional Appears: No Acute Distress - Head Exam Head Exam: ATRAUMATIC, NORMOCEPHALIC - Eye Exam Eye Exam: EOMI, PERRL - ENT Exam ENT Exam: Mucous Membranes Moist - Neck Exam Neck Exam: Full ROM. absent: Lymphadenopathy - Respiratory Exam Respiratory Exam: Clear to Ausculation Bilateral, NORMAL BREATHING PATTERN - Cardiovascular Exam Cardiovascular Exam: REGULAR RHYTHM, +S1, +S2 - GI/Abdominal Exam GI & Abdominal Exam: Soft, Normal Bowel Sounds. absent: Tenderness - Extremities Exam Extremities Exam: Full ROM. absent: Calf Tenderness, Pedal Edema - Back Exam Back Exam: absent: CVA tenderness (L), CVA tenderness (R) - Neurological Exam Neurological Exam: Alert, Awake, CN II-XII Intact - Psychiatric Exam Psychiatric exam: Normal Affect, Normal Mood - Skin Skin Exam: Dry, Intact, Warm Assessment and Plan - Assessment and Plan (Free Text) Assessment: 86 yr old F admitted to TCU for rehabilitation. Patient was transferred from [facility] where she was admitted for altered mental status secondary to metabolic encephalopathy due to acute on chronic kidney injury. Patient's kidneys recovered after 2 session of temporary hemodialysis. Her mentation has improved, she has PMHx of baseline dementia, CKD stage III-A, NIDDM, HTN and HLD. Patient is stable, has poor PO intake (25-49% of required amount as assessed by calorie count), tolerates PT with episodes of fatigue requiring seated breaks. 1. Chronic Kidney Injury stage III-B GFR 30-44 -stable, BUN/Cr 10/1.7, GFR 34 -Nephrology Consult appreciated (Dr Louise): will follow recommendations -HOLD and minimize nephrotoxic drugs -hypokalemia resolved -hypomagnesemia of 1.4: Magnesium 400mg PO BID - monitor BUN/Cr, Potassium, magnesium 2. Anemia -stable, chronic, H/H 10.6/32.7 (02/20) -likely secondary to poor PO intake and chronic disease (CKD) -dietitian consult placed, calorie count results: poo PO intake with 25-49% of required amount -continue to monitor PO intake, pt will need services 25/03 upon discharge 3. Diabetes -uncontrolled, chronic -HbA1c 8.1 (01/22/2017) -HOLD renally excreted medications at this time -Humulin R SC ACHS -Hypoglycemia protocol -Diet: Dysphagia modified, Suplena supplements 8oz (2 per day) 4. Hypertension -chronic, uncontrolled -continue Amlodipine 10mg PO QD -hold medications for now (Lisinopril/HCTZ 20-25 mg PO QD) -monitor BP 5. Dementia -chronic, stable -Baseline dementia, lives by herself, ambulates without assistance at baseline, family assists with ADLs. 6. DVT prophylaxis -discontinued Heparin d/t thrombocytopenia -SCD's for now, pt is ambulating and participates in PT, will consider resuming heparin
[2017-02-23 21:43] LABS: HEMATOCRIT 30.1 % (34.0-47.0); MEAN CELL VOLUME 84.6 fl (81.0-99.0); MEAN CORPUSCULAR HEMOGLOBIN 27.6 pg (27.0-31.0); MEAN CORPUSCULAR HGB CONC 32.6 g/dL (33.0-37.0); RED CELL DISTRIBUTION WIDTH 15.5 % (11.5-14.5); WHITE BLOOD COUNT 6.8 K/uL (4.8-10.8)
[2017-02-23 21:56] LABS: CALCIUM 9.8 mg/dL (8.4-10.2); POTASSIUM 5.2 MMOL/L (3.6-5.0)
[2017-02-24 00:32] LABS: RBC URINE 11 /hpf (0-3); URINE BACTERIA OCC (<OCC); URINE BILIRUBIN NEGATIVE (NEGATIVE); URINE BLOOD MODERATE (NEGATIVE); URINE COLOR YELLOW (YELLOW); URINE GLUCOSE (UA) >=500 mg/dL (Normal); URINE KETONE NEGATIVE (NEGATIVE); URINE LEUKOCYTE ESTERASE LARGE Leu/uL (Negative); URINE PROTEIN NEGATIVE (NEGATIVE); URINE UROBILINOGEN 0.2-1.0 mg/dL (0.2-1.0); WBC CLUMPS FEW /hpf; WBC URINE 218 /hpf (0-5)
[2017-02-24] MEDS: Insulin Regular 100 units/ml SC SCH ×4 (07:08→21:44)
[2017-02-24] MEDS: Potassium Chloride 20 mEq ER Tab PO SCH (08:33)
[2017-02-24] MEDS: Magnesium Oxide 400 mg Tab UD PO SCH ×2 (08:34→17:39)
--- NOTE | 2017-02-24 13:30 | CP.PCM.PN ---
Subjective - Date & Time of Evaluation Date of Evaluation: 02/24/17 Time of Evaluation: 13:28 - Subjective Subjective: Paged by RN, for elevated accuucheck >500, asymptomatic. Insulin given via sliding scale. UA done positive for UTI. Urine culture taken. Rocephin started. Patient is evaluated. Patient denies current complaints. States has noted increased urinary frequency. No hematuria, dysuria, fever, chills, and flank pain. Vitals currently stable. Patient only alerted to person, not to time and place. Objective - Vital Signs/Intake and Output Vital Signs (last 24 hours): Temp Pulse Resp BP Pulse Ox 98.6 F 78 20 135/62 99 02/24/17 08:05 02/24/17 08:34 02/24/17 08:05 02/24/17 08:34 02/24/17 08:05 - Medications Medications: Current Medications Amlodipine Besylate (Norvasc) 10 mg PO DAILY [facility] Last Admin: 02/24/17 08:34 Dose: 10 mg Dextrose (Dextrose 50% Inj) 0 ml IV STAT PRN; Protocol PRN Reason: Hyglycemia Protocol Dextrose (Glutose 15) 0 gm PO ONCE PRN; Protocol PRN Reason: Hypoglycemia Protocol Glucagon (Glucagen Diagnostic Kit) 0 mg IM STAT PRN; Protocol PRN Reason: Hypoglycemia Protocol Ceftriaxone Sodium 1 gm/ (Sodium Chloride) 100 mls @ 100 mls/hr IVPB DAILY [facility] Insulin Human Regular (Humulin R) 0 units SC ACHS [facility] PRN Reason: Protocol Last Admin: 02/24/17 11:59 Dose: 8 units Magnesium Oxide (Mag-Ox) 400 mg PO BID [facility] Last Admin: 02/24/17 08:34 Dose: 400 mg Mirtazapine (Remeron) 30 mg PO HS [facility] Last Admin: 02/23/17 21:04 Dose: 30 mg Ondansetron HCl (Zofran Inj) 4 mg IVP Q6 PRN PRN Reason: Nausea/Vomiting Potassium Chloride (K-Dur 20 Meq Er Tab) 20 meq PO BID [facility] Last Admin: 02/24/17 08:33 Dose: Not Given - Labs Labs: 02/23/17 21:30 02/23/17 21:30 - Constitutional Appears: No Acute Distress - Eye Exam Eye Exam: EOMI Pupil Exam: PERRL - ENT Exam ENT Exam: Mucous Membranes Dry - Neck Exam Neck Exam: Full ROM - Respiratory Exam Respiratory Exam: Clear to Ausculation Bilateral - GI/Abdominal Exam GI & Abdominal Exam: Soft, Normal Bowel Sounds - Extremities Exam Extremities Exam: Normal Inspection. absent: Calf Tenderness - Back Exam Back Exam: absent: CVA tenderness (L), CVA tenderness (R) - Neurological Exam Neurological Exam: Awake. absent: Alert - Psychiatric Exam Psychiatric exam: Normal Affect, Normal Mood - Skin Skin Exam: Dry, Normal Color, Warm Assessment and Plan - Assessment and Plan (Free Text) Assessment: 86 yr old F admitted to TCU for rehabilitation. Patient was transferred from [facility] where she was admitted for altered mental status secondary to metabolic encephalopathy due to acute on chronic kidney injury. Patient's kidneys recovered after 2 session of temporary hemodialysis. Her mentation has improved, she has PMHx of baseline dementia, CKD stage III-A, NIDDM, HTN and HLD. Patient is stable, has poor PO intake (25-49% of required amount as assessed by calorie count), tolerates PT with episodes of fatigue requiring seated breaks. UTI -pending urine culture -rocephin 1 gram daily Hyperkalemia -K 5.2 asymptomatic -EKG does not show any acute changes -will hold Kdur -repeat BMP tomorrow Chronic Kidney Injury stage III-B GFR 30-44 -stable, BUN/Cr 10/1.7, GFR 34 -Nephrology Consult appreciated (Dr Louise): will follow recommendations -HOLD and minimize nephrotoxic drugs -hypokalemia resolved -hypomagnesemia of 1.4: Magnesium 400mg PO BID - monitor BUN/Cr, Potassium, magnesium Anemia -stable, chronic, H/H 10.6/32.7 (02/20) -likely secondary to poor PO intake and chronic disease (CKD) -dietitian consult placed, calorie count results: poo PO intake with 25-49% of required amount -continue to monitor PO intake, pt will need services 25/03 upon discharge Diabetes -uncontrolled, chronic -HbA1c 8.1 (01/22/2017) -HOLD renally excreted medications at this time -Humulin R SC ACHS -Hypoglycemia protocol -Diet: Dysphagia modified, Suplena supplements 8oz (2 per day) Hypertension -chronic, uncontrolled -continue Amlodipine 10mg PO QD -hold medications for now (Lisinopril/HCTZ 20-25 mg PO QD) -monitor BP Dementia -chronic, stable -Baseline dementia, lives by herself, ambulates without assistance at baseline, family assists with ADLs. DVT prophylaxis -discontinued Heparin d/t thrombocytopenia -SCD's for now, pt is ambulating and participates in PT, will consider resuming heparin
--- NOTE | 2017-02-25 01:08 | CARD ---
APPROVED REPORT EKG Measurement Heart [id number] <Conclusion> Normal sinus rhythm Nonspecific T wave abnormality Abnormal ECG
[2017-02-25 06:04] LABS: CALCIUM 9.4 mg/dL (8.4-10.2); POTASSIUM 3.6 MMOL/L (3.6-5.0)
[2017-02-25] MEDS: Insulin Regular 100 units/ml SC SCH ×4 (07:15→22:15)
[2017-02-25] MEDS: Magnesium Oxide 400 mg Tab UD PO SCH ×2 (08:24→17:06)
[2017-02-25] MEDS ORDERED: Insulin Detemir 100 Units/ml Inj SC SCH (22:00)
[2017-02-26] MEDS: Insulin Regular 100 units/ml SC SCH ×4 (06:31→21:55)
[2017-02-26] MEDS: Magnesium Oxide 400 mg Tab UD PO SCH ×2 (08:59→16:53)
--- NOTE | 2017-02-26 17:15 | CP.PCM.PCO ---
Assessment/Plan - Assessment and Plan (Free Text) Assessment: pt seen and examined. No complaints I spoke with editor managing director - slight improvement -now eats 50% of meals spoke with dtr who agrees Also daughter believes pt needs more supervision and wants to speak to sw about options.
[2017-02-26] MEDS: Insulin Detemir 100 Units/ml Inj SC SCH (21:54)
[2017-02-27] MEDS: Insulin Regular 100 units/ml SC SCH ×4 (06:44→22:12)
--- NOTE | 2017-02-27 08:14 | CP.PCM.PN ---
Subjective - Date & Time of Evaluation Date of Evaluation: 02/27/17 Time of Evaluation: 07:55 - Subjective Subjective: Patient seen and examined at bedside, sitting in the chair in no acute distress , no acute events overnight. Denies chest pain,SOB, weakness or dizziness. Reports normal urine output without dysuria. Denies pain. Objective - Vital Signs/Intake and Output Vital Signs (last 24 hours): Temp Pulse Resp BP Pulse Ox 97.9 F 82 20 147/83 98 02/27/17 08:04 02/27/17 08:04 02/27/17 08:04 02/27/17 08:04 02/27/17 08:04 - Medications Medications: Current Medications Amlodipine Besylate (Norvasc) 10 mg PO DAILY [facility] Last Admin: 02/26/17 08:59 Dose: 10 mg Dextrose (Dextrose 50% Inj) 0 ml IV STAT PRN; Protocol PRN Reason: Hyglycemia Protocol Dextrose (Glutose 15) 0 gm PO ONCE PRN; Protocol PRN Reason: Hypoglycemia Protocol Glucagon (Glucagen Diagnostic Kit) 0 mg IM STAT PRN; Protocol PRN Reason: Hypoglycemia Protocol Ceftriaxone Sodium 1 gm/ (Sodium Chloride) 100 mls @ 100 mls/hr IVPB DAILY@ 1700 [facility] Last Admin: 02/26/17 16:52 Dose: 100 mls/hr Insulin Detemir (Levemir) 10 units SC [facility] Last Admin: 02/26/17 21:54 Dose: 10 u Insulin Human Regular (Humulin R) 0 units SC ACHS [facility] PRN Reason: Protocol Last Admin: 02/27/17 06:44 Dose: Not Given Magnesium Oxide (Mag-Ox) 400 mg PO BID [facility] Last Admin: 02/26/17 16:53 Dose: 400 mg Mirtazapine (Remeron) 30 mg PO HS [facility] Last Admin: 02/26/17 21:56 Dose: 30 mg Ondansetron HCl (Zofran Inj) 4 mg IVP Q6 PRN PRN Reason: Nausea/Vomiting Potassium Chloride (K-Dur 20 Meq Er Tab) 20 meq PO BID [facility] Last Admin: 02/24/17 08:33 Dose: Not Given - Labs Labs: 02/23/17 21:30 02/25/17 05:10 - Constitutional Appears: Well, Non-toxic - Head Exam Head Exam: ATRAUMATIC, NORMOCEPHALIC - Eye Exam Eye Exam: EOMI, PERRL - ENT Exam ENT Exam: Mucous Membranes Moist - Neck Exam Neck Exam: Full ROM. absent: Lymphadenopathy - Respiratory Exam Respiratory Exam: Clear to Ausculation Bilateral, NORMAL BREATHING PATTERN - Cardiovascular Exam Cardiovascular Exam: REGULAR RHYTHM, +S1, +S2 - GI/Abdominal Exam GI & Abdominal Exam: Soft, Normal Bowel Sounds. absent: Tenderness - Extremities Exam Extremities Exam: Full ROM. absent: Calf Tenderness, Pedal Edema - Back Exam Back Exam: absent: CVA tenderness (L), CVA tenderness (R) - Neurological Exam Neurological Exam: Alert, Awake, CN II-XII Intact - Psychiatric Exam Psychiatric exam: Normal Affect, Normal Mood - Skin Skin Exam: Dry, Intact, Warm Assessment and Plan - Assessment and Plan (Free Text) Assessment: 86 yr old F admitted to TCU for rehabilitation. Patient was [facility] where she was admitted for altered mental status secondary to metabolic encephalopathy due to acute on chronic kidney injury. Patients' kidneys recovered after 2 sessions of temporary hemodialysis. Her mentation has improved, she has PMHx of baseline dementia, CKD stage III-A, NIDDM, HTN and HLD. Patient is stable, has moderate PO intake (~49% of required amount as assessed by calorie count), tolerates PT with episodes of fatigue requiring seated breaks. UTI -urine culture positive for GBS -pt is s/p 3 days Rocephin 1gm IVP QD -tomorrow will d/c rocephin and start Ampicillin PO Hyperkalemia -resolved, K 3.6 on 02/25/17 Chronic Kidney Injury stage III-B GFR 30-44 -stable, BUN/Cr 06/02.7, GFR 34 -Nephrology Consult appreciated (Dr Louise): will follow recommendations -HOLD and minimize nephrotoxic drugs - monitor BUN/Cr, Potassium, magnesium Anemia -stable, chronic, H/H 10.6/32.7 (02/20) -likely secondary to poor PO intake and chronic disease (CKD) -dietitian consult placed, calorie count results: moderate PO intake with ~49% of required amount -continue to monitor PO intake, pt will need services 25/03 upon discharge Diabetes -uncontrolled, chronic -HbA1c 8.1 (01/22/2017) -HOLD renally excreted medications at this time -Insulin Detemir 10 units SC HS -Humulin R SC ACHS -Hypoglycemia protocol -Diet: Dysphagia modified, Su[place] supplements 8oz (2 per day) Hypertension -chronic, controlled -continue Amlodipine 10mg PO QD -hold medications for now (Lisinopril/HCTZ 20-25 mg PO QD) -monitor BP Dementia -chronic, stable -Baseline dementia, lives by herself, ambulates without assistance at baseline, family assists with ADLs. DVT prophylaxis -discontinued Heparin d/t thrombocytopenia -SCD's for now, pt is ambulating and participates in PT, will consider resuming heparin
[2017-02-27] MEDS: Magnesium Oxide 400 mg Tab UD PO SCH ×2 (08:35→16:39)
[2017-02-27 20:34] VITALS: O2SAT 99
[2017-02-27] MEDS: Insulin Detemir 100 Units/ml Inj SC SCH (22:09)
[2017-02-28] MEDS: Insulin Regular 100 units/ml SC SCH ×2 (06:44→11:33)
[2017-02-28 07:10] LABS: BASO % 0.6 % (0.0-2.0); EOS # 0.2 K/uL (0.0-0.7); EOS % 2.6 % (0.0-4.0); HEMATOCRIT 26.7 % (34.0-47.0); LYMPH # 1.9 K/uL (1.0-4.3); LYMPH % 32.6 % (20.0-40.0); MEAN CORPUSCULAR HEMOGLOBIN 27.9 pg (27.0-31.0); MEAN CORPUSCULAR HGB CONC 33.2 g/dL (33.0-37.0); MEAN PLATELET VOLUME 8.4 fl (7.2-11.7); MONO # 0.6 K/uL (0.0-0.8); NEUT # 3.2 K/uL (1.8-7.0); NEUT % 54.2 % (50.0-75.0); RED CELL DISTRIBUTION WIDTH 15.4 % (11.5-14.5); WHITE BLOOD COUNT 5.9 K/uL (4.8-10.8)
[2017-02-28 07:21] LABS: CALCIUM 9.6 mg/dL (8.4-10.2); POTASSIUM 3.6 MMOL/L (3.6-5.0)
[2017-02-28 07:57] VITALS: BP 138/63; PULSE 79; TEMP 97.3
--- NOTE | 2017-02-28 09:52 | CP.PCM.DIS ---
Provider - Provider Date of Admission: 02/19/17 17:46 Attending physician: Brittney Tellez MD Primary care physician: Dr. Barron Consults: Nephrology Time Spent in preparation of Discharge (in minutes): 45 Diagnosis - Discharge Diagnosis (1) DIPAK (acute kidney injury) Status: Acute (2) Acute renal failure Status: Acute (3) UTI (lower urinary tract infection) Status: Acute (4) Dementia Status: Chronic (5) Diabetes Status: Chronic (6) Hypertension Status: Chronic Hospital Course - Lab Results Lab Results: Micro Results 02/24/17 10:30 Urine,Clean Catch Urine Culture - Final Beta Hemolytic Strep Group B Most Recent Lab Values WBC 5.9 K/uL (4.8-10.8) 02/28/17 06:54 RBC 3.17 Mil/uL (3.80-5.20) L 02/28/17 06:54 Hgb 8.8 g/dL (12.0-16.0) L 02/28/17 06:54 Hct 26.7 % (34.0-47.0) L 02/28/17 06:54 MCV 84.0 fl (81.0-99.0) 02/28/17 06:54 MCH 27.9 pg (27.0-31.0) 02/28/17 06:54 MCHC 33.2 g/dL (33.0-37.0) 02/28/17 06:54 RDW 15.4 % (11.5-14.5) H 02/28/17 06:54 Plt Count 306 K/uL (130-400) 02/28/17 06:54 MPV 8.4 fl (7.2-11.7) 02/28/17 06:54 Neut % (Auto) 54.2 % (50.0-75.0) 02/28/17 06:54 Lymph % (Auto) 32.6 % (20.0-40.0) 02/28/17 06:54 [place] % (Auto) 10.0 % (0.0-10.0) 02/28/17 06:54 Eos % (Auto) 2.6 % (0.0-4.0) 02/28/17 06:54 Baso % (Auto) 0.6 % (0.0-2.0) 02/28/17 06:54 Neut # 3.2 K/uL (1.8-7.0) 02/28/17 06:54 Lymph # 1.9 K/uL (1.0-4.3) 02/28/17 06:54 [place] # 0.6 K/uL (0.0-0.8) 02/28/17 06:54 Eos # 0.2 K/uL (0.0-0.7) 02/28/17 06:54 Baso # 0.0 K/uL (0.0-0.2) 02/28/17 06:54 Sodium 142 mmol/l (132-148) 02/28/17 06:54 Potassium 3.6 MMOL/L (3.6-5.0) 02/28/17 06:54 Chloride 110 mmol/L (98-107) H 02/28/17 06:54 Carbon Dioxide 28 mmol/L (22-30) 02/28/17 06:54 Anion Gap 8 (10-20) L 02/28/17 06:54 BUN 16 mg/dl (7-17) 02/28/17 06:54 Creatinine 1.6 mg/dL (0.7-1.2) H 02/28/17 06:54 Est GFR ( Amer) 37 02/28/17 06:54 Est GFR (Non-Af Amer) 31 02/28/17 06:54 POC Glucose (mg/dL) 343 mg/dL (65-110) H 02/27/17 20:25 Random Glucose 142 mg/dL (65-105) H 02/28/17 06:54 Calcium 9.6 mg/dL (8.4-10.2) 02/28/17 06:54 Phosphorus 2.2 mg/dl (2.5-4.5) L 02/22/17 06:51 Magnesium 2.0 MG/DL (1.6-2.3) 02/28/17 06:54 Urine Color Yellow (YELLOW) 02/23/17 23:50 Urine Clarity Cloudy (Clear) 02/23/17 23:50 Urine pH 7.0 (5.0-8.0) 02/23/17 23:50 Ur Specific [place] < 1.005 (1.003-1.030) 02/23/17 23:50 Urine Protein Negative mg/dL (NEGATIVE) 02/23/17 23:50 Urine Glucose (UA) >=500 mg/dL (Normal) 02/23/17 23:50 Urine Ketones Negative mg/dL (NEGATIVE) 02/23/17 23:50 Urine Blood Moderate (NEGATIVE) 02/23/17 23:50 Urine Nitrate Negative (NEGATIVE) 02/23/17 23:50 Urine Bilirubin Negative (NEGATIVE) 02/23/17 23:50 Urine Urobilinogen 0.2-1.0 mg/dL (0.2-1.0) 02/23/17 23:50 Ur Leukocyte Esterase Large [place]avia/uL (Negative) 02/23/17 23:50 Urine RBC (Auto) 11 /hpf (0-3) H 02/23/17 23:50 Urine WBC Clumps (Auto) Few /hpf (NONE) H 02/23/17 23:50 Urine Microscopic WBC 218 /hpf (0-5) H 02/23/17 23:50 Urine Bacteria Occ (<OCC) H 02/23/17 23:50 Urine Yeast (Budding) Occ /hpf (NEGATIVE) H 02/23/17 23:50 - Hospital Course Hospital Course: 86 yr old F admitted to TCU for rehabilitation. Patient was transferred from [facility] where she was admitted for altered mental status secondary to metabolic encephalopathy due to acute on chronic kidney injury. Patient's kidneys recovered after 2 session of temporary hemodialysis. Her mentation has improved, she has PMHx of baseline dementia, CKD stage III-A, NIDDM, HTN and HLD. Patient is stable, calorie count is being recorded as patient has hx of poor PO intake During hospitalization, elevated accuucheck >500, asymptomatic. Insulin given via sliding scale. UA done positive for UTI. Urine culture taken with noted positive culture of 100k for E coli. Rocephin started and switched over to Ampicillin 500 g today.Family meeting held with daughter in regard to dispo. States daughter of patient will stay with her during the summer. Patient today denies any acute complaints: hematuria, dysuria, fever, chills, and flank pain. Vitals currently stable. Patient only alerted to person, not to time and place. Discharge Medications Remeron 30 mg qHS Norvasc 10 mg daily Lantus 15 mg SC Potassium Chloride 20 meq BID Discharge Exam - Head Exam Head Exam: ATRAUMATIC, NORMOCEPHALIC - Eye Exam Eye Exam: EOMI Pupil Exam: PERRL - ENT Exam ENT Exam: Mucous Membranes Moist - Neck Exam Neck exam: Full Rom - Respiratory Exam Respiratory Exam: Clear to PA & Lateral, NORMAL BREATHING PATTERN - Cardiovascular Exam Cardiovascular Exam: REGULAR RHYTHM, +S1, +S2 - GI/Abdominal Exam GI & Abdominal Exam: Normal Bowel Sounds, Soft, Tenderness. absent: Guarding, Rebound - Extremities Exam Extremities exam: full ROM, normal inspection - Back Exam Back exam: absent: CVA tenderness (L), CVA tenderness (R) - Neurological Exam Neurological exam: Alert, Oriented x3 - Psychiatric Exam Psychiatric exam: Normal Affect, Normal Mood - Skin Skin Exam: Dry, Normal Color, Warm Discharge Plan - Discharge Medications Prescriptions: amLODIPine [Norvasc] 10 mg PO DAILY #30 tab amLODIPine [Norvasc] 10 mg PO DAILY #30 tab Ampicillin 500 mg PO Q6 #24 cap Insulin Glargine, Recombina [Lantus] 15 unit SC HS #1 ml Mirtazapine [Remeron] 30 mg PO HS #30 tab Potassium Chloride [K-Dur 20 mEq ER Tab] 20 meq PO BID #15 tab - Follow Up Plan Condition: GOOD Disposition: HOME/ ROUTINE Instructions: Acute Kidney Injury (DC), Urinary Tract Infection in Women (DC) Additional Instructions: Patient to follow up with Dr. Barron on 03/26/17@ 8:40 AM Patient to follow up with Nephrology in 4-6 weeks Take medication as directed Monitor accuchecks Return to ED if symptoms worsen or regress Repeat Basic Metabolic panel lab in 1 week for repeat potassium Referrals: Oswaldo Louise MD [Staff Provider] - Helena Barron MD [Family Provider] -
== END 2017-02-28 13:30 | disposition home or self-care (01) | DRG 683 ==
LOC: H.TCU 17:46
PROVIDERS: ADMIT Family Medicine Geriatric Medicine; ATTEND Family Medicine Geriatric Medicine
PROC: F08Z4ZZ Home Management Treatment (ICD-10-PCS; principal; 2017-02-19)
PROC: F07Z9FZ Gait Training/Functional Ambulation Treatment using Assistive, Adaptive, Supportive or Protective Equipment (ICD-10-PCS; 2017-02-19)
PROC: F07L6FZ Therapeutic Exercise Treatment of Musculoskeletal System - Lower Back / Lower Extremity using Assistive, Adaptive, Supportive or Protective Equipment (ICD-10-PCS; 2017-02-19)
PROC: F07K6FZ Therapeutic Exercise Treatment of Musculoskeletal System - Upper Back / Upper Extremity using Assistive, Adaptive, Supportive or Protective Equipment (ICD-10-PCS; 2017-02-19)
DX: N17.9 Acute kidney failure, unspecified (principal); N39.0 Urinary tract infection, site not specified; E10.22 Type 1 diabetes mellitus with diabetic chronic kidney disease; F03.90 Unspecified dementia, unspecified severity, without behavioral disturbance, psychotic disturbance, mood disturbance, and anxiety; E10.65 Type 1 diabetes mellitus with hyperglycemia; D69.6 Thrombocytopenia, unspecified; E87.5 Hyperkalemia; I12.9 Hypertensive chronic kidney disease with stage 1 through stage 4 chronic kidney disease, or unspecified chronic kidney disease; N18.3 Chronic kidney disease, stage 3 (moderate); D63.1 Anemia in chronic kidney disease; B95.1 Streptococcus, group B, as the cause of diseases classified elsewhere; E78.5 Hyperlipidemia, unspecified; L60.8 Other nail disorders

== ENCOUNTER 2017-06-18 08:51 | Inpatient (IN) | payer MEDICARE, BC ==
--- NOTE | 2017-06-18 09:22 | ED PDOC ---
Lower Extremity Pain/Injury Time Seen by Provider: 06/18/17 09:00 Chief Complaint (Nursing): Lower Extremity Problem/Injury History Per: Patient Onset/Duration Of Symptoms: Days (2) Current Symptoms Are (Timing): Still Present Severity: Mild Pain Scale Rating Of: 0 Additional Complaint(s): Right ankle and right calf swelling noticed yesterday. Denies chest pain or SOB. No ankle injury noted Past Medical History Vital Signs: Last Vital Signs Temp 97.0 F L 06/18/17 09:02 Pulse 91 H 06/18/17 09:02 Resp 20 06/18/17 09:02 BP 157/71 H 06/18/17 09:02 Pulse Ox 97 06/18/17 09:02 - Medical History PMH: Anemia, Dementia, Diabetes, HTN Denies: HIV, Chronic Kidney Disease - Family History Family History: States: Unknown Family Hx - Home Medications Home Medications: Ambulatory Orders Medication Instructions Recorded Potassium Chloride [K-Dur 20 mEq 20 meq PO DAILY tab 02/19/17 ER Tab] Ampicillin 500 mg PO Q6 #24 cap 02/28/17 Insulin Glargine, Recombina 15 unit SC HS #1 ml 02/28/17 [Lantus] Mirtazapine [Remeron] 30 mg PO HS #30 tab 02/28/17 Potassium Chloride [K-Dur 20 mEq 20 meq PO BID #15 tab 02/28/17 ER Tab] amLODIPine [Norvasc] 10 mg PO DAILY #30 tab 02/28/17 amLODIPine [Norvasc] 10 mg PO DAILY #30 tab 02/28/17 - Allergies Allergies/Adverse Reactions: Allergies Allergy/AdvReac Type Severity Reaction Status Date / Time No Known Allergies Allergy Verified 02/12/17 00:27 Review of Systems ROS Statement: Except As Marked, All Systems Reviewed And Found Negative Musculoskeletal: Positive for: Other (Ankle swelling) Physical Exam - Reviewed Nursing Documentation Reviewed: Yes Vital Signs Reviewed: Yes - Physical Exam Appears: Positive for: Well, Non-toxic, No Acute Distress Head Exam: Positive for: ATRAUMATIC, NORMAL INSPECTION, NORMOCEPHALIC Skin: Positive for: Normal Color, Warm, DRY Eye Exam: Positive for: EOMI, Normal appearance, PERRL ENT: Positive for: Normal ENT Inspection Neck: Positive for: Normal, Painless ROM Cardiovascular/Chest: Positive for: Regular Rate, Rhythm Respiratory: Positive for: CNT, Normal Breath Sounds Gastrointestinal/Abdominal: Positive for: Normal Exam, Bowel Sounds, Soft Back: Positive for: Normal Inspection Extremity: Positive for: Normal ROM, Swelling. Negative for: Tenderness, Calf Tenderness Neurologic/Psych: Positive for: Alert, Oriented - Laboratory Results Result Diagrams: 06/18/17 09:41 06/18/17 10:46 - ECG O2 Sat by Pulse Oximetry: 97 Disposition - Clinical Impression Clinical Impression: CHF (congestive heart failure) - Patient ED Disposition Is Patient to be Admitted: Yes - Disposition Disposition Time: 11:51 Condition: FAIR Forms: [email or web address] ([place]) - Pt Status Changed To: Hospital Disposition Of: Observation - POA Present On Arrival: None
[2017-06-18 09:46] LABS: BASO % 0.6 % (0.0-2.0); EOS # 0.1 K/uL (0.0-0.7); EOS % 1.7 % (0.0-4.0); LYMPH # 1.3 K/uL (1.0-4.3); LYMPH % 20.6 % (20.0-40.0); MEAN CORPUSCULAR HEMOGLOBIN 26.5 pg (27.0-31.0); MEAN CORPUSCULAR HGB CONC 32.3 g/dL (33.0-37.0); MEAN PLATELET VOLUME 8.9 fl (7.2-11.7); MONO # 0.5 K/uL (0.0-0.8); NEUT # 4.5 K/uL (1.8-7.0); NEUT % 69.1 % (50.0-75.0); NRBC % 0.1 % (0.0-0.0); RED CELL DISTRIBUTION WIDTH 14.4 % (11.5-14.5); WHITE BLOOD COUNT 6.5 K/uL (4.8-10.8)
--- NOTE | 2017-06-18 10:25 | US ---
PROCEDURE: Right lower extremity venous duplex Doppler. HISTORY: r/o DVT COMPARISON: None available. TECHNIQUE: Common femoral, superficial femoral, popliteal and posterior tibial veins were evaluated. Flow was assessed with color Doppler, compressibility, assessment of phasic flow and augmentation response. FINDINGS: COMMON FEMORAL VEIN: Unremarkable. SUPERFICIAL FEMORAL VEIN: Unremarkable. POPLITEAL VEIN: Unremarkable. POSTERIOR TIBIAL VEIN: Unremarkable. OTHER FINDINGS: There is diffuse subcutaneous edema in the calf. IMPRESSION: No evidence of deep venous thrombosis in the right lower extremity.
[2017-06-18 11:20] LABS: ALB/GLOB RATIO 1.1 (1.0-2.1); BILIRUBIN,TOTAL 0.4 mg/dl (0.2-1.3); CALCIUM 9.9 mg/dL (8.4-10.2); TOTAL PROTEIN 7.8 G/DL (6.3-8.2)
[2017-06-18 11:24] LABS: POTASSIUM 5.2 MMOL/L (3.6-5.0)
--- NOTE | 2017-06-18 11:48 | RAD ---
PROCEDURE: Right Ankle Radiographs. HISTORY: swelling COMPARISON: None FINDINGS: BONES: There is diffuse bone demineralization. There is no acute displaced fracture or bone destruction. JOINTS: Normal. No osteoarthritis. Ankle mortise maintained. Talar dome intact SOFT TISSUES: There is mild periarticular soft tissue swelling, worse in the medial soft tissues. OTHER FINDINGS: None. IMPRESSION: No acute fracture or dislocation.
--- NOTE | 2017-06-18 11:50 | RAD ---
HISTORY: COMPARISON: 02/12/2017. TECHNIQUE: Chest PA and lateral FINDINGS: LINES AND TUBES: None. LUNG AND PLEURA: There is severe pulmonary venous congestion and mild interstitial pulmonary edema. No focal consolidation. There is bibasilar atelectasis. HEART AND MEDIASTINUM: There is borderline cardiomegaly and prominent central vasculature. The hilar and mediastinal contours are within normal limits. SKELETAL STRUCTURES: The bony structures are within normal limits for the patient's age. VISUALIZED UPPER ABDOMEN: Normal. OTHER FINDINGS: None. IMPRESSION: Mild cardiomegaly and severe pulmonary venous congestion with mild interstitial pulmonary edema.
--- NOTE | 2017-06-18 12:36 | CP.PCM.HP ---
History of Present Illness - History of Present Illness History of Present Illness: 86 Female with PMH with baseline Dementia, HTN and DM comes to [facility] for CHF exacerbation. Pt was brought to ED by her son and daughter who are present by bedside. Pt states that her legs have been swelling for the past 3/4 days, "my legs are normally skinny." No recent hx of falls, pt is an avid walker and per daughter present by bedside why states that her mother lives by herself and walks a lot without being short of breath. Denies chest pain, dyspnea, palpitations, fever, chills, n/v/d/c. of note, pt lives alone but her son and daughter come by everyday to take of pt. States that she takes her meds on time everyday. Has a hx of similar leg swelling in her ankles a few years ago but it resolved. No CHF dx in past. In the ED: Pt was given 20mg IVP Lasix pt responding to treatment. Chest xray appreciated, mild cardiomegaly and severe pulmonary venous congestion lower extremity u/s appreciated, no DVT noted Ankle xray appreciated no fx noted ECG; normal sinus with rate of 77, no ST changes (read by me) Present on Admission - Present on Admission Any Indicators Present on Admission: Yes History of DVT/PE: No Review of Systems - Review of Systems Systems not reviewed;Unavailable: Dementia Review of Systems: friendly, smiling - Constitutional Constitutional: absent: Chills, Fever, Headache, Malaise - Cardiovascular Cardiovascular: Leg Edema, Pedal Edema. absent: Chest Pain, Dyspnea, Leg Ulcers , Palpitations - Respiratory Respiratory: absent: Cough, Dyspnea, Wheezing - Gastrointestinal Gastrointestinal: absent: Abdominal Pain, Change in Stool Character, Constipation, Diarrhea - Genitourinary Genitourinary: absent: Change in Urinary Stream, Difficulty Urinating, Dysuria - Musculoskeletal Musculoskeletal: absent: Abnormal Gait - Neurological Neurological: absent: Numbness, Headaches, Tingling Past Patient History - Past Medical History & Family History Past Medical History?: Yes - Past Social History Smoking Status: Never Smoked Alcohol: None Home Situation {Lives}: Alone (Daughter and Son come by to help pt with daily activities ) - CARDIAC Hx Hypertension: Yes - PULMONARY Hx Respiratory Disorders: No - NEUROLOGICAL Hx Dementia: Yes - HEENT Hx HEENT Problems: No - RENAL Hx Chronic Kidney Disease: No - ENDOCRINE/METABOLIC Hx Diabetes Mellitus Type 1: Yes - HEMATOLOGICAL/ONCOLOGICAL Hx Anemia: Yes Hx Human Immunodeficiency Virus (HIV): No - INTEGUMENTARY Hx Dermatological Problems: No - MUSCULOSKELETAL/RHEUMATOLOGICAL Hx Musculoskeletal Disorders: No Hx Falls: No - GASTROINTESTINAL Hx Gastrointestinal Disorders: No - GENITOURINARY/GYNECOLOGICAL Hx Genitourinary Disorders: No - PSYCHIATRIC Hx Psychophysiologic Disorder: No Hx Substance Use: No - SURGICAL HISTORY Hx Surgeries: No - ANESTHESIA Hx Anesthesia: No Hx Anesthesia Reactions: No Hx Malignant Hyperthermia: No Meds Allergies/Adverse Reactions: Allergies Allergy/AdvReac Type Severity Reaction Status Date / Time No Known Allergies Allergy Verified 02/12/17 00:27 Physical Exam - Constitutional Appears: Well, No Acute Distress - Head Exam Head Exam: ATRAUMATIC, NORMAL INSPECTION, NORMOCEPHALIC - Eye Exam Eye Exam: EOMI, Normal appearance - ENT Exam ENT Exam: Mucous Membranes Moist - Neck Exam Neck exam: Positive for: Full Rom, Normal Inspection - Respiratory Exam Respiratory Exam: Wheezes (and crackles heard b/l in the lower lobes ), NORMAL BREATHING PATTERN. absent: Accessory Muscle Use, Chest Wall Tenderness - Cardiovascular Exam Cardiovascular Exam: REGULAR RHYTHM, +S1, +S2 - GI/Abdominal Exam GI & Abdominal Exam: Distended (minimally distended, pt states that she needs to urinate ), Normal Bowel Sounds, Soft. absent: Tenderness - Extremities Exam Extremities exam: Positive for: pedal edema (b/l 2+ pitting edema present R up to the mid-thigh (1+ knee to mid-thigh and 2+ up to the knees), L 2+ pitting edema up to the knees), pedal pulses present. Negative for: calf tenderness, tenderness - Back Exam Back exam: NORMAL INSPECTION. absent: CVA tenderness (L), CVA tenderness (R) - Neurological Exam Neurological exam: Alert, Oriented x3 - Psychiatric Exam Psychiatric exam: Normal Affect, Normal Mood - Skin Skin Exam: Dry, Normal Color Results - Vital Signs Recent Vital Signs: Last Vital Signs Temp 97.0 F L 06/18/17 09:02 Pulse 89 06/18/17 12:10 Resp 18 06/18/17 12:10 BP 145/77 06/18/17 12:10 Pulse Ox 99 06/18/17 12:10 - Labs Result Diagrams: 06/18/17 09:41 06/18/17 10:46 Labs: Laboratory Results - last 24 hr 06/18/17 06/18/17 06/18/17 09:41 10:46 10:46 WBC 6.5 RBC 4.15 Hgb 11.0 L Hct 34.0 MCV 82.0 D MCH 26.5 L MCHC 32.3 L RDW 14.4 Plt Count 253 MPV 8.9 Neut % (Auto) 69.1 Lymph % (Auto) 20.6 [place] % (Auto) 8.0 Eos % (Auto) 1.7 Baso % (Auto) 0.6 Neut # 4.5 Lymph # 1.3 [place] # 0.5 Eos # 0.1 Baso # 0.0 PT 11.2 INR 1.0 Sodium 146 Potassium 5.2 H Chloride 111 H Carbon Dioxide 27 Anion Gap 13 BUN 16 Creatinine 1.2 Est GFR ( Amer) 52 Est GFR (Non-Af Amer) 43 Random Glucose 73 Calcium 9.9 Total Bilirubin 0.4 AST 46 H ALT 41 Alkaline Phosphatase 101 NT-Pro-B Natriuret Pep 467 Total Protein 7.8 Albumin 4.0 Globulin 3.8 Albumin/Globulin Ratio 1.1 - EKG Data EKG Interpreted by: Myself EKG shows normal: Sinus rhythm Rate: Normal (Normal sinus rhthm, with rate of 77, no ST changes ) Assessment & Plan - Assessment and Plan (Free Text) Assessment: 86 YO AA Female with PMH of baseline dementia, HTN and DM I is admitted for acute CHF. 1. Acute CHF, no previous diagnosis of CHF. Cannot distinguish b/l systolic vs diastolic at this time. -bnp 467 -sodium restricted diet -daily weight -limit fluid intake -Lasix IV 40mg daily -Chest x-ray appreciated, mild cardiomegaly and severe pulmonary venous congestion with mild interstitial pulmonary edema. -echo tomorrow AM 2. HTN -stable -continue home meds, amlodipine 3. DM type I -continue home meds insulin, metformin and Januvia -low correcting dose -ACHS glucose check -hypoglycemia protocol in place 4. Diet -diabetic diet, heart healthy 5. DVT prop -Lovenox 40mg daily
[2017-06-18] MEDS ORDERED: Glucagon Recombinant 1 mg Inj IM PRN ×2 (13:49→13:54)
[2017-06-18] MEDS ORDERED: Dextrose 50% SYRINGE Inj (50 ml) IV PRN ×2 (13:49→13:54)
--- NOTE | 2017-06-18 13:50 | CARD ---
APPROVED REPORT EKG Measurement Heart [id number] <Conclusion> Normal sinus rhythm Nonspecific T wave abnormality Abnormal ECG
[2017-06-18] MEDS ORDERED: Patient's Own Med (Sitagliptin Phos/Metformin Hcl [Janumet 50-1,000 Mg Tablet] 1 TAB) PO SCH (17:00)
[2017-06-18 17:06] VITALS: BMI 32.4
[2017-06-18] MEDS: Insulin Regular 100 units/ml SC SCH ×2 (17:45→22:00)
[2017-06-18] MEDS ORDERED: Patient's Own Med (Insulin Glargine, Recombina [Lantus] 30 UNIT) SC SCH (18:00)
[2017-06-18] MEDS ORDERED: Insulin Detemir 100 Units/ml Inj SC SCH (22:00)
[2017-06-19 05:30] LABS: ALB/GLOB RATIO 1.1 (1.0-2.1); BILIRUBIN,TOTAL 0.3 mg/dl (0.2-1.3); CALCIUM 9.4 mg/dL (8.4-10.2); POTASSIUM 3.7 MMOL/L (3.6-5.0); TOTAL PROTEIN 6.8 G/DL (6.3-8.2)
[2017-06-19 05:36] LABS: BASO % 0.6 % (0.0-2.0); EOS # 0.2 K/uL (0.0-0.7); EOS % 2.5 % (0.0-4.0); HEMATOCRIT 34.6 % (34.0-47.0); LYMPH # 1.8 K/uL (1.0-4.3); LYMPH % 26.5 % (20.0-40.0); MEAN CELL VOLUME 81.6 fl (81.0-99.0); MEAN CORPUSCULAR HGB CONC 31.9 g/dL (33.0-37.0); MEAN PLATELET VOLUME 9.1 fl (7.2-11.7); MONO # 0.6 K/uL (0.0-0.8); MONO % 8.4 % (0.0-10.0); NEUT # 4.2 K/uL (1.8-7.0); RED CELL DISTRIBUTION WIDTH 14.6 % (11.5-14.5); WHITE BLOOD COUNT 6.9 K/uL (4.8-10.8)
[2017-06-19] MEDS: Insulin Regular 100 units/ml SC SCH ×4 (08:16→22:04)
[2017-06-19] MEDS: Enoxaparin 40 mg Syringe SC SCH (08:18)
--- NOTE | 2017-06-19 15:37 | CP.PCM.PN ---
Subjective - Date & Time of Evaluation Date of Evaluation: 06/19/17 Time of Evaluation: 09:30 - Subjective Subjective: HD 2 86 YO Female admitted for CHF. S: No acute overnight events. Pt seen and examined. Pt feels well and states that her legs are "skinnier then yesterday." Denies chest pain, dyspnea, palpitations, n/v/d/c and remains afebrile. Objective - Vital Signs/Intake and Output Vital Signs (last 24 hours): Temp Pulse Resp BP Pulse Ox 97.4 F L 79 20 158/74 H 97 06/19/17 12:00 06/19/17 12:00 06/19/17 12:00 06/19/17 12:00 06/19/17 12:00 - Medications Medications: Current Medications Amlodipine Besylate (Norvasc) 10 mg PO DAILY [facility] Last Admin: 06/19/17 08:17 Dose: 10 mg Aspirin (Ecotrin) 81 mg PO DAILY [facility] Last Admin: 06/19/17 08:13 Dose: 81 mg Dextrose (Dextrose 50% Inj) 0 ml IV STAT PRN; Protocol PRN Reason: Hyglycemia Protocol Dextrose (Glutose 15) 0 gm PO ONCE PRN; Protocol PRN Reason: Hypoglycemia Protocol Dextrose (Dextrose 50% Inj) 0 ml IV STAT PRN; Protocol PRN Reason: Hyglycemia Protocol Dextrose (Glutose 15) 0 gm PO ONCE PRN; Protocol PRN Reason: Hypoglycemia Protocol Enoxaparin Sodium (Lovenox) 40 mg SC DAILY [facility] PRN Reason: Protocol Last Admin: 06/19/17 08:18 Dose: 40 mg Furosemide (Lasix) 40 mg IVP DAILY [facility] Last Admin: 06/19/17 08:17 Dose: 40 mg Glucagon (Glucagen Diagnostic Kit) 0 mg IM STAT PRN; Protocol PRN Reason: Hypoglycemia Protocol Glucagon (Glucagen Diagnostic Kit) 0 mg IM STAT PRN; Protocol PRN Reason: Hypoglycemia Protocol Home Med (Insulin Glargine, Recombina [Lantus]) 30 unit SC QPM [facility] Home Med (Sitagliptin Phos/Metformin Hcl [Janumet 50-1,000 Mg Tablet]) 1 tab PO BID [facility] Insulin Detemir (Levemir) 30 units SC QPM [facility] Last Admin: 06/18/17 22:00 Dose: Not Given Insulin Human Regular (Humulin R) 0 units SC ACHS [facility] PRN Reason: Protocol Last Admin: 06/19/17 13:21 Dose: 2 units Metformin HCl (Glucophage) 1,000 mg PO BID [facility] Last Admin: 06/19/17 08:15 Dose: 1,000 mg Mirtazapine (Remeron) 30 mg PO HS [facility] Last Admin: 06/18/17 22:07 Dose: 30 mg Sitagliptin Phosphate (Januvia) 50 mg PO BID [facility] Last Admin: 06/19/17 08:16 Dose: 50 mg - Labs Labs: 06/19/17 04:10 06/19/17 04:10 PT 11.2 Seconds (9.8-13.1) 06/18/17 10:46 INR 1.0 (0.9-1.2) 06/18/17 10:46 - Constitutional Appears: No Acute Distress, Other (apphears stated age, looks comfortable ) - Head Exam Head Exam: ATRAUMATIC, NORMAL INSPECTION, NORMOCEPHALIC - Eye Exam Eye Exam: EOMI, Normal appearance, PERRL - ENT Exam ENT Exam: Mucous Membranes Moist, Normal Exam - Neck Exam Neck Exam: Full ROM - Respiratory Exam Respiratory Exam: Clear to Ausculation Bilateral, NORMAL BREATHING PATTERN. absent: Wheezes - Cardiovascular Exam Cardiovascular Exam: REGULAR RHYTHM, +S1, +S2 - GI/Abdominal Exam GI & Abdominal Exam: Soft, Normal Bowel Sounds. absent: Distended, Tenderness - Extremities Exam Extremities Exam: Full ROM, Pedal Edema (pt has some romaine dermatitis, b/l pedal edema 2+ up to the knees. ). absent: Calf Tenderness - Back Exam Back Exam: NORMAL INSPECTION. absent: CVA tenderness (L), CVA tenderness (R) - Neurological Exam Neurological Exam: Alert, Awake, Normal Gait (pt seen walking in the room.) - Psychiatric Exam Psychiatric exam: Normal Affect, Normal Mood - Skin Skin Exam: Dry, Intact, Normal Color, Warm Assessment and Plan - Assessment and Plan (Free Text) Assessment: Assessment/Plan: 86 YO AA Female with PMH of baseline dementia, HTN and DM I is admitted for acute CHF. LE edema is improving. 1. Acute CHF, no previous diagnosis of CHF. Cannot distinguish b/l systolic vs diastolic at this time. -bnp 467 -sodium restricted diet -daily weight -limit fluid intake -Lasix IV 40mg daily -Chest x-ray appreciated, mild cardiomegaly and severe pulmonary venous congestion with mild interstitial pulmonary edema. -pending official echo report 2. HTN -stable -continue home meds, amlodipine 3. DM type I -continue home meds insulin, metformin and Januvia -low correcting dose -[facility] glucose check -hypoglycemia protocol in place 4. Diet -diabetic diet, heart healthy 5. DVT prop -Lovenox 40mg daily Dispo D/c to home tomorrow with follow up with PCP.
[2017-06-19] MEDS ORDERED: Insulin Detemir 100 Units/ml Inj SC SCH (18:11)
--- NOTE | 2017-06-19 18:20 | CARD ---
APPROVED REPORT EXAM: Two-dimensional and M-mode echocardiogram with Doppler and color Doppler. Other Information Quality : GoodRhythm : NSR INDICATION Congestive Heart Failure 2D DIMENSIONS IVSd1.37 (0.7-1.1cm)LVDd4.22 (3.9-5.9cm) LVOT Diameter1.91 (1.8-2.4cm)PWd1.06 (0.7-1.1cm) IVSs1.83 (0.8-1.2cm)LVDs1.79 (2.5-4.0cm) FS (%) 57.5 %PWs1.88 (0.8-1.2cm) M-Mode DIMENSIONS Left Atrium (MM)3.53 (2.5-4.0cm)IVSd1.16 (0.7-1.1cm) Aortic Root2.98 (2.2-3.7cm)LVDd4.88 (4.0-5.6cm) Aortic Cusp Exc.1.68 (1.5-2.0cm)PWd1.05 (0.7-1.1cm) IVSs1.74 cmFS (%) 54 % LVDs2.23 (2.0-3.8cm)PWs1.49 cm Mitral Valve MV E Zjldkivn89.0cm/sMV DECEL [id number] A Rcvdspyd91.6cm/s MV YKA30lbH/A ratio1.2MVA (PHT)3.81cm2 TDI Lateral E' Peak V8.47cm/sMedial E' Peak V5.54cm/sE/Lateral E'11.6 E/Medial E'17.7 Pulmonary Valve PV Peak Kyjsansr47.8cm/s Tricuspid Valve TR Peak Akhzwkhe200uk/sRAP [id number] Peak Gr.24mmHg [id number] LEFT VENTRICLE The left ventricle is normal size. There is mild concentric left ventricular hypertrophy. Left ventricle systolic function is normal. The Ejection Fraction is 65-70%. There is normal LV segmental wall motion. Transmitral Doppler flow pattern is Grade I-abnormal relaxation pattern. RIGHT VENTRICLE The right ventricle is normal size. There is normal right ventricular wall thickness. The right ventricular systolic function is normal. ATRIA The left atrium size is normal. The right atrium size is normal. AORTIC VALVE The aortic valve is normal in structure and function. No aortic regurgitation is present. There is no aortic valvular stenosis. MITRAL VALVE A tiny echodense body (approx 3-4mm in diameter) was seen attached to the anterior mitral leaflet (? calcified old vegetation ?myxomatous nodule) There is no evidence of mitral valve prolapse. There is no mitral valve stenosis. Mitral regurgitation is mild. TRICUSPID VALVE The tricuspid valve is normal in structure. There is mild tricuspid regurgitation. Right ventricular systolic pressure is estimated at 38 mmHg. There is mild pulmonary hypertension. PULMONIC VALVE The pulmonary valve is normal in structure and function. There is no pulmonic valvular regurgitation. GREAT VESSELS The aortic root is normal in size. The IVC is normal in size and collapses >50% with inspiration. PERICARDIAL EFFUSION The pericardium appears normal. <Conclusion> The left ventricle is normal size. There is mild concentric left ventricular hypertrophy. There is normal LV segmental wall motion. Left ventricle systolic function is normal. The Ejection Fraction is 65-70%. Transmitral Doppler flow pattern is Grade I-abnormal relaxation pattern. A tiny echodense body (approx 3-4mm in diameter) was seen attached to the anterior mitral leaflet (? calcified old vegetation ?myxomatous nodule) DORON may fully evaluate this finding.
--- NOTE | 2017-06-19 21:34 | CP.PCM.PCO ---
Summary - Summary of Event Summary of Event: S: pt has been walking the hallways, confused, pt states she is not in the hospital, would like to return to her Apt# [id number] O: VS reviewed, afebrile Neuro: AAO to person A/P: 86yo F admitted for CHF exacerbation with new onset confusion likely 2/2 to delirium -orient pt to person and place -1:1 obs, moved closer to nursing station -contacted son Paulino Sears, updated on pt status, son came to room and oriented pt to place -haldol 0.5mg IM q4hr prn for agitation -accucheck -will consider psych c/s and consider seroquel if not improved
[2017-06-20] MEDS: Insulin Regular 100 units/ml SC SCH ×2 (08:35→12:55)
[2017-06-20] MEDS: Enoxaparin 40 mg Syringe SC SCH (08:39)
--- NOTE | 2017-06-20 12:29 | CP.PCM.PN ---
Subjective - Date & Time of Evaluation Date of Evaluation: 06/20/17 Time of Evaluation: 12:28 - Subjective Subjective: HD 3 86 YO female admitted for CHF S: Last night pt was found wondering in the hallway, confused. Pt was given haldol 0.5mg and she was able to sleep. This morning pt states that she does not remember walking around last night. She states that she feels fine. Son by bedside. Denies chest pain, palpatations, dyspnea, n/v/d/c and remains afebrile. Objective - Vital Signs/Intake and Output Vital Signs (last 24 hours): Temp Pulse Resp BP Pulse Ox 97.7 F 82 20 135/78 94 L 06/20/17 08:58 06/20/17 08:58 06/20/17 08:58 06/20/17 08:58 06/20/17 08:58 - Medications Medications: Current Medications Amlodipine Besylate (Norvasc) 10 mg PO DAILY [facility] Last Admin: 06/20/17 08:40 Dose: 10 mg Aspirin (Ecotrin) 81 mg PO DAILY [facility] Last Admin: 06/20/17 08:40 Dose: 81 mg Dextrose (Dextrose 50% Inj) 0 ml IV STAT PRN; Protocol PRN Reason: Hyglycemia Protocol Dextrose (Glutose 15) 0 gm PO ONCE PRN; Protocol PRN Reason: Hypoglycemia Protocol Dextrose (Dextrose 50% Inj) 0 ml IV STAT PRN; Protocol PRN Reason: Hyglycemia Protocol Dextrose (Glutose 15) 0 gm PO ONCE PRN; Protocol PRN Reason: Hypoglycemia Protocol Enoxaparin Sodium (Lovenox) 40 mg SC DAILY [facility] PRN Reason: Protocol Last Admin: 06/20/17 08:39 Dose: 40 mg Furosemide (Lasix) 40 mg IVP DAILY [facility] Last Admin: 06/20/17 08:40 Dose: 40 mg Glucagon (Glucagen Diagnostic Kit) 0 mg IM STAT PRN; Protocol PRN Reason: Hypoglycemia Protocol Glucagon (Glucagen Diagnostic Kit) 0 mg IM STAT PRN; Protocol PRN Reason: Hypoglycemia Protocol Haloperidol Lactate (Haldol) 0.5 mg IVP Q6 PRN PRN Reason: Agitation Home Med (Insulin Glargine, Recombina [Lantus]) 30 unit SC QPM [facility] Home Med (Sitagliptin Phos/Metformin Hcl [Janumet 50-1,000 Mg Tablet]) 1 tab PO BID [facility] Insulin Detemir (Levemir) 15 units SC QPM [facility] Insulin Human Regular (Humulin R) 0 units SC ACHS [facility] PRN Reason: Protocol Last Admin: 06/20/17 08:35 Dose: Not Given Metformin HCl (Glucophage) 1,000 mg PO BID [facility] Last Admin: 06/20/17 08:40 Dose: 1,000 mg Mirtazapine (Remeron) 30 mg PO HS [facility] Last Admin: 06/19/17 21:27 Dose: Not Given Sitagliptin Phosphate (Januvia) 50 mg PO BID [facility] Last Admin: 06/20/17 08:40 Dose: 50 mg - Labs Labs: 06/19/17 04:10 06/19/17 04:10 PT 11.2 Seconds (9.8-13.1) 06/18/17 10:46 INR 1.0 (0.9-1.2) 06/18/17 10:46 - Constitutional Appears: Non-toxic, No Acute Distress - Head Exam Head Exam: ATRAUMATIC, NORMAL INSPECTION, NORMOCEPHALIC - Eye Exam Eye Exam: EOMI, Normal appearance, PERRL - ENT Exam ENT Exam: Mucous Membranes Moist - Neck Exam Neck Exam: Full ROM, Normal Inspection - Respiratory Exam Respiratory Exam: Clear to Ausculation Bilateral, NORMAL BREATHING PATTERN. absent: Wheezes - Cardiovascular Exam Cardiovascular Exam: REGULAR RHYTHM, +S1, +S2 - GI/Abdominal Exam GI & Abdominal Exam: Soft, Normal Bowel Sounds. absent: Guarding, Tenderness - Extremities Exam Extremities Exam: Full ROM, Pedal Edema. absent: Calf Tenderness Additional comments: has 1+ edema b/l up to the knees. - Back Exam Back Exam: NORMAL INSPECTION. absent: CVA tenderness (L), CVA tenderness (R) - Neurological Exam Neurological Exam: Alert, Awake, Normal Gait (seen walking around her room ) - Psychiatric Exam Psychiatric exam: Normal Affect, Normal Mood (looks happy ) - Skin Skin Exam: Dry, Intact, Normal Color, Warm Assessment and Plan - Assessment and Plan (Free Text) Assessment: Assessment/Plan: 86 YO AA Female with PMH of baseline dementia, HTN and DM I is admitted for acute CHF. LE edema is improving. 1. Acute CHF, no previous diagnosis of CHF. Cannot distinguish b/l systolic vs diastolic at this time. -bnp 467 -sodium restricted diet -daily weight -limit fluid intake -Lasix IV 40mg daily -Chest x-ray appreciated, mild cardiomegaly and severe pulmonary venous congestion with mild interstitial pulmonary edema. -echo report appreciated, EF 65-70%, mild concentric hypertrophy, a tiny echodense body was seen attached to anterior mitral leaflet, DORON may fully evaluate this finding -Cardiology consulted, will follow up 2. Delirium -likely delirium 2/2 to dementia, and sundowning syndrome -pt placed at 1:1 and moved closer to nursing station -asymptomatic this AM -Haldol 0.5mg PRN for agitation 3. HTN -stable -continue home meds, amlodipine 4. DM type I -home insulin lowered 15 units, -continue metformin and Januvia -low correcting dose -[facility] glucose check -hypoglycemia protocol in place 5. Diet -diabetic diet, heart healthy 6. DVT prop -Lovenox 40mg daily
--- NOTE | 2017-06-20 14:53 | CP.PCM.CON ---
History of Present Illness - History of Present Illness History of Present Illness: ASKED TO SEE PT BY DR KENTON ROMAN FOR POSSIBLE ENDOCARDITIS. PT DENIES CP, SOB, FEVER,CHILLS,NIGHT SWEATS, N/V/D/C. B/C X 2 NEG, AND AFEBRILE. PT ADMITTED FOR KIMI, BNP WAS 400, US OF LE NEG FOR DVT, EF NML, LUNGS ARE CLEAR. PT HAS NO HX OF CAD OR SD. Past Patient History - Past Medical History & Family History Past Medical History?: Yes - Past Social History Smoking Status: Never Smoked - CARDIAC Hx Cardiac Disorders: Yes Hx Hypertension: Yes - PULMONARY Hx Respiratory Disorders: No - NEUROLOGICAL Hx Neurological Disorder: Yes Hx Dementia: Yes (Baseline) - HEENT Hx HEENT Problems: No - RENAL Hx Chronic Kidney Disease: No - ENDOCRINE/METABOLIC Hx Endocrine Disorders: Yes Hx Diabetes Mellitus Type 2: Yes - HEMATOLOGICAL/ONCOLOGICAL Hx Blood Disorders: Yes Hx AIDS: No Hx Anemia: Yes Hx Human Immunodeficiency Virus (HIV): No - INTEGUMENTARY Hx Dermatological Problems: No - MUSCULOSKELETAL/RHEUMATOLOGICAL Hx Musculoskeletal Disorders: No Hx Falls: No - GASTROINTESTINAL Hx Gastrointestinal Disorders: No - GENITOURINARY/GYNECOLOGICAL Hx Genitourinary Disorders: No - PSYCHIATRIC Hx Psychophysiologic Disorder: No Hx Substance Use: No - SURGICAL HISTORY Hx Surgeries: No - ANESTHESIA Hx Anesthesia: No Hx Anesthesia Reactions: No Hx Malignant Hyperthermia: No Has any member of the family had a problem w/ anesthesia?: No Meds Home Medications: Home Medication List Medication Instructions Recorded Confirmed Type Insulin Detemir [Levemir] 15 units SC QPM #1 vial 06/19/17 Rx Allergies/Adverse Reactions: Allergies Allergy/AdvReac Type Severity Reaction Status Date / Time No Known Allergies Allergy Verified 02/12/17 00:27 - Medications Medications: Current Medications Amlodipine Besylate (Norvasc) 10 mg PO DAILY [facility] Last Admin: 06/20/17 08:40 Dose: 10 mg Aspirin (Ecotrin) 81 mg PO DAILY [facility] Last Admin: 06/20/17 08:40 Dose: 81 mg Dextrose (Dextrose 50% Inj) 0 ml IV STAT PRN; Protocol PRN Reason: Hyglycemia Protocol Dextrose (Glutose 15) 0 gm PO ONCE PRN; Protocol PRN Reason: Hypoglycemia Protocol Dextrose (Dextrose 50% Inj) 0 ml IV STAT PRN; Protocol PRN Reason: Hyglycemia Protocol Dextrose (Glutose 15) 0 gm PO ONCE PRN; Protocol PRN Reason: Hypoglycemia Protocol Enoxaparin Sodium (Lovenox) 40 mg SC DAILY [facility] PRN Reason: Protocol Last Admin: 06/20/17 08:39 Dose: 40 mg Furosemide (Lasix) 40 mg IVP DAILY [facility] Last Admin: 06/20/17 08:40 Dose: 40 mg Glucagon (Glucagen Diagnostic Kit) 0 mg IM STAT PRN; Protocol PRN Reason: Hypoglycemia Protocol Glucagon (Glucagen Diagnostic Kit) 0 mg IM STAT PRN; Protocol PRN Reason: Hypoglycemia Protocol Haloperidol Lactate (Haldol) 0.5 mg IVP Q6 PRN PRN Reason: Agitation Home Med (Insulin Glargine, Recombina [Lantus]) 30 unit SC QPM [facility] Home Med (Sitagliptin Phos/Metformin Hcl [Janumet 50-1,000 Mg Tablet]) 1 tab PO BID [facility] Insulin Detemir (Levemir) 15 units SC QPM [facility] Insulin Human Regular (Humulin R) 0 units SC ACHS [facility] PRN Reason: Protocol Last Admin: 06/20/17 12:55 Dose: 3 units Metformin HCl (Glucophage) 1,000 mg PO BID [facility] Last Admin: 06/20/17 08:40 Dose: 1,000 mg Mirtazapine (Remeron) 30 mg PO HS [facility] Last Admin: 06/19/17 21:27 Dose: Not Given Sitagliptin Phosphate (Januvia) 50 mg PO BID [facility] Last Admin: 06/20/17 08:40 Dose: 50 mg Results - Vital Signs Recent Vital Signs: Last Vital Signs Temp 97.4 F L 06/20/17 13:29 Pulse 68 06/20/17 13:29 Resp 20 06/20/17 13:29 BP 162/78 H 06/20/17 13:29 Pulse Ox 94 L 06/20/17 08:58 - Labs Result Diagrams: 06/19/17 04:10 06/19/17 04:10 Labs: Laboratory Results - last 24 hr 06/19/17 06/19/17 06/20/17 15:51 21:24 04:54 POC Glucose (mg/dL) 260 H 213 H 133 H 06/20/17 11:05 POC Glucose (mg/dL) 261 H Assessment & Plan (1) Edema Status: Acute (2) Mitral valve vegetation Status: Acute (3) Diabetes Status: Chronic (4) Hypertension Status: Chronic - Assessment and Plan (Free Text) Plan: I REVIEWED THE IMAGES MYSELF OF THE TTE. PT HAS CALCIFIED ANT MV LEAFLET, NO PHYSICAL SIGNS OF ENDOCARDITIS ON EXAM. OTHER POSSIBLE ETIOLOGIES OF A VENTRICULAR SIDED MV GROWTH IS LIBMAN-SACHS ENDOCARDITIS. FOR EDEMA, IT IS LIKELY DUE TO NORVASC. SUGGEST SWITCHING TO RAMIPRIL 5MG. 60 MIN TOTAL CARE.
[2017-06-20 16:42] VITALS: BP 137/68; PULSE 82; RESP 16; TEMP 98.4; O2SAT 98
--- NOTE | 2017-06-21 08:49 | CP.PCM.DIS ---
Provider - Provider Date of Admission: 06/20/17 01:09 Attending physician: Brittney Tellez MD Time Spent in preparation of Discharge (in minutes): 20 Diagnosis - Discharge Diagnosis (1) Edema Status: Acute Comment: due to amlodipine Hospital Course - Lab Results Lab Results: Most Recent Lab Values WBC 6.9 K/uL (4.8-10.8) 06/19/17 04:10 RBC 4.24 Mil/uL (3.80-5.20) 06/19/17 04:10 Hgb 11.0 g/dL (12.0-16.0) L 06/19/17 04:10 Hct 34.6 % (34.0-47.0) 06/19/17 04:10 MCV 81.6 fl (81.0-99.0) 06/19/17 04:10 MCH 26.0 pg (27.0-31.0) L 06/19/17 04:10 MCHC 31.9 g/dL (33.0-37.0) L 06/19/17 04:10 RDW 14.6 % (11.5-14.5) H 06/19/17 04:10 Plt Count 250 K/uL (130-400) 06/19/17 04:10 MPV 9.1 fl (7.2-11.7) 06/19/17 04:10 Neut % (Auto) 62.0 % (50.0-75.0) 06/19/17 04:10 Lymph % (Auto) 26.5 % (20.0-40.0) 06/19/17 04:10 [place] % (Auto) 8.4 % (0.0-10.0) 06/19/17 04:10 Eos % (Auto) 2.5 % (0.0-4.0) 06/19/17 04:10 Baso % (Auto) 0.6 % (0.0-2.0) 06/19/17 04:10 Neut # 4.2 K/uL (1.8-7.0) 06/19/17 04:10 Lymph # 1.8 K/uL (1.0-4.3) 06/19/17 04:10 [place] # 0.6 K/uL (0.0-0.8) 06/19/17 04:10 Eos # 0.2 K/uL (0.0-0.7) 06/19/17 04:10 Baso # 0.0 K/uL (0.0-0.2) 06/19/17 04:10 PT 11.2 Seconds (9.8-13.1) 06/18/17 10:46 INR 1.0 (0.9-1.2) 06/18/17 10:46 Sodium 145 mmol/l (132-148) 06/19/17 04:10 Potassium 3.7 MMOL/L (3.6-5.0) 06/19/17 04:10 Chloride 109 mmol/L (98-107) H 06/19/17 04:10 Carbon Dioxide 28 mmol/L (22-30) 06/19/17 04:10 Anion Gap 12 (10-20) 06/19/17 04:10 BUN 16 mg/dl (7-17) 06/19/17 04:10 Creatinine 1.3 mg/dL (0.7-1.2) H 06/19/17 04:10 Est GFR ( Amer) 47 06/19/17 04:10 Est GFR (Non-Af Amer) 39 06/19/17 04:10 POC Glucose (mg/dL) 261 mg/dL (65-110) H 06/20/17 11:05 Random Glucose 69 mg/dL (65-105) 06/19/17 04:10 Calcium 9.4 mg/dL (8.4-10.2) 06/19/17 04:10 Total Bilirubin 0.3 mg/dl (0.2-1.3) 06/19/17 04:10 AST 34 U/L (14-36) 06/19/17 04:10 ALT 39 U/L (9-52) 06/19/17 04:10 Alkaline Phosphatase 95 U/L (38-126) 06/19/17 04:10 NT-Pro-B Natriuret Pep 467 pg/ml (0-900) 06/18/17 10:46 Total Protein 6.8 G/DL (6.3-8.2) 06/19/17 04:10 Albumin 3.5 g/dL (3.5-5.0) 06/19/17 04:10 Globulin 3.3 gm/dL (2.2-3.9) 06/19/17 04:10 Albumin/Globulin Ratio 1.1 (1.0-2.1) 06/19/17 04:10 - Hospital Course Hospital Course: 86 Female with PMH with baseline Dementia, HTN and DM comes to [facility] for CHF exacerbation. Pt was given IV laxis and she responded to treatment. U/S and xray of the lower extremity neg, no changes on EKG, Echo with EF 65-70%. Medications adjusted, amlodipine d/c, pt started on Ramipril 5mg daily, and levemir decreased to 10 Units HS. Pt will follow up with Dr. Barron as outpatient. Dr. Barron may consider Lupus workup based on cardiology recs. Of note, CHF ruled out, echo normal systolic function with EF 65-70%. Edema likely 2/2 to amlodipine, d/c amlodipine and started on ramipril. Discharge Exam - Head Exam Head Exam: ATRAUMATIC, NORMAL INSPECTION, NORMOCEPHALIC - Eye Exam Eye Exam: EOMI, Normal appearance, PERRL - ENT Exam ENT Exam: Mucous Membranes Moist - Neck Exam Neck exam: Full Rom - Respiratory Exam Respiratory Exam: Clear to PA & Lateral, NORMAL BREATHING PATTERN, UNREMARKABLE - Cardiovascular Exam Cardiovascular Exam: REGULAR RHYTHM, +S1, +S2 - GI/Abdominal Exam GI & Abdominal Exam: Normal Bowel Sounds, Soft. absent: Guarding, Mass, Tenderness - Extremities Exam Extremities exam: full ROM, pedal edema (edema noted b/l 1+ up to the knees) - Back Exam Back exam: NORMAL INSPECTION. absent: CVA tenderness (L), CVA tenderness (R) - Neurological Exam Neurological exam: Alert (awake, but not fully oriented. ) - Psychiatric Exam Psychiatric exam: Normal Affect, Normal Mood - Skin Skin Exam: Dry, Intact, Normal Color, Warm Discharge Plan - Discharge Medications Prescriptions: Insulin Detemir [Levemir] 15 units SC QPM #1 vial Ramipril [Altace] 5 mg PO DAILY #30 cap - Follow Up Plan Condition: FAIR Disposition: HOME/ ROUTINE Instructions: Amlodipine (By mouth), Heart Failure (DC) Additional Instructions: Pt schedule to see her PCP on 07/16/17 at 9:00am, will need cardiology referral Pt also advised to take only 10units if insulin, and discontinue the 30units Please stop taking Amlodipine 10mg as it is the underlying cause of pedal edema ; start taking Ramipril 5mg daily Referrals: Hans Tiwari MD [Staff Provider] - Helena Barron MD [Family Provider] -
== END 2017-06-20 16:20 | disposition home or self-care (01) | DRG 206 ==
LOC: H.ER 08:51 → H.ERHOLD 11:50 → H.TEL 15:50 → OBSVTOIN 06-20 01:09
PROVIDERS: ADMIT Family Medicine Geriatric Medicine; ATTEND Family Medicine Geriatric Medicine
DX: J70.2 Acute drug-induced interstitial lung disorders (principal); F03.91 Unspecified dementia, unspecified severity, with behavioral disturbance; F05 Delirium due to known physiological condition; I11.0 Hypertensive heart disease with heart failure; I50.9 Heart failure, unspecified; T46.1X5A Adverse effect of calcium-channel blockers, initial encounter; E10.9 Type 1 diabetes mellitus without complications; D64.9 Anemia, unspecified; Z79.4 Long term (current) use of insulin; Y92.009 Unspecified place in unspecified non-institutional (private) residence as the place of occurrence of the external cause